=== PATIENT | female | born 1985 | race African-American/Black ===

== ENCOUNTER 2016-06-19 13:46 | Inpatient (IN) | payer MEDICAID, OTHER ==
[~2016-06-19 13:46] MED LIST: AMO500 PO; NIFE60TA60 PO
[2016-06-19] MEDS: LACTATED RINGER'S 1,000 ML IV SCH ×2 (15:20→23:30)
--- NOTE | 2016-06-19 16:35 | RADRPT ---
PROCEDURE: Limited obstetric ultrasound CLINICAL INDICATION: Pain TECHNIQUE: Multiple transverse and longitudinal grayscale images of the pelvis were obtained baltazar sabdominally and transvaginally.. COMPARISON: same day FINDINGS: The cervix is closed with a length of 3.3 cm. RPTAT: AA IMPRESSION: Cervix length measures 3.3 cm. .Tavon Mishra MD, MD Date Time Electronically viewed and signed by .Tavon Mishra MD, MD on 06/19/2016 16:35 .S/
--- NOTE | 2016-06-19 16:44 | RADRPT ---
AMENDMENT: 06/19/2016 6:19:36 PM Tavon Mishra M.D The EFW = 403 g, <3%, based on LMP age. PROCEDURE: US OB. CLINICAL INDICATION: pain TECHNIQUE: Multiple sonographic images of the pelvis and gravid uterus were obtained. The images were reviewed on a PACS workstation. COMPARISON: No prior studies are available for comparison. FINDINGS: The cervix is closed with a length of 3.3 cm. There is a single viable intrauterine gestation. Cardiac activity is present with 171 beats per min erin. There is a vertex presentation. The placenta is anterior. There is no evidence for an abruption or placenta previa. There is a normal amount of amniotic fluid with an ALPESH = 15.8 cm. Measurements were made in order to determine age. The results are as follows: BPD =5.3 cm HC =19.1 cm AC =16.3 cm FL =3.4 cm Estimated gestational age of approximately 21 weeks and 3 days based on ultrasound measurements. Clinical age: 26 weeks and 5 days. The estimated date of delivery is 10/27/16, based on ultrasound measurements. The EFW = 103 g, <3%, based on LMP age. RPTAT: AA IMPRESSION: Single viable intrauterine gestation of approximately 21 weeks and 3 days based on ultrasound measu rements. .Tavon Mishra MD, MD Date Time Electronically viewed and signed by .Tavon Mishra MD, MD on 06/19/2016 18:20 .S/
[2016-06-19 16:52] LABS: BASOPHIL # 0.1 10^3/ul (0.0-0.1); BASOPHILS % 0.6 % (0.0-2.0); EOSINOPHILS % 0.5 % (0.0-7.0); HEMOGLOBIN 13.2 g/dl (12.0-16.0); LYMPHOCYTES # 1.6 10^3/ul (0.8-2.9); LYMPHOCYTES % 17.2 % (15.0-51.0); MEAN CORPUSCULAR HEMOGLOBIN 30.2 pg (29.0-33.0); MEAN CORPUSCULAR HGB CONC 33.8 g/dl (32.0-37.0); MEAN CORPUSCULAR VOLUME 89.3 fl (82.0-101.0); MEAN PLATELET VOLUME 9.2 fl (7.4-10.4); MONOCYTE # 0.5 10^3/ul (0.3-0.9); MONOCYTES % 4.8 % (0.0-11.0); NEUTROPHIL # 7.2 10^3/ul (1.6-7.5); NEUTROPHILS % 76.9 % (39.0-77.0); PLATELET COUNT 250 10^3/UL (140-440); RED BLOOD COUNT 4.37 10^6/ul (4.20-5.40); RED CELL DISTRIBUTION WIDTH 13.4 % (11.5-14.5); UNCORRECTED WBC 9.4 10^3/ul (4.8-10.8); WHITE BLOOD COUNT 9.4 10^3/ul (4.8-10.8)
[2016-06-19 16:56] LABS: INR 1.02; PROTIME 13.4 Sec (12.2-14.2)
[2016-06-19 16:57] LABS: ALBUMIN 3.6 g/dl (3.3-4.9); PARTIAL THROMBOPLASTIN TIME 28.4 Sec (25.0-35.0)
[2016-06-19 16:58] LABS: POTASSIUM 4.1 mmol/L (3.5-5.1)
[2016-06-19 17:00] LABS: ALBUMIN/GLOBULIN RATIO 1.02; BILIRUBIN,INDIRECT 0.3 mg/dl (0-1.1); BILIRUBIN,TOTAL 0.3 mg/dl (0.2-1.3); CREATININE 0.57 mg/dl (0.44-1.00); TOTAL PROTEIN 7.1 g/dl (6.1-8.1)
[2016-06-19 17:01] LABS: CALCIUM 8.7 mg/dl (8.4-10.2); URIC ACID 3.4 mg/dl (3.1-7.9)
[2016-06-19 17:17] LABS: CONDITION 1
[2016-06-19 17:19] LABS: ADD UMIC YES; URINE BILIRUBIN (Dip) NEGATIVE (NEGATIVE); URINE BLOOD (Dip) 2+ (NEGATIVE); URINE COLOR LT. YELLOW (YELLOW); URINE GLUCOSE (Dip) NEGATIVE (NEGATIVE); URINE KETONES (Dip) NEGATIVE (NEGATIVE); URINE LEUKOCYTE ESTERASE (Dip) TRACE (NEGATIVE); URINE NITRITE (Dip) NEGATIVE (NEGATIVE); URINE TOTAL PROTEIN (Dip) NEGATIVE (NEGATIVE); URINE UROBILINOGEN (Dip) 0.2 E.U./dL (0.1-1.0)
[2016-06-19 17:39] LABS: BACTERIA,URINE MODERATE; MUCUS,URINE MODERATE; SQUAMOUS EPITHELIAL CELL,UR MANY
[2016-06-19 18:01] LABS: CANNABINOIDS Negative (NEGATIVE)
[2016-06-19 18:18] LABS: BARBITURATES Negative (NEGATIVE); BENZODIAZEPINES Negative (NEGATIVE); COCAINE Negative (NEGATIVE); OPIATES Negative (NEGATIVE)
--- NOTE | 2016-06-19 18:30 | QN ---
Documentation Comment 30 years old with IUP at 21 weeks and 3 days with no prental care presented to L&D due to lgith vaginal bleeding had this arternoon. Denies any LOF. Feels some cramps. Patient has no care. reports her LMP estimated to be in , stated that she had been seen once on 02/01/2016 at [facility] due to nausea and severe headache and was told that she is . Denies having any ultrasound or care so far. She was noted to have elevated blood pressure on arrival. Her BPP was 180/100- 190's/105. She denies any blurred vision or epigastric pain. She reports history of preclampsia in prior and IUGR . Patient refused antihypertensive medications. She denies any known history of HTN. Reports had some nausea and side effects with all antihypertensive medications in the prior and therefore refuse treatment of HTN even after prolonged counseling about the risks for stroke, cardiovascular disorder, renarl failure, maternal deathm seizure as well as risk for IUFD, severe IUGR and catastrophic maternal and consequences. after detailed and repeated counseling, patient still refusing treatment and verbalized understainding all above risks and stated because of risks associated with antihypertensive meds, refused meds. I discussed with her in detail at this point risks of antihypertensive meds are much less than the benefits, but still she refuses. Us after arrival ordered that showes GA at 21 weeks and 3 days. CL: 3.3 cm. No previa noted with no evidence of abruption. EFW < 3 % by GA by LMP EGA by the time that she was seen at ED at , would be arround 23 weeks and 6 days which could be arround the viability. SSE : performed . Cervix looks closed and long and no blood seen in the vault I explained to the patient due to non availability of early ultrasound and poor dating, her GA would be between 21-23 + weeks. increased risk for labor due to presence of vaginal bleeding and cramping can not be excluded. I discussed this case with Dr. Rene an who recommended to proceed with consultation with inspector and if inspector would not resuscitate the baby in case of PTD at this EFW, would not recommend tocolysis or steriod.. How ever, if inspector consider resuscitation in the case of PTD, would consider steriod and tocolysis. After discussion with the patient about recommendation of perinatologist, patient refused tocolysis. She stated that she would not either consider recieving steriods or any other intervention at this time, She agreed to only being monitored in the hospital and being seen tomorrow by perinatologist. She understands the risk for PTD, IUFD., still , seizure, matenal and with no intervention at this situation. Will be admitted to antepartum service for overnight observation Patient has been signed out to the upcoming laborist. KRISTOFER PEPPER MD Jun 19, 2016 18:29
--- NOTE | 2016-06-19 20:43 | TRIAGE ---
OB Triage Datetime Report Generated by CPN: 06/19/2016 20:42 Datetime: 06/19/2016 20:23 Monitor Mode: External US Datetime: 06/19/2016 20:09 Monitor Mode: External US Datetime: 06/19/2016 20:00 Labor Evaluation Frequency: 1 Monitor Mode: External Duration (sec)2399: 50 Quality: Mild Pattern: Normal: <= 5 Contractions in 10 Minutes Resting Tone [employer]: Relaxed Heart Rate FHR Baseline Rate: 145 Monitor Mode: External US Variability: Moderate 6-25 bpm Accelerations: 10X10 Decelerations: None Datetime: 06/19/2016 19:00 Stage of : OB Triage Maternal Assessment Level of Consciousness: Fully Conscious DTR's/Clonus: DTRs 1+ Headache: Denies Breath Sounds, Left: Clear and Equal Breath Sounds, Right: Clear and Equal Nausea/Vomiting: Denies RUQ Epigastric Pain: Denies Labor Evaluation Frequency: 1 Monitor Mode: External Duration (sec)2399: 40 Quality: Mild Pattern: Normal: <= 5 Contractions in 10 Minutes Resting Tone [employer]: Relaxed Heart Rate FHR Baseline Rate: 150 Monitor Mode: External US Variability: Moderate 6-25 bpm Accelerations: 10X10 Decelerations: None Category: Category I Pain Presence: None/Denies Pain Type: N/A Pain Goal: 0 Membrane Status: Intact Datetime: 06/19/2016 18:27 EGA: 26.5 Datetime: 06/19/2016 18:00 Stage of : OB Triage Maternal Assessment Level of Consciousness: Fully Conscious DTR's/Clonus: DTRs 1+ Headache: Denies Breath Sounds, Left: Clear and Equal Breath Sounds, Right: Clear and Equal Nausea/Vomiting: Denies RUQ Epigastric Pain: Denies Labor Evaluation Frequency: 1 Monitor Mode: External Duration (sec)2399: 40 Quality: Mild Pattern: Normal: <= 5 Contractions in 10 Minutes Resting Tone [employer]: Relaxed Heart Rate FHR Baseline Rate: 150 Monitor Mode: External US Variability: Moderate 6-25 bpm Accelerations: 10X10 Decelerations: None Category: Category I Pain Presence: None/Denies Pain Type: N/A Pain Goal: 0 Membrane Status: Intact Datetime: 06/19/2016 17:26 Stage of : OB Triage Datetime: 06/19/2016 17:09 Maternal Assessment Level of Consciousness: Fully Conscious DTR's/Clonus: DTRs 1+ Headache: Denies Blurred Vision: No Respiratory Effort: Unlabored Breath Sounds, Left: Clear and Equal Breath Sounds, Right: Clear and Equal Nausea/Vomiting: Denies RUQ Epigastric Pain: Denies Facial Edema: None Labor Evaluation Frequency: NONE Monitor Mode: External Resting Tone [employer]: Relaxed Heart Rate FHR Baseline Rate: 150 Monitor Mode: External US Variability: Moderate 6-25 bpm Accelerations: 10X10 Decelerations: None Category: Category I Pain Presence: None/Denies Pain Type: N/A Membrane Status: Intact Datetime: 06/19/2016 16:55 Vaginal Exam Dilatation (cms): 0.0 Effacement (%): 0 Station: -4 Exam By: DR PEPPER Vaginal Bleeding: Normal Show Cervix, Consistency: Firm Cervix, Position: Posterior Datetime: 06/19/2016 15:26 Maternal Assessment Level of Consciousness: Fully Conscious DTR's/Clonus: DTRs 1+ Headache: Denies Blurred Vision: No Nausea/Vomiting: Denies RUQ Epigastric Pain: Denies Facial Edema: None Labor Evaluation Frequency: X1 Monitor Mode: External Duration (sec)2399: 30 Quality: Mild Pattern: Normal: <= 5 Contractions in 10 Minutes Resting Tone [employer]: Relaxed Heart Rate FHR Baseline Rate: 150 Monitor Mode: External US Variability: Moderate 6-25 bpm Accelerations: 10X10 Decelerations: None Category: Category I Pain Assessment Pain Scale: 0 Pain Presence: None/Denies Pain Type: N/A Pain Goal: 3 Membrane Status: Intact Datetime: 06/19/2016 15:03 Stage of : OB Triage Maternal Assessment Level of Consciousness: Fully Conscious DTR's/Clonus: DTRs 1+ Headache: Denies Blurred Vision: No Respiratory Effort: Unlabored Breath Sounds, Left: Clear and Equal Breath Sounds, Right: Clear and Equal Nausea/Vomiting: Denies RUQ Epigastric Pain: Denies Facial Edema: None Labor Evaluation Frequency: NONW Pattern: Normal: <= 5 Contractions in 10 Minutes Resting Tone [employer]: Relaxed Heart Rate FHR Baseline Rate: 145 Monitor Mode: External US Variability: Moderate 6-25 bpm Accelerations: 10X10 Decelerations: None Category: Category I Pain Assessment Pain Scale: 0 Pain Presence: None/Denies Pain Type: N/A Pain Goal: 3 Membrane Status: Intact Datetime: 06/19/2016 14:33 Stage of : OB Triage Datetime: 06/19/2016 14:20 Maternal Assessment Level of Consciousness: Fully Conscious DTR's/Clonus: DTRs 1+ Headache: Denies Blurred Vision: No Nausea/Vomiting: Denies RUQ Epigastric Pain: Denies Facial Edema: None Labor Evaluation Frequency: NONE Monitor Mode: External Resting Tone [employer]: Relaxed Heart Rate FHR Baseline Rate: 150 Monitor Mode: External US Variability: Moderate 6-25 bpm Accelerations: 10X10 Decelerations: None Category: Category I Pain Presence: None/Denies Pain Type: N/A Pain Assessment Comments: PT STATES THAT SHE HAS HAD THIS HIGH BLOOD PRESSURE EPISODES USUSALLY AF TER HER LAST WORKING DAY 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 PT STATES THAT USUALLY SHE REST FOR 3 DAYS ANS A ROW AND THEN HER B/P GOES BACK TO NORMAL AND GOES BA CK TO NORMAL AGAIN. Membrane Status: Intact Datetime: 06/19/2016 13:45 Time of Arrival: 06/19/2016 13:45 Arrived By: Wheelchair Arrived From: Home Chief Complaint: PT CAME IN C/O VAGINAL SPOTTING AND PELVIC PAIN SINCE THIS AM. PT ALSO STATES CHRISTIANNE T SHE HAS BEEN DIAGNOSED WITH PRE-ECLAMSIA WITH PREVIOUS PREGNANCIES AND THIS ONE AND HAS REFUSED TR EATMENT UP TO DATE. PT DENIES HAVING A HEADACHE, VISION CHANGES, EPIGASTRIC PAIN, DTR'S ARE +1 , AN D DENIES GENERALIZED SWELLING. PT STATES HAVING MOVEMENT AND DENIES ANY CONTRACTION AT THIS TI ME Movement: Present Contractions: Denies/Absent Rupture of Membranes: Denies Vaginal Discharge: Denies Recent Sexual Intercouse: Denies Additional Patient Complaints: NONE Provider Notified: SHANTELLE Initial Plan: PIH PANEL, EFW, UA, ALPESH
--- NOTE | 2016-06-19 22:28 | HP ---
Date/Time of Note Date/Time of Note DATE: 06/19/16 TIME: 22:28 OB - History Hx of Present Free Text/Dictation 30 years old with IUP at 21 weeks and 3 days with no prental care presented to L&D due to light vaginal bleeding had this arternoon. Denies any LOF. Feels some cramps. Patient has no care. reports her LMP estimated to be in , stated that she had been seen once on 02/01/2016 at [facility] due to nausea and severe headache and was told that she is . Denies having any ultrasound or care so far. She was noted to have elevated blood pressure on arrival. Her BPP was 180/100- 190's/105. She denies any blurred vision or epigastric pain. She reports history of preclampsia in prior and IUGR . Patient refused antihypertensive medications. She denies any known history of HTN. Reports had some nausea and side effects with all antihypertensive medications in the prior and therefore refuse treatment of HTN even after prolonged counseling about the risks for stroke, cardiovascular disorder, renarl failure, maternal , seizure as well as risk for IUFD, severe IUGR and catastrophic maternal and consequences. after detailed and repeated counseling, patient still refusing treatment , even alternative antiHypertensives and verbalized understainding all above risks and stated because of risks associated with antihypertensive meds, refuses meds. I discussed with her in detail at this point risks of antihypertensive meds are much less than the benefits, but still she refuses. Us after arrival ordered that showes GA at 21 weeks and 3 days. CL: 3.3 cm. No previa noted with no evidence of abruption noted in ultrasound. EFW < 3 % by GA by LMP. I discussed with the patient due to discrepency of up to 2 weeks in second trimester in context of poor dating, and CHTN and likely growth restriction, baby EGA could be anywhere arround the viability. SSE : performed . Cervix looks closed and long and no blood seen in the vault Risk of labor due to cramping and vaginal bleeding vs abruption could not been eliminated. . I discussed this case with Dr. Rene NAAVS edge bonder who recommended to proceed with consultation with fermenting cellars receiver and if fermenting cellars receiver would not resuscitate the baby with less than 500 gram, in case of PTD would not recommend tocolysis or steriod.. How ever, if fermenting cellars receiver consider resuscitation in the case of PTD with current reported EFW, would consider steriod and tocolysis. After discussion with the patient about recommendation of perinatologist, patient refused tocolysis. She stated that she would not either consider recieving steriods or any other intervention at this time, She agreed to only being monitored in the hospital and being seen tomorrow by perinatologist. She understands the risk for PTD, IUFD., still , seizure, matenal and with no intervention at this situation. Will be admitted to antepartum service for overnight observation Patient has been signed out to the upcoming laborist. : 9 Para: 5 Care: None Ultrasounds: Other (see us report at this instituiton) Obstetrical Complications: Other (Poor dating, no care, history of preclampsia, severe elevated BP, consistent with likely CHTN) Past Family/Social History * Past Medical, Surgical, Family and Obstetric Histories reviewed from chart. OB Admission Exam Physical Exam HEENT: WNL Heart: Rhythm Normal Lungs: Clear Abdomen: WNL Extremities: Normal Cervical Dilatation: None Effacement: 0% Station: Other (in SSE: Cevix closed and long , no blood in the vault. exam done witj the same findings ) Membranes: Intact Heart Rate: 120's Intensity: Mild Last 72 hours Lab Results CBC & BMP 06/19/16 15:20 Liver Function Test 06/19/16 15:20 Alanine Aminotransferase (ALT/SGPT) 14 Albumin 3.6 Alkaline Phosphatase 82 Aspartate Amino Transf (AST/SGOT) 16 Direct Bilirubin 0.00 Total Protein 7.1 OB Assessment/Plan Reason for admission: vaginal bleeding Other Assessment: Poor dating IUP at 21-23+ weeks likely CHTN vs PIH PIH labs negative Blood pressure in severe range. Meet the criteria for intervention. Declined all antihypertensive meds after detailed and multiple prolonged counseling Vaginal bleeding, scant with cramps. at risk for abruption , can not r/o PTL Fetus could be arround the viablity since it could be well growth restricted. Declined all interventions including steriods and tocolysis and understands all the above risks Desires only been monitored in the hospital. Stated that is afraid of having miscarriage at home , since she knows that she has bleeding and might miscarried U tox negative Consider rn social work and psych consultation Lan and perinatologist consultation. obtain all records KRISTOFER PEPPER MD Jun 19, 2016 22:28
[2016-06-19] MEDS ORDERED: LACTATED RINGER'S 1,000 ML IV SCH (22:36)
[2016-06-19 23:54] LABS: BASOPHILS % 0.4 % (0.0-2.0); EOSINOPHILS % 0.5 % (0.0-7.0); HEMATOCRIT 36.4 % (37.0-47.0); HEMOGLOBIN 12.5 g/dl (12.0-16.0); LYMPHOCYTES # 2.1 10^3/ul (0.8-2.9); LYMPHOCYTES % 22.8 % (15.0-51.0); MEAN CORPUSCULAR HEMOGLOBIN 30.2 pg (29.0-33.0); MEAN CORPUSCULAR HGB CONC 34.4 g/dl (32.0-37.0); MEAN CORPUSCULAR VOLUME 87.8 fl (82.0-101.0); MONOCYTE # 0.5 10^3/ul (0.3-0.9); MONOCYTES % 5.8 % (0.0-11.0); NEUTROPHIL # 6.7 10^3/ul (1.6-7.5); NEUTROPHILS % 70.5 % (39.0-77.0); PLATELET COUNT 231 10^3/UL (140-440); RED BLOOD COUNT 4.15 10^6/ul (4.20-5.40); RED CELL DISTRIBUTION WIDTH 13.3 % (11.5-14.5); UNCORRECTED WBC 9.4 10^3/ul (4.8-10.8); WHITE BLOOD COUNT 9.4 10^3/ul (4.8-10.8)
[2016-06-20 00:02] LABS: CONDITION 1
[2016-06-20] MEDS: LACTATED RINGER'S 1,000 ML IV SCH ×3 (04:40→20:31)
[2016-06-20] MEDS ORDERED: LABETALOL 100 MG TAB PO SCH ×3 (12:00→21:00)
[2016-06-20] MEDS ORDERED: traMADol 50 MG TAB PO ONE (15:00)
--- NOTE | 2016-06-20 16:53 | CONS ---
DATE OF ADMISSION: 06/19/2016 DATE OF CONSULTATION: 06/20/2016 REQUESTING PHYSICIAN: Linda Cyr MD HISTORY OF PRESENT ILLNESS: I spoke with Ms. House in her room regarding the risks associated with delivery and hypertension. This mother is 30 years old 9, para 5, AB 3 pre senting to [facility] with vaginal spotting, labor and increased blood pre ssures. The mother has refused steroids and magnesium sulfate and is being started on labetalol aft er consult with Dr. Vergara. Mother has had no visits. Her gestational age by ultr asound is 21 and 3/7 weeks with estimated weight of 403 grams or by possible last menstrual pe riod of 26 and 5/7 weeks. Mother believes that it is probably the 21 week gestation. I discussed w ith the mother the risks associated with delivery including but not limited to the following : 1. At 21 and 3/7 weeks this infant is in a previable category and with the weight of only 403 grams and by NRP standards would not be a candidate for resuscitation because of extreme prematurity and extreme low weight. I discussed with her the possibility if the gestation could be prolonged at least another 2 to 3 weeks that there would be the possibility of resuscitation by both the weigh t and gestational age criteria. Also the use of steroids at that time would be helpful as well as t he correction of the hypertension to maintain adequate growth. Some of the risks Include the followin. Respiratory. This infant is at significant risk even at 24 weeks of gestation for respiratory d istress syndrome requiring significant mechanical ventilation, oxygen support and the risks of chron ic lung disease as well as apnea of prematurity. I discussed the use of ventilatory management as w ell as steroids assisting in stabilizing the lungs and the use of surfactant. I spoke about the risks of cardiac disease including patent ductus arteriosus, its treatment either medical or surgical, hypotension and the use of inotropic agents and steroids. I spoke about the risks of infection, especially if rupture of membranes occurs prior to the time of delivery and that at 24 weeks there is significant risk and the long-term decreasing with the advan cement in gestational age. I spoke about the risks of anemia, the use of transfusions, jaundice and the use of phototherapy. I spoke about the risks of intraventricular hemorrhage, as well as its grading system and the antici pated long-term neuro developmental issues associated with grade III and grade IV intraventricular h emorrhages. At 24 weeks gestation, the risk is probably 75 to 80% for grade III to IV intraventricu lar hemorrhage with long-term sequelae decreasing to probably between 25 and 30% by 28 weeks of gest ation. I spoke about the long-term morbidity of those infants that survive as well as survivability at 24 w eeks this is probably less than 30% survivability with most of these infants having significant long -term morbidities either neural developmental and/or respiratory, ophthalmologic etc. I spoke about the differences associated at 28 weeks and 32 weeks of gestation in all of these areas. The mother is still refusing steroids since she feels she is at 21 weeks of gestation, but will cons ider them when she reaches over 24 weeks of gestation as well as the use of tocolytics. She has bee n started on hypertensive medications. I discussed with her the need for good nutrition management of her including her hypertension. Thank you for this consult. If you have any further questions, please do not hesitate to contact me . Dictated By: CONCETTA MOTLEY/SKYLER Conf#: [id number] DID#: [id number]
[2016-06-20] MEDS ORDERED: HYDROCODONE/APAP (5/325) TAB PO ONE ×2 (17:00)
[2016-06-20] MEDS ORDERED: IBUPROFEN 600 MG TAB PO ONE (17:30)
[2016-06-20] MEDS ORDERED: METOCLOPRAMIDE 10 MG INJ IV ONE (19:30)
--- NOTE | 2016-06-20 20:57 | CONS ---
DATE OF ADMISSION: 06/19/2016 DATE OF CONSULTATION: 06/20/2016 INDICATION FOR CONSULTATION: High blood pressure. PRESENTING COMPLAINT: ____. HISTORY OF PRESENTING COMPLAINT: Ms. House is a 30-year-old female who is a 9 para 5, has h ad 2 spontaneous abortions who presented to our triage unit with concerns for vaginal fullness. The patient had no care, and, upon arrival, she was noted to have severely elevated blood pres sures in the 200s. The patient has been quite difficult to manage for the obstetric pain, because t he patient is adamantly refusing blood pressure medication, reporting that they make her sicker inst ead of better. So, my understanding, the patient refused delivery's recommendation for blood pressu re, but now medicine consult was obtained and eventually she was given 1 dose of labetalol ear ly 100 mg today. That improved her blood pressure to systolics of 140s; however, the patient report ed tension headaches or migraines associated with nausea, which she attributes to the blood pressure medicine, labetalol. We are being consulted to evaluate the patient for a possible cause of the el evated blood pressure that is not obvious. However, the patient reports to me that in her last preg marquez, she did have high blood pressure in . She was treated with intravenous magnesium, w hich she is absolutely refusing to take this time. She states that, after delivering the baby, she was treated with Procardia, which controlled her blood pressure quite well. She states she was even tually taken off of this as an outpatient by an outpatient rn documentation. She has not taken blood pr essure medicine since and she has not checked her blood pressure since. She denies any feeling of h eadache, dizziness prior to admission. She has the symptoms right now, but she attributes those to the blood pressure medicine she was given since being admitted. PAST MEDICAL HISTORY: Positive only for gestational hypertension as well as multiple pregnancies. PAST SURGICAL HISTORY: Positive for a salpingectomy for an ectopic . ALLERGIES: SHE REPORTS ALLERGY TO ASPIRIN WELL NOW LABETALOL. REVIEW OF SYSTEMS: A full 12-point review of systems, essentially pertinent findings are as noted i n HPI. SOCIAL HISTORY: She denies tobacco, alcohol, or illicit drug use. FAMILY HISTORY: She denies history of difficulty to control high blood pressure. PHYSICAL EXAMINATION: VITAL SIGNS: At this time, the vital signs are stable. As mentioned earlier, last blood pressure w as 144/75. GENERAL: She was alert and oriented, in no distress. HEENT: Head is normocephalic. Pupils were equal and reactive. Mucous membranes are moist. NECK: Supple. CHEST: Clear. CARDIOVASCULAR: S1 and S2 without added sounds or murmurs. ABDOMEN: Gravid, soft, nontender. She had normoactive bowel sounds. EXTREMITIES: There was no lower extremity edema. NEUROLOGIC: She had no focal deficits. SKIN: Devoid of rash or jaundice. LABORATORY VALUES: Her urinalysis was reviewed and was ____ for probable urinary tract infection. The rest of her labs were reviewed and unremarkable. ASSESSMENT: A 30-year-old female with chronic hypertension and gravid at 26 weeks and 5 days with e levated blood pressure for which we are consulted for blood pressure management, as well as to rule out secondary causes of hypertension. It is my opinion that this patient just has poorly controlled chronic hypertension due to that she has been noncompliant with therapy because says that medicatio ns might harm her. At this point, it seems that delivery has struck and agreement with her to start her on really low doses of labetalol and titrate up as tolerated. I agree with this plan, as the p atient is not willing to try any other regimen. I will therefore defer to maternal specialist to continue blood pressure control. Regarding ruling out secondary causes, I will order a renal ul trasound to rule out renal artery stenosis and I will order 2D echocardiogram to ensure that there h as been no fdc effect of her chronic hypertension on her cardiac musculature. Other than that, I do not think any further intervention is warranted. It is my opinion that the patient needs ornamental metal erector apprentice ej fdc management, but she has to be convinced to take this therapy. This, I will defer to th e labor for the health of herself and her baby. I have indicated this to her; however, I am not rebekah e how much she understands. Her urine is also mildly suggestive of a urinary tract infection, so I will be ordering a urine culture. I will follow up on this test tomorrow and other interventions wi ll depend on clinical findings. I thank you for this consult and I will follow the patient with you. Dictated By: TRACEY WINN MD, BA/SKYLER Conf#: [id number] DID#: [id number]
--- NOTE | 2016-06-21 00:32 | CONS ---
DATE OF ADMISSION: 06/19/2016 DATE OF CONSULTATION: HISTORY OF PRESENT ILLNESS: The patient is a 30-year-old, presented yesterday with complaint of vag inal bleeding. Upon admission, she was found to have very severe-range blood pressures as far as sy stolic blood pressures 190s to 200s and diastolic blood pressure up to 105, 110. The patient denies any headache, chest pain, nausea or vomiting. She experienced vaginal bleeding yesterday, and she complained of occasional cramping. Cervical length was measured, and it was 3.3 cm and cervix and a pparently closed. There is an evidence of abruption of about 1 x 4 cm based on the ultrasound done yesterday. Her history is significant for preeclampsia and placental abruption, patient at 37 weeks 2 years ago. She has so far declined any treatment for her blood pressure as she states that she h as no symptoms. Also, after I started speaking to her, it appears that patient has had bad reaction s to many blood pressure medications which she does not recall the names. She states that upon rece iving blood pressure medication with her last , she had numbness of one side of her extremi ties. She experienced swelling and numbness. Apparently after she delivered, she had a large hemorrhage but no DIC. Also she mentioned that magn esium sulfate caused her swelling. heart tones are reassuring for the gestational age. In terms of her gestational age, she has not had previous ultrasound for comparison, and also she has not had care as she states she has been feeling well and she does not feel that she needed to have care, especially with her experience that she had with the previous . 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 I explained to her that essentially what she experienced last time most likely was not secondary to the effect of blood pressure medications and it was effect of increased blood pressures on her nervo us system and her blood vessels and also that preeclampsia can cause swelling. In terms of the gestational age, as I mentioned above, she has not had any previous ultrasound. She is unsure of her last menstrual period. Ultrasound yesterday was done which showed the gestational age to be about 21 weeks and due date of 10/27. This morning, she had some pinkish discharge. It was no problem, but as I have been talking to her, she has experienced 1 cramping. PAST MEDICAL HISTORY: Hypertension. However, the patient has not had any care after delivery. She mentioned that after delivery last time, her blood pressures suddenly increased to about 200 mmHg s ystolic. She was given some blood pressure medication that finally she did well with. She was on b lood pressure medication for about 4 weeks, and after that, she mentioned her blood pressures decrea sed to about 140 to 80, and after that, she stopped the medication, and she has not been on any medi cation ever since. REVIEW OF SYSTEMS: Per above, otherwise negative. PHYSICAL EXAMINATION: VITAL SIGNS: Currently blood pressure is 163/106. Physical exam deferred. Ultrasound as above. heart tone as above. LABORATORY: Platelets, AST, ALT, creatinine are within normal limits. Protein in UA shows no evide nce of protein. [id number] urine has not been started for collection. IMPRESSION: Intrauterine with severe, currently chronic hypertension leading to some smal l placental abruption. The patient has had multiple problems with multiple blood pressure medicatio ns per her with the previous . However, it is difficult to associate whether the problems were the side effects for the medication or because of her preeclampsia. I explained in detail about the physiology as what is going on, and I asked her if she would allow _ ___ to start her on a very, very low dose of labetalol 100 mg twice a day and follow the patient. I explained to her that severe-range blood pressures could lead to full placental abruption, de mise and can lead to maternal , DIC, and it is very important for her blood pressures to be con trolled. I also explained to her that the goal for the blood pressure management at this point is to decrease the blood pressure to about 140s to 160s over 80s to 90s as lowering it further would actually harm to the fetus and the mother as she is not accustomed to normal blood pressures. Currently, I do recommend to continue with ANNETTA of 10/27 as there is no previous ultrasound for christo vogel, the patient is not sure of her last menstrual period, and she reports 2 last menstrual period s, and one of her last menstrual periods actually coordinates with the ANNETTA of 10/27 that was obtaine d from her ultrasound yesterday. RECOMMENDATIONS: Labetalol 100 mg twice a day should be started. Please monitor blood pressures closely, and we can always decrease the dose if needed and patient delgado s problems with that to a lower dose. However, again, it's a very, very low dose of blood pressure medication. The goal for the blood pressure on this patient is systolic 140s to 160s and diastolics 80s to 90s. Please collect 24-hour urine for protein and creatinine clearance. Currently pre-viable gestation, and as such, betamethasone is not indicated. Please note that the patient has reaction to Tylenol and it should be avoided, and also SHE IS ALLER GIC TO ASPIRIN. Please locate her records from 2 years ago at the time [facility] delivery and [facility] the name of the hypertension medication she received and she was happy with at the previous . If labetalol 100 mg twice a day, she reacts to that, despite severe decrease in the blood pressure, Internal Medicine should be consulted to evaluate the hypertension further, and this patient is 30-y ear-old, she does not have any family history suggestive of young hypertension, and other causes of hypertension should be considered, especially if she reacts badly to the very, very low dose of the labetalol. I talked to her about the necessity of the patient choosing an automatic stacker and having perinatology followup. I spoke to the patient in detail for about 40 minutes. I spoke to Dr. Cuellar, who is the laborist and will take care of the patient today, and I also spoke to the nurse in detail about what I discu ssed at this point. Dictated By: CHANELL SCHREIBER/SKYLER Conf#: [id number] DID#: [id number]
[2016-06-21] MEDS: LACTATED RINGER'S 1,000 ML IV SCH (04:10)
[2016-06-21] MEDS ORDERED: METOCLOPRAMIDE 10 MG INJ IV PRN ×2 (05:30)
[2016-06-21] MEDS ORDERED: ACETAMINOPHEN 500 MG TAB PO PRN (09:00)
--- NOTE | 2016-06-21 09:24 | PN ---
Date/Time of Note Date/Time of Note DATE: 06/21/16 TIME: 09:05 OB Subjective Subjective Subjective 06/21/2016 Hospital consult and discharge summary: This patient is a 30 yol SAB2 ectopic 1, who was admitted on 06-19 due to vaginal spotting and elevated BpP odf 180/100 and 176/109 She has a poor OB history: Here is partial observation by perinatologist Dr Amado: The patient is a 30-year-old, presented yesterday with complaint of vaginal bleeding. Upon admission, she was found to have very severe-range blood pressures as far as systolic blood pressures 190s to 200s and diastolic blood pressure up to 105, 110. The patient denies any headache, chest pain, nausea or vomiting. She experienced vaginal bleeding yesterday, and she complained of occasional cramping. Cervical length was measured, and it was 3.3 cm and cervix and apparently closed. There is an evidence of abruption of about 1 x 4 cm based on the ultrasound done yesterday. Her history is significant for preeclampsia and placental abruption, patient at 37 weeks 2 years ago. She has so far declined any treatment for her blood pressure as she states that she has no symptoms. Also, after I started speaking to her, it appears that patient has had bad reactions to many blood pressure medications which she does not recall the names. She states that upon receiving blood pressure medication with her last , she had numbness of one side of her extremities. She experienced swelling and numbness. Her lab works so far were WNL .She has several complains and wants to leave the hospital because Labetalol of 50 mg every 12 hours make her sick! She wants to go home and leave the hospital AMA. Her 24 hour urine collection is not completed yet. I discussed Current Medications Medications (Trade) Dose Ordered Sig/Rosanne Route PRN Reason Start Time Stop Time Status Last Admin Dose Admin Lactated Ringer's 1,000 ml @ 125 mls/hr Q8H IV 06/19/16 15:30 06/21/16 04:10 Lactated Ringer's (Lr) 1,000 ml @ 125 mls/hr Q8H IV 06/19/16 22:36 06/19/16 22:41 DC Labetalol HCl (Normodyne) 100 mg BID PO 06/20/16 12:00 06/20/16 18:13 DC 06/20/16 12:40 Tramadol HCl (Ultram) 50 mg ONCE ONCE PO 06/20/16 15:00 06/20/16 15:01 DC 06/20/16 15:36 Acetaminophen/ Hydrocodone Bitart (Vanderbilt (5/325)) 1 tab ONCE ONCE PO 06/20/16 17:00 06/20/16 18:24 DC 06/20/16 17:33 Acetaminophen/ Hydrocodone Bitart (Vanderbilt (5/325)) 1 tab ONCE ONCE PO 06/20/16 17:00 06/20/16 17:28 DC Ibuprofen (Motrin) 600 mg ONCE ONCE PO 06/20/16 17:30 06/20/16 17:31 DC 06/20/16 17:36 Labetalol HCl (Normodyne) 100 mg BID PO 06/20/16 21:00 06/20/16 21:00 DC Labetalol HCl (Normodyne) 50 mg BID PO 06/20/16 21:00 06/20/16 21:22 Metoclopramide HCl (Reglan) 5 mg ONCE ONCE IV 06/20/16 19:30 06/20/16 19:31 DC 06/20/16 20:29 Metoclopramide HCl (Reglan) 5 mg Q6H PRN IV NAUSEA 06/21/16 05:30 Metoclopramide HCl (Reglan) 10 mg Q6H PRN IV NAUSEA 06/21/16 05:30 06/21/16 05:29 Acetaminophen (Tylenol Tab) 1,000 mg Q6H PRN PO PAIN AND OR ELEVATED TEMP 06/21/16 09:00 06/21/16 08:48 her situation with regarding staying at least one more day. but she is already changing cloths to go home .Her lab works are not very abnormal. she promised to continue urine collection and bring back the container on time . BRITTANI HUBBARD MD Jun 21, 2016 09:19
--- NOTE | 2016-06-21 10:11 | RADRPT ---
Echocardiogram Report Patient Name: MARY HAMM Gender: Female Date: 1985 Study Date: 21-Jun-2016 Resource Conservation Specialist: Joanne Quinn [facility] Location: [id number] Ref. Physician: TRACEY WINN Quality: Good Procedures: Transthoracic echocardiogram with complete 2D, M-Mode, and doppler examination. Indications: Chronic Hypertension. 2D/M Mode Doppler Measurement Value Normal Ranges Measurement Value Normal Ranges LVIDd 2D 4.4 3.5 - 5.6 cm AV Peak Herminio 1.6 m/sec LVIDs 2D 2.4 2.1 - 4.1 cm AV Peak PG 10.0 mmHg FS 2D 44.0 % LVOT Peak Herminio 1.2 m/sec LVPWd 2D 1.1 0.6 - 1.1 cm LVOT Peak PG 5.0 mmHg IVSd 2D 1.1 0.6 - 1.1 cm MV E Peak Herminio 0.9 m/sec IVS/LVPW 2D 1.0 MV A Peak Herminio 0.7 m/sec AoR Diam 2D 2.5 2.0 - 3.7 cm MV E/A 1.4 LA/Ao 2D 1 0 - 1 MV Decel Time 190 msec EDV 2D 82.9 cm3 MV E/A 1.4 ESV 2D 14.5 cm3 TR Peak Herminio 2.3 m/sec LA Dimen 2D 3.2 2.3 - 4.0 cm TR Peak PG 20.0 mmHg RVSP 23.0 mmHg Findings Left Ventricle: Normal left ventricular systolic function. Normal left ventricular cavity size. Mild concentric left ventricular hypertrophy. Ejection fraction is visually estimated at 65 %. Tissue Doppler/Mitral Doppler indices are within normal limits. Right Ventricle: Normal right ventricular size. Normal right ventricular systolic function. Left Atrium: The left atrium is normal in size. Right Atrium: The right atrium is normal in size. Mitral Valve: Normal appearance and function of the mitral valve with trace physiologic regurgitation. Aortic Valve: Normal appearance of the aortic valve. No significant aortic stenosis or insufficiency. Tricuspid Valve: Normal appearance of the tricuspid valve. Estimated peak PA systolic pressure 23 mmHg. There is trace tricuspid regurgitation. Pericardium: Normal pericardium with no significant pericardial effusion. Aorta: Normal aortic root. IVC: Normal size and normal respiratory collapse consistent with normal right atrial pressure. Conclusions 1.Normal left ventricular systolic function. Normal left ventricular cavity size. Mild concentric left ventricular hypertrophy. Ejection fraction is visually estimated at 65 %. Tissue Doppler/Mitral Doppler indices are within normal limits. 2.Normal appearance and function of the mitral valve with trace physiologic regurgitation. 3.Normal appearance of the aortic valve. No significant aortic stenosis or insufficiency. 4.Normal appearance of the tricuspid valve. Estimated peak PA systolic pressure 23 mmHg. There is trace tricuspid regurgitation. Electronically Signed By: Jose Good 21-Jun-2016 10:10:11 0800 Patient Name: MARY HAMM Study Date: 21-Jun-[id number]
== END 2016-06-21 09:05 | disposition left against medical advice (07) | DRG 781 ==
LOC: OBT 13:46 → L-D 13:49 → OBT 18:55 → OBG 18:55
PROVIDERS: ADMIT Obstetrics & Gynecology Obstetrics; ATTEND Obstetrics & Gynecology Obstetrics
DX: O16.2 Unspecified maternal hypertension, second trimester (principal); Z3A.26 26 weeks gestation of pregnancy
CPT/HCPCS: 36415; 76775; 76815; 76817; 80053; 80307; 81001; 81003; 83036; 84439; 84443; 84560; 85025; 85610; 85730; 86592; 86703; 86762; 86900; 86901; 87340; 93306; 96360; 96361; G0463; J2765; J7120

== ENCOUNTER 2016-06-21 22:59 | Outpatient (CLI) | payer MEDICAID ==
--- NOTE | 2016-06-21 23:27 | TRIAGE ---
OB Triage Datetime Report Generated by CPN: 06/21/2016 23:26 Datetime: 06/21/2016 23:15 Time of Arrival: 06/21/2016 22:55 EGA: 27.0 Arrived By: Ambulatory Arrived From: Home Chief Complaint: to ER triage and states was inpt on 2NE but went home AMA in am because "I w as being overmedicated for my BP." States "I am only here to drop off the 24hr urine collection." Movement: Present Contractions: Denies/Absent Rupture of Membranes: Denies Vaginal Bleeding: None Vaginal Discharge: Denies Recent Sexual Intercouse: Denies Abdominal Trauma: Not Applicable Patient Complaints: None Time Provider Notified: 06/21/2016 23:10 Provider Notified: Dr Samaniego Datetime: 06/21/2016 08:56 Stage of : Antepartum Datetime: 06/21/2016 08:54 Stage of : Antepartum Datetime: 06/21/2016 08:30 Stage of : Antepartum Datetime: 06/21/2016 06:39 Stage of : Antepartum Datetime: 06/21/2016 06:28 Stage of : Antepartum Level of Consciousness: Fully Conscious Headache: Denies Frequency: NONE Monitor Mode: External Pattern: Normal: <= 5 Contractions in 10 Minutes Resting Tone [place]: Relaxed Pain Type: Dull Pain Location: Head Pain Goal: 3 Pain Relief Measures: Pain Medication Given; Comfort Measures Datetime: 06/21/2016 05:39 Stage of : Antepartum Level of Consciousness: Fully Conscious Headache: Denies Frequency: NONE Monitor Mode: External Pattern: Normal: <= 5 Contractions in 10 Minutes Resting Tone [place]: Relaxed Pain Type: Dull Pain Location: Head Pain Goal: 3 Pain Relief Measures: Pain Medication Given; Comfort Measures Datetime: 06/21/2016 04:39 Stage of : Antepartum Level of Consciousness: Fully Conscious Headache: Denies Nausea/Vomiting: Present (Annotations: Emesis of 50 ml, bile in color. Pt stated that she has sle pt all night with no issues until now. She was getting up to go to the restroom.) Temperature Route: Oral Frequency: NONE Monitor Mode: External Pattern: Normal: <= 5 Contractions in 10 Minutes Resting Tone [place]: Relaxed Pain Type: Dull Pain Location: Head Pain Goal: 3 Pain Relief Measures: Pain Medication Given; Comfort Measures Datetime: 06/21/2016 03:39 Stage of : Antepartum Level of Consciousness: Fully Conscious Headache: Denies Nausea/Vomiting: Denies Frequency: NONE Monitor Mode: External Pattern: Normal: <= 5 Contractions in 10 Minutes Resting Tone [place]: Relaxed Pain Type: Dull Pain Location: Head Pain Goal: 3 Pain Relief Measures: Pain Medication Given; Comfort Measures Datetime: 06/21/2016 02:39 Stage of : Antepartum Level of Consciousness: Fully Conscious Headache: Denies Nausea/Vomiting: Denies Frequency: NONE Monitor Mode: External Pattern: Normal: <= 5 Contractions in 10 Minutes Resting Tone [place]: Relaxed Pain Type: Dull Pain Location: Head Pain Goal: 3 Pain Relief Measures: Pain Medication Given; Comfort Measures Datetime: 06/21/2016 01:39 Stage of : Antepartum Level of Consciousness: Fully Conscious Headache: Denies Nausea/Vomiting: Denies Frequency: NONE Monitor Mode: External Pattern: Normal: <= 5 Contractions in 10 Minutes Resting Tone [place]: Relaxed Pain Type: Dull Pain Location: Head Pain Goal: 3 Pain Relief Measures: Pain Medication Given; Comfort Measures Datetime: 06/21/2016 00:39 Stage of : Antepartum Level of Consciousness: Fully Conscious Headache: Denies Nausea/Vomiting: Hx of Nausea/Vomiting Temperature Route: Oral Frequency: NONE Monitor Mode: External Pattern: Normal: <= 5 Contractions in 10 Minutes Resting Tone [place]: Relaxed Pain Presence: Constant Pain Type: Dull Pain Location: Head Pain Goal: 3 Pain Relief Measures: Pain Medication Given; Comfort Measures Pain Assessment Comments: Pt states she feels the Reglan helped the most of anything given since s he was admitted today. Datetime: 06/20/2016 23:39 Stage of : Antepartum Level of Consciousness: Fully Conscious DTR's/Clonus: DTRs 2+; No Clonus Headache: Denies Nausea/Vomiting: Hx of Nausea/Vomiting RUQ Epigastric Pain: Denies Frequency: NONE Monitor Mode: External Pattern: Normal: <= 5 Contractions in 10 Minutes Resting Tone [place]: Relaxed Pain Presence: Constant Pain Type: Dull Pain Location: Head Pain Goal: 3 Pain Relief Measures: Pain Medication Given; Comfort Measures Datetime: 06/20/2016 22:39 Stage of : Antepartum Level of Consciousness: Fully Conscious DTR's/Clonus: DTRs 2+; No Clonus Headache: Denies Nausea/Vomiting: Denies Nausea/Vomiting: Hx of Nausea/Vomiting RUQ Epigastric Pain: Denies Frequency: NONE Monitor Mode: External Pattern: Normal: <= 5 Contractions in 10 Minutes Resting Tone [place]: Relaxed Monitor Mode: External US Pain Presence: Constant Pain Type: Dull Pain Location: Head Pain Goal: 3 Pain Relief Measures: Pain Medication Given; Comfort Measures Datetime: 06/20/2016 21:39 Stage of : Antepartum Level of Consciousness: Fully Conscious DTR's/Clonus: DTRs 2+; No Clonus Headache: Denies Breath Sounds, Left: Clear and Equal Breath Sounds, Right: Clear and Equal Nausea/Vomiting: Denies RUQ Epigastric Pain: Denies Frequency: NONE Monitor Mode: External Pattern: Normal: <= 5 Contractions in 10 Minutes Resting Tone [place]: Relaxed Datetime: 06/20/2016 20:39 Stage of : Antepartum Level of Consciousness: Fully Conscious DTR's/Clonus: DTRs 2+; No Clonus Headache: Denies Breath Sounds, Left: Clear and Equal Breath Sounds, Right: Clear and Equal Nausea/Vomiting: Denies RUQ Epigastric Pain: Denies Frequency: NONE Monitor Mode: External Pattern: Normal: <= 5 Contractions in 10 Minutes Resting Tone [place]: Relaxed Pain Presence: Constant Pain Type: Dull Pain Location: Head Pain Goal: 3 Pain Relief Measures: Pain Medication Given; Comfort Measures Datetime: 06/20/2016 19:52 Stage of : Antepartum Assessment Type: Ongoing Assessment Level of Consciousness: Fully Conscious DTR's/Clonus: DTRs 2+; No Clonus Headache: Denies Blurred Vision: No Respiratory Effort: Unlabored; Regular Rhythm; Equal Expansion Breath Sounds, Left: Clear and Equal Breath Sounds, Right: Clear and Equal Nausea/Vomiting: Denies RUQ Epigastric Pain: Denies Lower Extremities Edema: None Degree: None Upper Extremities Edema: None Degree: None Facial Edema: None Temperature Route: Oral History of Falling: (0) No Secondary Diagnosis: (0) No Ambulatory Aid: (0) Bedrest/Nurse Assist IV Therapy: (0) No Gait: (0) Normal/Bedrest/Immobile Mental Status: (0) Oriented to Own Ability Fall Score: 0 Fall Risk Score Definition: No Risk: No action required Frequency: NONE Monitor Mode: External Pattern: Normal: <= 5 Contractions in 10 Minutes Resting Tone [place]: Relaxed Pain Presence: Constant Pain Type: Dull Pain Location: Head Pain Goal: 3 Pain Relief Measures: Pain Medication Given; Comfort Measures Datetime: 06/20/2016 19:00 Frequency: NONE Monitor Mode: External Pattern: Normal: <= 5 Contractions in 10 Minutes Resting Tone [place]: Relaxed FHR Baseline Rate: 130 Monitor Mode: External US FHR Baseline Changes: No Baseline Change Variability: Moderate 6-25 bpm Accelerations: 10X10 Decelerations: None Category: Category I Datetime: 06/20/2016 18:00 Frequency: NONE Monitor Mode: External Pattern: Normal: <= 5 Contractions in 10 Minutes Resting Tone [place]: Relaxed FHR Baseline Rate: 130 Monitor Mode: External US Variability: Moderate 6-25 bpm Accelerations: 10X10 Decelerations: None Category: Category I Datetime: 06/20/2016 17:00 Frequency: NONE Monitor Mode: External Pattern: Normal: <= 5 Contractions in 10 Minutes Resting Tone [place]: Relaxed FHR Baseline Rate: 130 Monitor Mode: External US FHR Baseline Changes: No Baseline Change Variability: Moderate 6-25 bpm Accelerations: 10X10 Decelerations: None Category: Category I Datetime: 06/20/2016 16:30 Pain Scale: 8 Pain Presence: Constant Pain Type: SEVERE HEAD PAIN Pain Goal: 0 Datetime: 06/20/2016 16:00 Temperature Route: Oral Frequency: NONE Monitor Mode: External Pattern: Normal: <= 5 Contractions in 10 Minutes Resting Tone [place]: Relaxed Datetime: 06/20/2016 15:00 Frequency: NONE Monitor Mode: External Duration (sec)2399: 0 Pattern: Normal: <= 5 Contractions in 10 Minutes Resting Tone [place]: Relaxed Datetime: 06/20/2016 14:00 Frequency: NONE Monitor Mode: External Pattern: Normal: <= 5 Contractions in 10 Minutes Resting Tone [place]: Relaxed Datetime: 06/20/2016 08:17 Assessment Type: Ongoing Assessment Level of Consciousness: Fully Conscious DTR's/Clonus: DTRs 2+; No Clonus Headache: Denies Blurred Vision: No Respiratory Effort: Unlabored; Regular Rhythm; Equal Expansion Breath Sounds, Left: Clear and Equal Breath Sounds, Right: Clear and Equal Nausea/Vomiting: Denies RUQ Epigastric Pain: Denies Lower Extremities Edema: None Degree: None Upper Extremities Edema: None Degree: None Facial Edema: None History of Falling: (0) No Secondary Diagnosis: (0) No Ambulatory Aid: (0) Bedrest/Nurse Assist IV Therapy: (0) No Gait: (0) Normal/Bedrest/Immobile Mental Status: (0) Oriented to Own Ability Fall Score: 0 Fall Risk Score Definition: No Risk: No action required Datetime: 06/20/2016 07:00 Frequency: 0 Monitor Mode: External Resting Tone [place]: Relaxed FHR Baseline Rate: 150 Monitor Mode: External US FHR Baseline Changes: No Baseline Change Variability: Moderate 6-25 bpm Accelerations: 15X15 Decelerations: None Category: Category I Pain Scale: 0 Pain Presence: None/Denies Pain Type: N/A Datetime: 06/20/2016 06:00 Frequency: 0 Monitor Mode: External Resting Tone [place]: Relaxed Monitor Mode: External US Comments: UNABLE TO MONITOR HEART TONES Pain Scale: 0 Pain Presence: None/Denies Pain Type: N/A Datetime: 06/20/2016 05:00 Frequency: 0 Monitor Mode: External Resting Tone [place]: Relaxed Monitor Mode: External US Comments: UNABLE TO ASSESS Pain Presence: None/Denies Pain Type: N/A Datetime: 06/20/2016 04:00 Frequency: NONE SEEN Monitor Mode: External Resting Tone [place]: Relaxed Monitor Mode: External US Comments: UNABLE TO ASSESS HEART TONES Pain Scale: 0 Pain Presence: None/Denies Pain Type: N/A Datetime: 06/20/2016 02:00 Frequency: 0 Monitor Mode: External FHR Baseline Rate: 150 Monitor Mode: External US FHR Baseline Changes: No Baseline Change Variability: Minimal - Undetectable to <=5 bpm Accelerations: 15X15 Decelerations: None Category: Category I Comments: AGA Datetime: 06/20/2016 01:00 Frequency: 0 Monitor Mode: External FHR Baseline Rate: 150 Monitor Mode: External US FHR Baseline Changes: No Baseline Change Variability: Minimal - Undetectable to <=5 bpm Accelerations: 15X15 Decelerations: None Category: Category I Comments: AGA Datetime: 06/20/2016 00:17 Temperature Route: Oral Pain Scale: 5 Pain Presence: Intermittent Pain Type: Cramping Pain Location: Abdomen Pain Goal: 0 Pain Relief Measures: Comfort Measures Datetime: 06/20/2016 00:00 Frequency: 0 FHR Baseline Rate: 150 Monitor Mode: External US FHR Baseline Changes: No Baseline Change Variability: Minimal - Undetectable to <=5 bpm Accelerations: 15X15 Decelerations: Variable Category: Category II Datetime: 06/19/2016 23:00 Frequency: 0 Monitor Mode: External FHR Baseline Rate: 150 Monitor Mode: External US FHR Baseline Changes: No Baseline Change Variability: Minimal - Undetectable to <=5 bpm Accelerations: 10X10 Decelerations: Variable Category: Category II Datetime: 06/19/2016 22:00 Frequency: 0 Monitor Mode: External Contraction Comments: NO CTXS REGISTERING BUT SHE STATES SHE STILL FEELS CRAMPING. DIFFICULT TO MO NITOR FETUS AND CONTRACTIONS D/T GESTATIONAL AGE AND SMALL UTERUS ( FUNDUS AT UMBILICUS ). FHR Baseline Rate: 150 Monitor Mode: External US FHR Baseline Changes: No Baseline Change Variability: Minimal - Undetectable to <=5 bpm Accelerations: 10X10 Decelerations: None Category: Category I Comments: AGA Datetime: 06/19/2016 21:00 Assessment Type: Admission Assessment Level of Consciousness: Fully Conscious DTR's/Clonus: DTRs 2+; No Clonus Headache: Denies Blurred Vision: No Respiratory Effort: Unlabored; Regular Rhythm; Equal Expansion Breath Sounds, Left: Clear and Equal Breath Sounds, Right: Clear and Equal Nausea/Vomiting: Denies RUQ Epigastric Pain: Denies Facial Edema: None History of Falling: (0) No Secondary Diagnosis: (0) No Ambulatory Aid: (0) Bedrest/Nurse Assist Gait: (0) Normal/Bedrest/Immobile Mental Status: (0) Oriented to Own Ability Datetime: 06/19/2016 20:51 Temperature Route: Oral Pain Scale: 5 Pain Goal: 3 Pain Relief Measures: Comfort Measures Pain Assessment Comments: DENIES NEED FOR MED Datetime: 06/19/2016 20:35 Stage of : Antepartum Datetime: 06/19/2016 18:27 EGA: 26.5
== END 2016-06-21 23:02 | disposition left against medical advice (07) ==
LOC: OBT 22:59 → L-D 23:00 → OBT 23:02
PROVIDERS: ATTEND Obstetrics & Gynecology
DX: O26.892 Other specified pregnancy related conditions, second trimester (principal); Z3A.27 27 weeks gestation of pregnancy

== ENCOUNTER 2016-07-19 13:12 | Outpatient (CLI) | payer MEDICAID ==
[~2016-07-19] VITALS: Ht 167.6 cm; Wt 76.8 kg
[2016-07-19 13:25] VITALS: BP 177/106; PULSE 85; RESP 18; Ht 167.6 cm; Wt 76.8 kg
--- NOTE | 2016-07-19 14:54 | RADRPT ---
PROCEDURE: OB ultrasound for biophysical profile CLINICAL INDICATION: Cramping. Biophysical profile. . TECHNIQUE: Multiple sonographic images of the pelvis were obtained. Transabdominal view of the gr avid uterus are available for review. The images were reviewed on a PACS workstation. COMPARISON: None FINDINGS: breathing movement = 2/2 tone = 2/2 motion = 2/2 ALPESH = 2/2 Single intrauterine gestation is identified in cephalic position. heart rate is 159 bpm. Plac enta is anterior without evidence for abruption or previa. ALPESH measures 14.6 cm, within normal limi ts. IMPRESSION: 1. Single live intrauterine gestation. 2. Biophysical profile = 8/8. 3. ALPESH = 14.6 cm. RPTAT: QQ .Jose R Jarvis MD, Date Time Electronically viewed and signed by .Jose R Jarvis MD, on 07/19/2016 14:53 .R/
== END 2016-07-19 15:37 | disposition left against medical advice (07) ==
LOC: OBT 13:12 → L-D 13:13 → OBT 15:37
DX: O26.892 Other specified pregnancy related conditions, second trimester (principal); R10.9 Unspecified abdominal pain; Z3A.00 Weeks of gestation of pregnancy not specified
CPT/HCPCS: 76818; Z7500; G0463

== ENCOUNTER 2016-07-19 15:52 | Emergency (ER) | payer MEDICAID ==
[~2016-07-19] VITALS: Ht 167.6 cm; Wt 76.8 kg
[2016-07-19 16:03] VITALS: Ht 167.6 cm; Wt 76.8 kg
--- NOTE | 2016-07-19 16:51 | RADRPT ---
PROCEDURE: CT head without Contrast CLINICAL INDICATION: Status post fall with vomiting. The patient is 7-month TECHNIQUE: Transaxial images were made through the head on a multi-slice scanner without intraveno us contrast. Coronal and sagittal images were subsequently reformatted. The patient was shielded du ring the procedure. One or more of the following dose reduction techniques were used: - Automated exposure control. - Adjustment of the mA and/or kV according to patient size. - Use of iterative reconstruction technique. Radiation dose: CTDIvol = 44.68 mGy; DLP = 630.20 mGy-cm. COMPARISON: None FINDINGS: The calvarium appears intact. The mastoid air cells and paranasal sinuses are well-aerated.. The ventricles are normal in size and there is no midline shift. No intracranial bleed, mass, or extra-axial fluid collection is identified. There is good gentile-white matter differentiation. IMPRESSION: Unremarkable noncontrast enhanced CT scan of the head. Physician Mahnaz Date Time Electronically viewed and signed by Physician Mahnaz on 07/19/2016 16:51 /
[2016-07-19 17:26] VITALS: BP 159/87; PULSE 81; RESP 19
--- NOTE | 2016-07-19 19:21 | ERA ---
ER Documentation Chief Complaint Date/Time DATE: 07/19/16 TIME: 19:05 Chief Complaint head pain/injury - hit her head in the shower - 7 months HPI 30-year-old woman requesting CT imaging of the brain after falling in the bathroom last night and striking the left temporal parietal scalp against the tub. She states after the incident she vomited about 5-10 minutes later. She states today she has been feeling generally weak, cloudy, and out of it. She is over 30 weeks and presented today for an obstetric ultrasound, which was performed by our obstetrics department, and a CT scan of the brain. Obstetrics department could not clear her for any acute obstetric issues as she was extremely hypertensive so she was released AGAINST MEDICAL ADVICE. She denies headache or blurry vision, no weakness in her arms or legs, no difficulty ambulating, no complaints of chest pain or shortness of breath. Patient is at least G6 and states with all her she has been extremely hypertensive and does not "believe" in medications, and states in fact she does not even have a regular warp worker or physician, and does not want one. Patient also denied any domestic violence issues and states she was not punched or kicked in the head. ROS All systems reviewed and are negative except as per history of present illness. Medications Home Meds Discontinued Reported Medications Amoxicillin* (Amoxicillin*) 500 Mg Cap, 500 MG PO Q8, CAP 02/27/14 Discontinued Scripts Nifedipine* (Procardia XL*) 60 Mg/Bottle Tab.osm.24, 60 MG PO DAILY for 60 Days , TAB.SA Prov:JUAN MAGAÑA MD 02/02/14 Allergies Allergies: Coded Allergies: aspirin (Verified Allergy, Intermediate, UPSET STOMACH, 07/19/16) Uncoded Allergies: LABETOLOL (Adverse Reaction, Intermediate, RINGING IN EARS, CRAMPING, HEADACHE., 01/28/14) PMhx/Soc Hypertension, eclampsia, preeclampsia History of Surgery: No Anesthesia Reaction: No Hx Neurological Disorder: No Hx Respiratory Disorders: No Hx Cardiac Disorders: No (HTN) Hx Psychiatric Problems: No Hx Miscellaneous Medical Probl: Yes (dx: 37 wks IUP PIH) Hx Alcohol Use: Yes (socially before ) Hx Substance Use: No Hx Tobacco Use: No Smoking Status: Never smoker FmHx Family History: No diabetes Physical Exam Vitals Vital Signs Date Time Temp Pulse Resp B/P Pulse Ox O2 Delivery O2 Flow Rate FiO2 07/19/16 17:26 81 19 159/87 100 Room Air 07/19/16 16:03 98.8 87 19 184/116 100 Physical Exam GENERAL: Well-developed, well-nourished, well-hydrated, in no apparent distress , extremely hypertensive HEENT: Moist mucous membranes, pink conjunctiva, no cervical spine tenderness or step-off deformities, no goiter, no jaundice or icterus, extraocular movements intact without pain. No submandibular induration, and no pharyngeal erythema NEURO: Alert and oriented 3, cranial nerves II through XII intact bilaterally, pupils equal round reactive to light, no focal deficits or facial asymmetry, sensation intact distally Strength 5/5 in upper and lower extremities bilaterally CARDIAC: Regular rate and rhythm, no murmurs rubs or gallops LUNGS: Clear bilaterally no wheezing crackles or stridor ABDOMEN: Soft nontender, no guarding, no rigidity, no rebound, no psoas sign no obturator sign. Normoactive bowel sounds SKIN: Warm and dry to touch, no abrasions, contusions, or hematomas, no lacerations, no ecchymosis, no target lesions, and without ulcers EXTREMITIES: No clubbing cyanosis or edema, calves are bilaterally symmetrical, no Homans sign, no popliteal cord sign. Distal pulses equal and bilateral PSYCH: Normal affect without agitation or irritability Procedures/MDM CT scan of the brain was performed that was negative for acute bleed mass or shift. I kindly tried to explain in simple terms the scientific process and evidence- based medical decision making in regards to her condition and need for treatment. I was unable to steer her away from belief based thought process. I also explained to her thoroughly that I suspect her symptoms including the cloudiness, generalized weakness and dizziness, episodic tinnitus are most likely related to severe hypertension and preeclampsia, which is really at this point moving toward eclampsia. I explained to her complications of preeclampsia and eclampsia include but are not limited to aspiration pneumonia, cerebral hemorrhage, kidney failure, seizures, cardiac arrest, and even . I told her it would be in her best interest to stay for further emergency department evaluation, management, treatment, although patient remained firm in her beliefs and refused any further care. Differential diagnoses considered, included but not limited to acute coronary syndrome, pulmonary embolism, aortic dissection, abdominal aortic aneurysm, sepsis, stroke, meningitis, encephalitis, pneumonia, appendicitis, cholecystitis , bowel obstruction, pyelonephritis, nephrolithiasis, cystitis, as well as metabolic, hematologic, and electrolyte abnormalities. As well as abscess, cellulitis, fractures, and dislocations. Patient left AGAINST MEDICAL ADVICE. Departure Diagnosis: Primary Impression: Hypertension Qualified Code: I10 - Essential hypertension Additional Impressions: Concussion Qualified Code: S06.0X0A - Concussion, without loss of consciousness, initial encounter Eclampsia Condition: Fair Patient Instructions: Concussion, High Blood Pressure (Hypertension), Ovid Form - 1 Referrals: family physician EFREN SOUTH MD Jul 19, 2016 19:15
== END 2016-07-19 17:29 | disposition left against medical advice (07) ==
LOC: E/R 15:52
DX: O9A.213 Injury, poisoning and certain other consequences of external causes complicating pregnancy, third trimester (principal); S06.0X0A Concussion without loss of consciousness, initial encounter; O15.03 Eclampsia complicating pregnancy, third trimester; O10.013 Pre-existing essential hypertension complicating pregnancy, third trimester; R40.2142 Coma scale, eyes open, spontaneous, at arrival to emergency department; R40.2252 Coma scale, best verbal response, oriented, at arrival to emergency department; R40.2362 Coma scale, best motor response, obeys commands, at arrival to emergency department; W01.198A Fall on same level from slipping, tripping and stumbling with subsequent striking against other object, initial encounter; Y92.192 Bathroom in other specified residential institution as the place of occurrence of the external cause; Z3A.30 30 weeks gestation of pregnancy
CPT/HCPCS: 70450; Z7502

== ENCOUNTER 2016-09-01 15:13 | Outpatient (CLI) | payer MEDICAID ==
[~2016-09-01] VITALS: Ht 167.6 cm; Wt 77.1 kg
[2016-09-01 15:35] VITALS: BMI 27.4
[2016-09-01 15:36] VITALS: BP 165/98; PULSE 83; RESP 18; Ht 167.6 cm; Wt 77.1 kg
[2016-09-01 15:37] VITALS: BP 165/98; PULSE 83; RESP 18
--- NOTE | 2016-09-01 15:59 | RADRPT ---
PROCEDURE: US OB. CLINICAL INDICATION: Size and dates TECHNIQUE: Multiple sonographic images of the pelvis and gravid uterus were obtained. The images were reviewed on a PACS workstation. COMPARISON: 07/19/16 FINDINGS: There is a single viable intrauterine gestation. Cardiac activity is present with 141 beats per min erin. There is a vertex presentation. The placenta is anterior right. There is no evidence for an abruption or placenta previa. There is a normal amount of amniotic fluid with an ALPESH = 10.9 cm. Measurements were made in order to determine age. The results are as follows: BPD =7.7 cm HC =28 cm AC =28.5 cm FL =5.9 cm Estimated gestational age of approximately 31 weeks and 1 day based on ultrasound measurements. Clinical age: 32 weeks and 0 days. The estimated date of delivery is 11/02/16, based on ultrasound measurements. The EFW = 1808 g, 27.9%, based on LMP age. RPTAT: AA IMPRESSION: Single viable intrauterine gestation of approximately 31 weeks and 1 day based on ultrasound measur ements. .Tavon Mishra MD, Date Time Electronically viewed and signed by .Tavon Mishra MD, on 09/01/2016 15:58 .S/
--- NOTE | 2016-09-01 16:00 | RADRPT ---
PROCEDURE: US OB biophysical profile. Ultrasound cervix CLINICAL INDICATION: decreased movements, no PNR TECHNIQUE: Multiple sonographic images of the pelvis were obtained. The images were reviewed on a PACS workstation. In addition transvaginal images of the cervix were obtained. COMPARISON: 07/19/2016 FINDINGS: The cervix measures 4.5 cm in length. The cervix is heterogeneous with possible cystic changes. There is a single viable intrauterine gestation. Cardiac activity is present with 136 beats per min erin. There is a vertex presentation. The placenta is anterior right. There is no evidence for an abruption or placenta previa. There is a normal amount of amniotic fluid with an ALPESH = 10.9 cm. Biophysical profile: movement 2/2 tone 2/2. breathing 2/2 ALPESH 2/2 Total 01/17 RPTAT: AA . IMPRESSION: Normal biophysical profile. Heterogeneous cervix with possible cystic changes. . .Tavon Mishra MD, MD Date Time Electronically viewed and signed by .Tavon Mishra MD, on 09/01/2016 16:00 .S/
[2016-09-01 16:13] LABS: ADD SCAN DIFF NO
[2016-09-01 16:16] LABS: BASOPHILS % 0.4 % (0.0-2.0); EOSINOPHILS % 0.4 % (0.0-7.0); HEMATOCRIT 31.7 % (37.0-47.0); HEMOGLOBIN 10.8 g/dl (12.0-16.0); LYMPHOCYTES # 1.7 10^3/ul (0.8-2.9); LYMPHOCYTES % 21.5 % (15.0-51.0); MEAN CORPUSCULAR HEMOGLOBIN 28.7 pg (29.0-33.0); MEAN CORPUSCULAR HGB CONC 34.1 g/dl (32.0-37.0); MEAN CORPUSCULAR VOLUME 84.3 fl (82.0-101.0); MEAN PLATELET VOLUME 10.5 fl (7.4-10.4); MONOCYTE # 0.6 10^3/ul (0.3-0.9); MONOCYTES % 6.9 % (0.0-11.0); NEUTROPHIL # 5.7 10^3/ul (1.6-7.5); NEUTROPHILS % 70.7 % (39.0-77.0); PLATELET COUNT 222 10^3/UL (140-415); RED BLOOD COUNT 3.76 10^6/ul (4.20-5.40); RED CELL DISTRIBUTION WIDTH 12.3 % (11.5-14.5); WHITE BLOOD COUNT 8.1 10^3/ul (4.8-10.8)
[2016-09-01 16:23] LABS: ADD UMIC YES; URINE BILIRUBIN (Dip) NEGATIVE (NEGATIVE); URINE BLOOD (Dip) NEGATIVE (NEGATIVE); URINE COLOR LT. YELLOW (YELLOW); URINE GLUCOSE (Dip) NEGATIVE (NEGATIVE); URINE KETONES (Dip) TRACE (NEGATIVE); URINE LEUKOCYTE ESTERASE (Dip) 1+ (NEGATIVE); URINE NITRITE (Dip) NEGATIVE (NEGATIVE); URINE TOTAL PROTEIN (Dip) NEGATIVE (NEGATIVE); URINE UROBILINOGEN (Dip) 0.2 E.U./dL (0.1-1.0)
[2016-09-01 16:26] LABS: INR 1.03; PARTIAL THROMBOPLASTIN TIME 28.8 Sec (25.0-35.0); PROTIME 13.5 Sec (12.2-14.2); PT RATIO 1.1
[2016-09-01 16:31] LABS: BACTERIA,URINE MANY; SQUAMOUS EPITHELIAL CELL,UR MANY; URINE RBCS NONE SEEN /HPF (0)
[2016-09-01 16:35] LABS: ALBUMIN 3.1 g/dl (3.3-4.9)
[2016-09-01 16:36] LABS: POTASSIUM 3.6 mmol/L (3.5-5.1)
[2016-09-01 16:38] LABS: ALBUMIN/GLOBULIN RATIO 0.96; BILIRUBIN,INDIRECT 0.2 mg/dl (0-1.1); BILIRUBIN,TOTAL 0.2 mg/dl (0.2-1.3); CREATININE 0.59 mg/dl (0.44-1.00); TOTAL PROTEIN 6.3 g/dl (6.1-8.1)
[2016-09-01 16:39] LABS: CALCIUM 8.2 mg/dl (8.4-10.2); URIC ACID 4.5 mg/dl (3.1-7.9)
--- NOTE | 2016-09-01 17:01 | CONS ---
Date/Time of Note Date/Time of Note DATE: 09/01/16 TIME: 16:52 Consultation Date/Type/Reason Admit Date/Time September 01, 2069 OB triage consult Reason for Consultation This patient is a 31 years old 9 para 5 3 1 living following normal spontaneous vaginal delivery 5 her due date is 518 which makes her 32 weeks She came to triage complaining of vaginal bleeding and pressure She says she had intercourse last night On her history indicated that she had high blood pressure throughout her last but never took any hyper-antihypertension medication old baby survived for this reason she does not want to take any medication for her elevated blood pressure Her vital signs are normal except for elevated blood pressure her BP is 165/90 157/90-160 2/95 3 definitely pulse rate 83 respiration 18 temperature 98.2 On exam she is a young lady near term. Her ENT neck appears to be no chest is clear heart normal sinus rhythm abdomen is soft heart tone is normal around 135 bpm she has very rare heart rate tracing has fairly good variability and accelerations no decelerations. The lab study that we have done her CBC is normal except for some degree of anemia with hemoglobin of 10.8 hematocrit of 31.7 platelet 232,000 no protein in urine her NST is reactive on ultrasound biophysical profile was reported 01/17 with ALPESH of 10.9 cm estimated weight 1808 g cervical length was reported 4.5 cm Laboratory Tests Test 09/01/16 16:00 09/01/16 16:07 Urine Color LT. YELLOW Urine Clarity CLOUDY Urine pH 6.5 Urine Specific [place] 1.020 Urine Ketones TRACE Urine Nitrite NEGATIVE Urine Bilirubin NEGATIVE Urine Urobilinogen 0.2 E.U./dL Urine Leukocyte Esterase 1+ Urine Microscopic RBC NONE SEEN/HPF Urine Microscopic WBC >50/HPF Urine Squamous Epithelial Cells MANY Urine Bacteria MANY Urine Hemoglobin NEGATIVE Urine Glucose NEGATIVE% Urine Total Protein NEGATIVE White Blood Count 8.110^3/ul Red Blood Count 3.7610^6/ul Hemoglobin 10.8g/dl Hematocrit 31.7% Mean Corpuscular Volume 84.3fl Mean Corpuscular Hemoglobin 28.7pg Mean Corpuscular Hemoglobin Concent 34.1g/dl Red Cell Distribution Width 12.3% Platelet Count 77310^3/UL Mean Platelet Volume 10.5fl Neutrophils % 70.7% Lymphocytes % 21.5% Monocytes % 6.9% Eosinophils % 0.4% Basophils % 0.4% Nucleated Red Blood Cells % 0.0/100WBC Neutrophils # 5.710^3/ul Lymphocytes # 1.710^3/ul Monocytes # 0.610^3/ul Eosinophils # 0.010^3/ul Basophils # 0.010^3/ul Nucleated Red Blood Cells # 0.010^3/ul Prothrombin Time 13.5Sec Prothrombin Time Ratio 1.1 INR International Normalized Ratio 1.03 Activated Partial Thromboplast Time 28.8Sec Fibrinogen 446.0mg/dl Sodium Level 137mmol/L Potassium Level 3.6mmol/L Chloride Level 105mmol/L Carbon Dioxide Level 22mmol/L Anion Gap 14 Blood Urea Nitrogen 7mg/dl Creatinine 0.59mg/dl Glucose Level 95mg/dl Uric Acid 4.5mg/dl Calcium Level 8.2mg/dl Total Bilirubin 0.2mg/dl Direct Bilirubin 0.00mg/dl Indirect Bilirubin 0.2mg/dl Aspartate Amino Transf (AST/SGOT) 15IU/L Alanine Aminotransferase (ALT/SGPT) 17IU/L Alkaline Phosphatase 211IU/L Total Protein 6.3g/dl Albumin 3.1g/dl Globulin 3.20g/dl Albumin/Globulin Ratio 0.96 Constitutional: improved, no complaints, No chills, No diaphoresis, No disoriented, No febrile, No other, No poor po, No requiring IVF, No requiring O2 Eyes: No discharge, No no complaints, No other, No pain, No redness, No visual change ENT: No bleeding, No congestion, No discharge, No dysphagia, No no complaints, No other, No pain, No sore throat Respiratory: other (Elevated blood pressure with average of 160/90), No cough, No no complaints, No pain, No pleuritic pain, No shortness of breath, No sputum, No wheezing Cardiovascular: No chest pain, No edema, No lightheadedness, No no complaints, No orthopenea, No other, No palpitations, No paroxysmal nocturnal dyspnea Gastrointestinal: No blood, No constipation, No decreased appetite, No diarrhea , No flatus, No nausea, No no complaints, No other, No pain, No passing stool, No vomiting Genitourinary: other (On pelvic exam her cervix is closed and long with intact membrane apparently), No bleeding, No discharge, No dysuria, No flank pain, No hematuria, No no complaints Musculoskeletal: No back pain, No bone/joint pain, No neck pain, No no complaints, No other, No restricted range of motion, No swelling Skin: No bruising, No erythema, No laceration, No no complaints, No other, No pruritis, No rash, No skin lesions Neurologic: other (Knee-jerk reflexes 1+), No confusion, No dizziness, No focal-weakness, No headache, No no complaints , No seizure, No syncope Endocrine: No dry skin, No no complaints, No other, No polydypsia, No polyuria , No temp intolerance Psychological: No anxiety, No confusion, No depression, No nl mood/affect, No no complaints, No other, No suicidal Immunologic: No immunodeficiency, No no complaints, No other, No pruritis, No rhinitis, No urticaria Social History Smoking Status: Never smoker Exam/Review of Systems Vital Signs Vitals Vital Signs Date Time Temp Pulse Resp B/P Pulse Ox O2 Delivery O2 Flow Rate FiO2 09/01/16 15:37 98.2 83 18 165/98 Room Air Results Result Diagram: 09/01/16 1607 09/01/16 1607 Results 24 hrs Laboratory Tests Test 09/01/16 16:00 09/01/16 16:07 Urine Color LT. YELLOW Urine Clarity CLOUDY Urine pH 6.5 Urine Specific [place] 1.020 Urine Ketones TRACE H Urine Nitrite NEGATIVE Urine Bilirubin NEGATIVE Urine Urobilinogen 0.2 E.U./dL Urine Leukocyte Esterase 1+ H Urine Microscopic RBC NONE SEEN Urine Microscopic WBC >50 Urine Squamous Epithelial Cells MANY Urine Bacteria MANY Urine Hemoglobin NEGATIVE Urine Glucose NEGATIVE Urine Total Protein NEGATIVE White Blood Count 8.1 Red Blood Count 3.76 L Hemoglobin 10.8 L Hematocrit 31.7 L Mean Corpuscular Volume 84.3 Mean Corpuscular Hemoglobin 28.7 L Mean Corpuscular Hemoglobin Concent 34.1 Red Cell Distribution Width 12.3 Platelet Count 222 Mean Platelet Volume 10.5 H Neutrophils % 70.7 Lymphocytes % 21.5 Monocytes % 6.9 Eosinophils % 0.4 Basophils % 0.4 Nucleated Red Blood Cells % 0.0 Neutrophils # 5.7 Lymphocytes # 1.7 Monocytes # 0.6 Eosinophils # 0.0 Basophils # 0.0 Nucleated Red Blood Cells # 0.0 Prothrombin Time 13.5 Prothrombin Time Ratio 1.1 INR International Normalized Ratio 1.03 Activated Partial Thromboplast Time 28.8 Fibrinogen 446.0 Sodium Level 137 Potassium Level 3.6 Chloride Level 105 Carbon Dioxide Level 22 Anion Gap 14 Blood Urea Nitrogen 7 Creatinine 0.59 Glucose Level 95 Uric Acid 4.5 Calcium Level 8.2 L Total Bilirubin 0.2 Direct Bilirubin 0.00 Indirect Bilirubin 0.2 Aspartate Amino Transf (AST/SGOT) 15 Alanine Aminotransferase (ALT/SGPT) 17 Alkaline Phosphatase 211 H Total Protein 6.3 Albumin 3.1 L Globulin 3.20 Albumin/Globulin Ratio 0.96 BRITTANI HUBBARD MD Sep 01, 2016 17:01
--- NOTE | 2016-09-01 17:21 | QN ---
Documentation Comment September 01, 2016 This is an addendum to the triage consult already dictated half an hour ago This patient and 31 with very high blood pressure 160/100 advised to start taking antihypertensive medication and to see perinatologist but she adamantly refused to take our advice. She said she do not want take any medication I do not want to do anything special , no visit no medication for high blood pressure. For this reason we requested to sign an AMA form indicating that she would be responsible for any consequences of not following to standard medical care. I spent at least another 20 minutes to explain to her that elevated blood pressure during can harm the baby to placenta future of the baby and you do not necessarily have any symptoms to start taking medication but she totally refused end of dictation thank you BRITTANI HUBBARD MD Sep 01, 2016 17:21
== END 2016-09-01 17:35 | disposition home or self-care (01) ==
LOC: OBT 15:13 → L-D 15:13 → OBT 17:35
DX: O16.3 Unspecified maternal hypertension, third trimester (principal); Z3A.32 32 weeks gestation of pregnancy
CPT/HCPCS: 76815; 76817; 76818; 80053; 81001; 84560; 85025; 85384; 85610; 85730; Z7500; 81003; G0463

== ENCOUNTER 2016-09-28 08:56 | Inpatient (IN) | payer MEDICAID, OTHER ==
[~2016-09-28] VITALS: Ht 167.6 cm; Wt 77.8 kg
[2016-09-28 09:18] VITALS: BP 203/127; PULSE 65; RESP 18; BMI 27.5
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
[2016-09-28 10:41] LABS: ADD SCAN DIFF NO
[2016-09-28 10:49] LABS: BASOPHILS % 0.5 % (0.0-2.0); EOSINOPHILS % 0.5 % (0.0-7.0); HEMATOCRIT 33.8 % (37.0-47.0); HEMOGLOBIN 11.6 g/dl (12.0-16.0); LYMPHOCYTES % 25.6 % (15.0-51.0); MEAN CORPUSCULAR HEMOGLOBIN 29.1 pg (29.0-33.0); MEAN CORPUSCULAR HGB CONC 34.3 g/dl (32.0-37.0); MEAN CORPUSCULAR VOLUME 84.9 fl (82.0-101.0); MEAN PLATELET VOLUME 11.2 fl (7.4-10.4); MONOCYTE # 0.6 10^3/ul (0.3-0.9); MONOCYTES % 7.6 % (0.0-11.0); NEUTROPHIL # 5.1 10^3/ul (1.6-7.5); NEUTROPHILS % 65.5 % (39.0-77.0); PLATELET COUNT 207 10^3/UL (140-415); RED BLOOD COUNT 3.98 10^6/ul (4.20-5.40); RED CELL DISTRIBUTION WIDTH 12.7 % (11.5-14.5); WHITE BLOOD COUNT 7.7 10^3/ul (4.8-10.8)
[2016-09-28 11:02] LABS: ALBUMIN 3.1 g/dl (3.3-4.9)
[2016-09-28 11:05] LABS: ALBUMIN/GLOBULIN RATIO 0.91; BILIRUBIN,INDIRECT 0.3 mg/dl (0-1.1); BILIRUBIN,TOTAL 0.3 mg/dl (0.2-1.3); CREATININE 0.67 mg/dl (0.44-1.00); TOTAL PROTEIN 6.5 g/dl (6.1-8.1)
[2016-09-28 11:06] LABS: CALCIUM 8.6 mg/dl (8.4-10.2); URIC ACID 5.1 mg/dl (3.1-7.9)
[2016-09-28 11:08] LABS: INR 1.06; PARTIAL THROMBOPLASTIN TIME 26.9 Sec (25.0-35.0); PROTIME 13.8 Sec (12.2-14.2); PT RATIO 1.1
[2016-09-28] MEDS ORDERED: LACTATED RINGER'S 1,000 ML IV SCH (11:54)
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
[2016-09-28 12:50] LABS: ADD UMIC YES; URINE BILIRUBIN (Dip) NEGATIVE (NEGATIVE); URINE BLOOD (Dip) 3+ (NEGATIVE); URINE COLOR LT. YELLOW (YELLOW); URINE GLUCOSE (Dip) NEGATIVE (NEGATIVE); URINE KETONES (Dip) NEGATIVE (NEGATIVE); URINE LEUKOCYTE ESTERASE (Dip) 1+ (NEGATIVE); URINE NITRITE (Dip) NEGATIVE (NEGATIVE); URINE TOTAL PROTEIN (Dip) NEGATIVE (NEGATIVE); URINE UROBILINOGEN (Dip) 0.2 E.U./dL (0.1-1.0)
[2016-09-28 12:58] LABS: BACTERIA,URINE FEW
--- NOTE | 2016-09-28 13:04 | RADRPT ---
PROCEDURE: US OB limited. CLINICAL INDICATION: Intrauterine growth restriction. TECHNIQUE: Multiple transabdominal sonographic images of the pelvis were obtained. Doppler interrog ation of the umbilical artery was performed. COMPARISON: Biophysical profile and OB ultrasound 09/28/2016. FINDINGS: There is a single live intrauterine in cephalic presentation with heart motion of 16 5 beats per minute. The placenta is anteriorly located and without evidence of previa or abruption. Doppler evaluation of the umbilical artery demonstrates a normal wave form. S/D ratio is 2.5, whic h is within the range of normal. IMPRESSION: Normal umbilical arterial Doppler. RPTAT: [facility] .Sonal Cope MD, MD Date Time Electronically viewed and signed by .Sonal Cope MD, MD on 09/28/2016 13:04 .T/
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
[2016-09-29] MEDS ORDERED: LACTATED RINGER'S 1,000 ML IV SCH (10:43)
[2016-09-29] MEDS ORDERED: OXYTOCIN 30 UNITS/LR 500 ML IV SCH (11:00)
[2016-09-29] MEDS ORDERED: OXYTOCIN 30 UNITS/LR 500 ML IV PRN ×2 (11:00→19:00)
[2016-09-29] MEDS ORDERED: METHYLERGONOVINE 0.2 MG INJ IM PRN ×2 (11:00→19:00)
[2016-09-29] MEDS ORDERED: CEFAZOLIN 2 GM/50 ML (PMX) 50 ML IV SCH (11:00)
[2016-09-29] MEDS ORDERED: CARBOPROST 250 MCG INJ IM PRN ×2 (11:00→19:00)
[2016-09-29] MEDS ORDERED: MISOPROSTOL 200 MCG TAB PR PRN ×2 (11:00→19:00)
--- NOTE | 2016-09-29 11:40 | CONS ---
Date/Time of Note Date/Time of Note DATE: 09/29/16 TIME: 11:29 Consultation Date/Type/Reason Admit Date/Time September 29, 2016 Hospital consult and preoperative history and physical Reason for Consultation This patient is a 31 years old 6 para 2 who is about 35 weeks and 6 days she came to triage area a week ago with blood pressure 223/122 She was worked up for severe preeclampsia and possible chronic hypertension with superimposed -induced hypertension the ultrasound showed IUGR she was having dark color vaginal discharge and occasional bleeding She was advised regarding the termination of the either by section for possible vaginal delivery however she refused all and refused to have any medication for her hyper hypertension She was admitted again today with a little dark vaginal bleeding and again with blood pressure 203/127 Dr Vergara our perinatologist had a long discussion with her regarding the risk of this for the fetus and possible impending placenta separation and the need for termination of this again she refused. Finally by contacting her sister she agreed to have her section to be performed today . The risk associated with the section including infection, excessive blood loss and need for transfusion as well as unpredictable condition condition of the new born was discussed with her again We called senior oracle dba also to attend the Laboratory Tests Test 09/28/16 11:55 Urine Color LT. YELLOW Urine Clarity CLEAR Urine pH 6.5 Urine Specific [place] 1.015 Urine Ketones NEGATIVE Urine Nitrite NEGATIVE Urine Bilirubin NEGATIVE Urine Urobilinogen 0.2 E.U./dL Urine Leukocyte Esterase 1+ Urine Microscopic RBC 5-10/HPF Urine Microscopic WBC 2-5/HPF Urine Epithelial Cells OCCASIONAL Urine Bacteria FEW Urine Hemoglobin 3+ Urine Glucose NEGATIVE% Urine Total Protein NEGATIVE Current Medications Medications (Trade) Dose Ordered Sig/Rosanne Route PRN Reason Start Time Stop Time Status Last Admin Dose Admin Lactated Ringer's 1,000 ml @ 125 mls/hr Q8H IV 09/28/16 11:54 09/29/16 11:13 DC Lactated Ringer's 1,000 ml @ 125 mls/hr Q8H IV 09/29/16 10:43 Cefazolin Sodium/ Dextrose 50 ml @ 100 mls/hr ONCE IV 09/29/16 11:00 Oxytocin/Lactated Ringer's 500 ml @ 125 mls/hr ONCE IV 09/29/16 11:00 Oxytocin/Lactated Ringer's 500 ml @ 0 mls/hr ONCE PRN IV For Hemorrhage Management 09/29/16 11:00 Methylergonovine Maleate (Methergine) 0.2 mg ONCE PRN IM VAGINAL BLEEDING 09/29/16 11:00 Carboprost Tromethamine (Hemabate) 250 mcg ONCE PRN IM VAGINAL BLEEDING 09/29/16 11:00 Misoprostol (Cytotec) 1,000 mcg ONCE PRN SD VAGINAL BLEEDING 09/29/16 11:00 Constitutional: improved, no complaints, No chills, No diaphoresis, No disoriented, No febrile, No other, No poor po, No requiring IVF, No requiring O2 Eyes: No discharge, No no complaints, No other, No pain, No redness, No visual change ENT: No bleeding, No congestion, No discharge, No dysphagia, No no complaints, No other, No pain, No sore throat Respiratory: No cough, No no complaints, No other, No pain, No pleuritic pain, No shortness of breath, No sputum, No wheezing Cardiovascular: other (Extremely elevated blood pressure in the range of 200/ 100 30s), No chest pain, No edema, No lightheadedness, No no complaints, No orthopenea , No palpitations, No paroxysmal nocturnal dyspnea Gastrointestinal: No blood, No constipation, No decreased appetite, No diarrhea , No flatus, No nausea, No no complaints, No other, No pain, No passing stool, No vomiting Genitourinary: other (Pelvic exam earlier showed a dark vaginal discharge cervix was less than 1 finger), No bleeding, No discharge, No dysuria, No flank pain, No hematuria, No no complaints Musculoskeletal: No back pain, No bone/joint pain, No neck pain, No no complaints, No other, No restricted range of motion, No swelling Skin: No bruising, No erythema, No laceration, No no complaints, No other, No pruritis, No rash, No skin lesions Neurologic: other (Sharp knee-jerk reflex), No confusion, No dizziness, No focal-weakness, No headache, No no complaints , No seizure, No syncope Endocrine: No dry skin, No no complaints, No other, No polydypsia, No polyuria , No temp intolerance Lymphatic: No adenopathy, No lymphadema, No no complaints, No other, No tender nodes Social History Smoking Status: Never smoker Exam/Review of Systems Vital Signs Vitals Vital Signs Date Time Temp Pulse Resp B/P Pulse Ox O2 Delivery O2 Flow Rate FiO2 09/28/16 09:18 98.0 65 18 203/127 99 Room Air Intake and Output 09/28/16 09/28/16 09/29/16 15:00 23:00 07:00 Output Total 1200 ml Balance -1200 ml Results Result Diagram: 09/28/16 1010 09/28/16 1010 Results 24 hrs Laboratory Tests Test 09/28/16 11:55 Urine Color LT. YELLOW Urine Clarity CLEAR Urine pH 6.5 Urine Specific [place] 1.015 Urine Ketones NEGATIVE Urine Nitrite NEGATIVE Urine Bilirubin NEGATIVE Urine Urobilinogen 0.2 E.U./dL Urine Leukocyte Esterase 1+ H Urine Microscopic RBC 5-10 Urine Microscopic WBC 2-5 Urine Epithelial Cells OCCASIONAL Urine Bacteria FEW Urine Hemoglobin 3+ H Urine Glucose NEGATIVE Urine Total Protein NEGATIVE Medications Medications Current Medications Lactated Ringer's 1,000 ml @ 125 mls/hr Q8H IV ; Start 09/29/16 at 10:43 Cefazolin Sodium/ Dextrose 50 ml @ 100 mls/hr ONCE IV ; Start 09/29/16 at 11:00 Oxytocin/Lactated Ringer's 500 ml @ 125 mls/hr ONCE IV ; Start 09/29/16 at 11: 00 Oxytocin/Lactated Ringer's 500 ml @ 0 mls/hr ONCE PRN IV For Hemorrhage Management; Start 09/29/16 at 11:00 Methylergonovine Maleate (Methergine) 0.2 mg ONCE PRN IM VAGINAL BLEEDING; Start 09/29/16 at 11:00 Carboprost Tromethamine (Hemabate) 250 mcg ONCE PRN IM VAGINAL BLEEDING; Start 09/29/16 at 11:00 Misoprostol (Cytotec) 1,000 mcg ONCE PRN SD VAGINAL BLEEDING; Start 09/29/16 at 11:00 BRITTANI HUBBARD MD Sep 29, 2016 11:40
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
[2016-09-29 12:22] LABS: ADD SCAN DIFF NO
[2016-09-29] MEDS ORDERED: CITRIC ACID/NA CITRATE 30 ML CUP PO ONE (12:30)
[2016-09-29] MEDS ORDERED: KETOROLAC 30 MG INJ IV PRN (12:30)
[2016-09-29] MEDS ORDERED: ZOLPIDEM 5 MG TAB PO PRN (12:30)
[2016-09-29] MEDS ORDERED: ONDANSETRON 4 MG INJ IV PRN (12:30)
[2016-09-29] MEDS ORDERED: HYDROmorphONE 1 MG/ML SYG IV PRN ×2 (12:30)
[2016-09-29] MEDS ORDERED: DIPHENHYDRAMINE 50 MG INJ IV PRN (12:30)
[2016-09-29] MEDS ORDERED: NALOXONE (0.4 MG/ML) INJ IV PRN (12:30)
[2016-09-29 12:41] LABS: INR 1.03; PROTIME 13.5 Sec (12.2-14.2); PT RATIO 1.1
[2016-09-29 12:42] LABS: PARTIAL THROMBOPLASTIN TIME 26.3 Sec (25.0-35.0)
[2016-09-29] MEDS ORDERED: FENTAnyl 50 MCG/ML VIAL ONE (12:47)
[2016-09-29] MEDS ORDERED: morphine SULFATE/PF (10 MG/10 ML) INJ ONE (12:47)
[2016-09-29] MEDS ORDERED: DEXAMETHASONE 4 MG/ML 1 ML INJ ONE (13:59)
[2016-09-29] MEDS ORDERED: ONDANSETRON 4 MG INJ ONE (13:59)
--- NOTE | 2016-09-29 14:44 | OPR ---
Operative Report Planned Procedure Procedure date Sep 29, 2016 Procedure(s) Procedure: primary After spinal anesthesia had been dosed and tested, the patient was placed supine on the Operating Room table and prepped and draped in the usual sterile fashion for a section. A Pfannenstiel incision was made through the abdomen and carried down to the level of the fascia. The fascia was incised transversely and then the rectus muscle was dissected off the fascia and split bluntly in the midline. The peritoneum was then entered bluntly. The bladder flap was created and then a low segment transverse incision was made with a knife on the uterus until the amniotic fluid was encountered. The incision was widened with bandage scissors. A hand was inserted elevating the head and then the body was delivered using the usual maneuvers . The nares and oropharynx were bulb suctioned, and the remainder of the infant was delivered out of the maternal abdomen. The cord was doubly clamped and cut, and the infant handed off to the awaiting trim sawyer and resuscitation team . The placenta was then manually extracted and the interior uterus was cleaned with a dry lap sponge. The uterus was exteriorized, and the incision of the uterus closed with a running interlocking stitch of chromic suture in two layers. The uterus was replaced in the maternal abdomen. The abdomen was cleared of clots. The peritoneum closed with 2 o chromic catgut.The fascia was closed with a running suture of #1 Vicryl suture meeting in the midline. The subcutaneous tissue was made hemostatic with Bovie cautery, and the skin approximated using sophia. The patient tolerated the procedure well. All sponge and instrument counts were correct. She was taken to the recovery room in stable condition. The estimated blood loss was 500 CC. The new born was male with score of 9 in 1 minute and 9 in 5 minutes. The weight of the new born was 2155 gram.. At the end of procedure the patient was transferred to the recovery room in an stable condition. We will watch her there if the blood pressure is high we might transfer her to telemetry Anesthesia Type: spinal Physician Certification I, the undersigned physician, hereby certify that I have discussed the procedure described in this consent form with this patient (or the patient's legal wireless sales representative), including: * The risk and benefits of the procedure; * Any adverse reactions that may reasonably be expected to occur; * Any alternative efficacious methods of treatment which may be medically viable ; * The potential problems that may occur during recuperation; * Potential for blood transfusion and associated risks/benefits; and * Any research or economic interest I may have regarding this treatment. I further certify that the patient/legally responsible person was encouraged to ask question and that all questions were answered. BRITTANI HUBBARD MD Sep 29, 2016 14:44 BRITTANI HUBBARD MD Sep 29, 2016 14:44 Physician Certification I, the undersigned physician, hereby certify that I have discussed the procedure described in this consent form with this patient (or the patient's legal wireless sales representative), including: * The risk and benefits of the procedure; * Any adverse reactions that may reasonably be expected to occur; * Any alternative efficacious methods of treatment which may be medically viable ; * The potential problems that may occur during recuperation; * Potential for blood transfusion and associated risks/benefits; and * Any research or economic interest I may have regarding this treatment. I further certify that the patient/legally responsible person was encouraged to ask question and that all questions were answered. BRITTANI HUBBARD MD Sep 29, 2016 14:44
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
[2016-09-29 17:04] LABS: BASOPHILS % 0.4 % (0.0-2.0); EOSINOPHILS % 0.4 % (0.0-7.0); HEMATOCRIT 36.7 % (37.0-47.0); HEMOGLOBIN 12.1 g/dl (12.0-16.0); LYMPHOCYTES % 23.9 % (15.0-51.0); MEAN PLATELET VOLUME 11.8 fl (7.4-10.4); MONOCYTE # 0.4 10^3/ul (0.3-0.9); MONOCYTES % 4.9 % (0.0-11.0); NEUTROPHIL # 5.7 10^3/ul (1.6-7.5); NEUTROPHILS % 70.2 % (39.0-77.0); PLATELET COUNT 204 10^3/UL (140-415); RED BLOOD COUNT 4.32 10^6/ul (4.20-5.40); WHITE BLOOD COUNT 8.2 10^3/ul (4.8-10.8)
[2016-09-29] MEDS ORDERED: ACETAMINOPHEN 500 MG TAB PO PRN (19:00)
[2016-09-29] MEDS ORDERED: NA PHOSPHATE/BIPHOS 133 ML ENEMA PR PRN (19:00)
[2016-09-29] MEDS ORDERED: LANOLIN 7 GM TUBE TOP PRN (19:00)
[2016-09-29] MEDS ORDERED: METHYLERGONOVINE 0.2 MG TAB PO PRN (19:00)
[2016-09-29] MEDS: OXYTOCIN 30 UNITS/LR 500 ML IV SCH ×2 (21:15→22:52)
[2016-09-30] VITALS (9 sets, daily range): BP systolic 136–171; BP diastolic 83–103; PULSE 65–82; RESP 17–18
[2016-09-30] MEDS: LACTATED RINGER'S 1,000 ML IV SCH ×3 (01:09→08:59)
[2016-09-30] MEDS ORDERED: NIFEdipine 10 MG CAP PO ONE (05:30)
[2016-09-30 06:48] LABS: ADD SCAN DIFF NO
[2016-09-30 07:00] LABS: BASOPHILS % 0.1 % (0.0-2.0); HEMATOCRIT 24.6 % (37.0-47.0); HEMOGLOBIN 8.2 g/dl (12.0-16.0); LYMPHOCYTES # 1.8 10^3/ul (0.8-2.9); LYMPHOCYTES % 13.1 % (15.0-51.0); MEAN CORPUSCULAR HEMOGLOBIN 28.8 pg (29.0-33.0); MEAN CORPUSCULAR HGB CONC 33.3 g/dl (32.0-37.0); MEAN CORPUSCULAR VOLUME 86.3 fl (82.0-101.0); MEAN PLATELET VOLUME 11.6 fl (7.4-10.4); MONOCYTE # 0.9 10^3/ul (0.3-0.9); MONOCYTES % 6.7 % (0.0-11.0); NEUTROPHIL # 10.9 10^3/ul (1.6-7.5); NEUTROPHILS % 79.7 % (39.0-77.0); PLATELET COUNT 175 10^3/UL (140-415); RED BLOOD COUNT 2.85 10^6/ul (4.20-5.40); RED CELL DISTRIBUTION WIDTH 12.9 % (11.5-14.5); WHITE BLOOD COUNT 13.6 10^3/ul (4.8-10.8)
[2016-09-30 08:37] LABS: IRON 68 ug/dl (35-150)
[2016-09-30 08:46] LABS: TOTAL IRON BINDING CAPACITY 384 ug/dl (241-421)
[2016-09-30] MEDS ORDERED: KETOROLAC 30 MG INJ IV PRN (09:15)
--- NOTE | 2016-09-30 09:50 | DELSUM ---
Delivery Summary A-C Datetime Report Generated by CPN: 09/30/2016 09:49 DELIVERY PERSONNEL Switch Technician: Brook Duran MATERNAL INFORMATION Delivery Anesthesia: Spinal Medications in Delivery: SEE ANESTHESIA RECORD Estimated Blood Loss (ml): 600 Placenta Cultured: No Maternal Complications: Other Other Maternal Complications: HYPERTENSION, POSSIBLE IUGR, NO CARE; VAGINAL BLEEDING OF UN KNOWN ORIGIN. RN Comments: PATIENT'S LIBRARIAN: DR. VILLAGOMEZ LABOR SUMMARY EDC: 10/27/2016 00:00 No. Babies in Womb: 1 Attempted: No Labor Anesthesia: None LABOR INFORMATION Reason for Induction: Not Applicable Oxytocin: N/A Group B Beta Strep: Not Done Antibiotics # of Doses: ANCEF, 2GM, IVPB x1 DOSE Antibiotics Time of Last Dose: 09/29/2016 13:30 Steroids Given: None Reason Steroids Not Administered: Not Applicable MEMBRANES Membranes Rupture Method: Artificial Rupture of Membranes: 09/29/2016 13:45 Length of Rupture (hr): 0.02 Amniotic Fluid Color: Clear Amniotic Fluid Amount: Moderate STAGES OF LABOR Stage 3 hr: 0 Stage 3 min: 1 CSECTION DELIVERY Primary Indication: Other Other Primary Indication: HYPERTENSION CSection Urgency: Non Elective CSection Incidence: Primary Labor: No Labor Elective: Nonelective CSection Incision: Lower Uterine Transverse BABY A INFORMATION Infant Delivery Date/Time: 09/29/2016 13:46 Method of Delivery: Born in Route : No : N/A Forceps: N/A Vacuum Extraction: N/A Shoulder Dystocia : N/A SHOULDER DYSTOCIA BABY A Delivery Date/Time: 09/29/2016 13:46 PRESENTATION/POSITION BABY A Presentation: Cephalic Cephalic Presentation: Vertex Breech Presentation: N/A PLACENTA INFORMATION BABY A Placenta Delivery Time : 09/29/2016 13:47 Placenta Method of Delivery: Manual Removal Placenta Status: Delivered SCORES BABY A Heart Rate 1 min: >100 bpm Resp Effort 1 min: Good Cry Reflex Irritability 1 min: Cough/Sneeze/Pulls Away Muscle Tone 1 min: Active Motion Color 1 min: Body [place], Extremit Blue Resuscitation Effort 1 min: Tactile Stimulation SCORE 1 MIN: 9 Heart Rate 5 min: >100 bpm Resp Effort 5 min: Good Cry Reflex Irritability 5 min: Cough/Sneeze/Pulls Away Muscle Tone 5 min: Active Motion Color 5 min: Body [place], Extremit Blue Resuscitation Effort 5 min: Tactile Stimulation SCORE 5 MIN: 9 INFANT INFORMATION BABY A Gestational Age at Delivery: 36.0 Gestational Status: Late - 34- 36.6 Weeks Infant Outcome : Liveborn Condition : Stable Sex: Male IDENTIFICATION/MEDS BABY A ID Band Number: [id number] ID Band Location: Right Leg; Left Arm Sensor Applied: No Vitamin K Given : Not Given Erythromycin Given: Not Given WEIGHT/LENGTH BABY A Birthweight (gm): 2155 Weight (lb): 4 Infant Weight (oz): 12 Infant Length (in): 18.00 Infant Length (cm): 45.72 CORD INFORMATION BABY A No. Cord Vessels: 3 Nuchal Cord : Around Neck x2, Loose Cord Blood Taken: Yes Suction: Mouth; Nose ASSESSMENT BABY A Infant Complications: None Physical Findings at Delivery: Within Normal Limits Infant Respirations: Appears Normal Collections Agent/ALS Called : Yes Infant Care By: FINAL OPERATIONS TECHNICIAN, NICU LICENSED CUSTOMS BROKER, PATIENT'S LIBRARIAN Transferred To: NICU
--- NOTE | 2016-09-30 10:02 | PN ---
Date/Time of Note Date/Time of Note DATE: 09/30/16 TIME: 09:49 OB Subjective Subjective Subjective Patient without complaints. . Would like to monitor BPs after pain meds given to determine if she needs BP medication. OB Objective Objective Objective Gen: NAD Abd: I-C/D/I OB Assessment/Plan Other Assessment: POD 1 s/p for severe preeclampsia Other plan: Continue routine postop care. Administer pain meds. Monitor BPs to determine if patient needs antihypertensive meds. GEORGE LIMA Sep 30, 2016 10:02
--- NOTE | 2016-09-30 16:42 | PN ---
DATE: 09/30/2016 TIME: 1545 SUBJECTIVE DATA: The patient's blood pressure has been trending down without any antihypertensives. The patient is status post section. Complains of insomnia. Denies any chest pain or palpitations. OBJECTIVE DATA: VITAL SIGNS: Pulse rate 74, respiratory rate 18, latest blood pressure not recorded in electronic medical records. GENERAL: This is a 31-year-old -[place]aj[place] female lying in bed in no apparent distress. HEENT: Head normocephalic and atraumatic. Eyes: Anicteric sclerae. Conjunctivae clear. ENT: Nasal septum is midline. Oral mucosa is moist. NECK: Supple. JVD noticed. RESPIRATORY: Bilaterally clear to auscultation. No adventitious breath sounds heard. No use of accessory muscles of respiration. CARDIAC: Regular rate and rhythm. No murmurs heard. ABDOMEN: Lower abdominal surgical dressing. GENITOURINARY: Deferred. EXTREMITIES: No cyanosis, no clubbing. Bilateral trace pretibial edema. Peripheral pulses palpable. NEUROLOGIC: The patient is awake, alert and oriented. Cranial nerves are grossly intact. LABORATORY AND DIAGNOSTIC DATA: WBC 13.6, hemoglobin 8.2, hematocrit 24.6, platelet count 175. Sodium 135, potassium 4.0, chloride 103, carbon dioxide 20 , anion gap 11, BUN 11, creatinine 0.67, glucose 76, uric acid 5.1, calcium 8.6. ASSESSMENT AND PLAN: 1. -induced hypertension status post delivery of the baby by C- section. The patient's blood pressure is improving without any antihypertensives. If the patient's blood pressure is trending down, and if the systolic blood pressure reading stays less than 160 mmHg, the patient may be monitored without any antihypertensives. I am hesitant to add any routine antihypertensives since the patient is . Nevertheless, the patient 's blood pressure is normalizing. 2. Intrauterine . Status post . Management as per OB. 3. Normocytic anemia. No evidence of any iron deficiency other than low iron saturation. Continue to monitor H and H closely. Transfusion will be deferred to MATERIAL REQUIREMENTS WORKER. 4. Fluid, electrolytes, and nutrition. Diet as per ACCESS REP. 5. Deep venous thrombosis prophylaxis. Ambulation and bilateral sequential compression devices. RECOMMENDATIONS: Continue to monitor the patient off antihypertensives. Thank you for the consult. Case discussed with Dr. Winn. RICHARD WINN MD, AM/SKYLER Conf#: [id number] DID#: [id number] MTDJenifer
--- NOTE | 2016-09-30 16:48 | DELSUM ---
Delivery Summary A-C Datetime Report Generated by CPN: 09/30/2016 16:48 DELIVERY PERSONNEL Embedded Software Development Engineer: Brook Duran MATERNAL INFORMATION Delivery Anesthesia: Spinal Medications in Delivery: SEE ANESTHESIA RECORD Estimated Blood Loss (ml): 600 Placenta Cultured: No Maternal Complications: Other Other Maternal Complications: HYPERTENSION, POSSIBLE IUGR, NO CARE; VAGINAL BLEEDING OF UN KNOWN ORIGIN. RN Comments: DIRECTOR INBOUND SALES: DR. VILLAGOMEZ LABOR SUMMARY EDC: 10/27/2016 00:00 No. Babies in Womb: 1 Attempted: No Labor Anesthesia: None LABOR INFORMATION Reason for Induction: Not Applicable Oxytocin: N/A Group B Beta Strep: Not Done Antibiotics # of Doses: ANCEF, 2GM, IVPB x1 DOSE Antibiotics Time of Last Dose: 09/29/2016 13:30 Steroids Given: None Reason Steroids Not Administered: Not Applicable MEMBRANES Membranes Rupture Method: Artificial Rupture of Membranes: 09/29/2016 13:45 Length of Rupture (hr): 0.02 Amniotic Fluid Color: Clear Amniotic Fluid Amount: Moderate STAGES OF LABOR Stage 3 hr: 0 Stage 3 min: 1 CSECTION DELIVERY Primary Indication: Other Other Primary Indication: HYPERTENSION CSection Urgency: Non Elective CSection Incidence: Primary Labor: No Labor Elective: Nonelective CSection Incision: Lower Uterine Transverse BABY A INFORMATION Infant Delivery Date/Time: 09/29/2016 13:46 Method of Delivery: Born in Route : No : N/A Forceps: N/A Vacuum Extraction: N/A Shoulder Dystocia : N/A SHOULDER DYSTOCIA BABY A Delivery Date/Time: 09/29/2016 13:46 PRESENTATION/POSITION BABY A Presentation: Cephalic Cephalic Presentation: Vertex Breech Presentation: N/A PLACENTA INFORMATION BABY A Placenta Delivery Time : 09/29/2016 13:47 Placenta Method of Delivery: Manual Removal Placenta Status: Delivered SCORES BABY A Heart Rate 1 min: >100 bpm Resp Effort 1 min: Good Cry Reflex Irritability 1 min: Cough/Sneeze/Pulls Away Muscle Tone 1 min: Active Motion Color 1 min: Body [place], Extremit Blue Resuscitation Effort 1 min: Tactile Stimulation SCORE 1 MIN: 9 Heart Rate 5 min: >100 bpm Resp Effort 5 min: Good Cry Reflex Irritability 5 min: Cough/Sneeze/Pulls Away Muscle Tone 5 min: Active Motion Color 5 min: Body [place], Extremit Blue Resuscitation Effort 5 min: Tactile Stimulation SCORE 5 MIN: 9 INFANT INFORMATION BABY A Gestational Age at Delivery: 36.0 Gestational Status: Late - 34- 36.6 Weeks Infant Outcome : Liveborn Condition : Stable Sex: Male IDENTIFICATION/MEDS BABY A ID Band Number: [id number] ID Band Location: Right Leg; Left Arm Sensor Applied: No Vitamin K Given : Not Given Erythromycin Given: Not Given WEIGHT/LENGTH BABY A Birthweight (gm): 2155 Weight (lb): 4 Infant Weight (oz): 12 Infant Length (in): 18.00 Infant Length (cm): 45.72 CORD INFORMATION BABY A No. Cord Vessels: 3 Nuchal Cord : Around Neck x2, Loose Cord Blood Taken: Yes Suction: Mouth; Nose ASSESSMENT BABY A Infant Complications: None Physical Findings at Delivery: Within Normal Limits Infant Respirations: Appears Normal Architect/ALS Called : Yes Infant Care By: SOFTWARE ARCHITECT, NICU SECURITY INSTALLER, DIRECTOR INBOUND SALES Transferred To: NICU
[2016-09-30] MEDS: IBUPROFEN 600 MG TAB PO PRN (17:43)
[2016-10-01] VITALS (7 sets, daily range): BP systolic 160–187; BP diastolic 89–104; PULSE 73–89; RESP 17–19
[2016-10-01] MEDS: OXYCODONE/ACETAMINOPHEN (5/325) TAB PO PRN ×5 (00:19→20:19)
[2016-10-01] MEDS: IBUPROFEN 600 MG TAB PO PRN ×2 (06:45→14:33)
--- NOTE | 2016-10-01 08:42 | PN ---
Date/Time of Note Date/Time of Note DATE: 10/01/16 TIME: 08:41 OB Subjective Subjective Subjective Patient is postop day 2 status post with elevated blood pressures She is complaining of incisional pain, she has no complaints of blurry vision or headache She reports no chest pain Patient states that she is allergic to all blood pressure medications and she refuses to take any blood pressure medication Patient is also refusing to take magnesium sulfate OB Objective HEENT: WNL Heart: Rhythm Normal Lungs: Clear Abdomen: WNL (Incision clean dry and intact) Extremities: Normal OB Assessment/Plan Other Assessment: Status post primary for preeclampsia Other plan: CBC and CMP today Consultation requested to be done by the hospitalist for evaluation and management of hypertension We will continue with pain meds Patient encouraged to ambulate SAFIA DUGAN MD Oct 01, 2016 08:42
--- NOTE | 2016-10-01 08:49 | CONS ---
Date/Time of Note Date/Time of Note DATE: 10/01/16 TIME: 08:44 Assessment/Plan Assessment/Plan Problems: (1) Hypertension Status: Acute Comment: This young lady may have a secondary cause of her hypertension however at this time she is declining intervention or evaluation. She is breast -feeding the and as such this would minimally limit are available options for her. If she changes her mind and will allow this then my initial recommendation will be to use low-dose atenolol 25 mg a day in combination with low-dose hydrochlorothiazide at 12.5 mg a day. If further therapeutics are needed after that then I would use doxazosin starting 1 mg nightly and going to 2 mg nightly than 4 mg nightly titrated as needed. Please not have had an extensive discussion with the patient and she is mentally competent and very clearly understands the risks that she is taking and she still declines therapeutics. I have discussed this with the nursing staff as well. Qualifiers: Hypertension type: essential hypertension Qualified Code: I10 - Essential hypertension Consultation Date/Type/Reason Admit Date/Time Sep 28, 2016 at 11:16 Initial Consult Date 09/29/2016 Type of Consultation: Internal medicine Reason for Consultation Post elevation of blood pressure. Referring Provider: KRISTOFER PEPPER MD 24 HR Interval Summary Free Text/Dictation This young lady reports that she is quite familiar with the blood pressure medications and declines to take them. She informs that she has had reactions to multiple other blood pressure medications including but not limited to labetalol nifedipine hydralazine and clonidine. She reports that she has elevation of blood pressure today because she just had a argument with her ex- prior to having her blood pressure taken and is having pain and is tired. She flatly refuses any type of intervention. She is aware of all possible complications related to elevated blood pressure. Constitutional: no complaints (Denies fevers chills or sweats) Detailed Summary Respiratory: no complaints (Denies shortness of breath) Cardiovascular: no complaints (Denies chest pain or palpitation) Neurologic: no complaints Endocrine: no complaints (Please note her symptomatology is not consistent with pheochromocytoma) Exam/Review of Systems Vital Signs Vitals Vital Signs Date Time Temp Pulse Resp B/P Pulse Ox O2 Delivery O2 Flow Rate FiO2 10/01/16 07:15 74 18 173/104 10/01/16 04:48 98.1 Room Air 09/28/16 09:18 99 Intake and Output 09/30/16 09/30/16 10/01/16 15:00 23:00 07:00 Intake Total 935 ml Output Total 1100 ml 900 ml Balance -165 ml -900 ml Exam Constitutional: alert, oriented Respiratory: clear to auscultation, normal air movement Cardiovascular: nl pulses, regular rate and rhythm Neurological: BOARDING HOUSE COOK II-XII intact, nl mental status, nl speech, nl strength Results Result Diagram: 09/30/16 0542 09/28/16 1010 Medications Medications Current Medications Methylergonovine Maleate (Methergine) 0.2 mg Q6H PRN PO VAGINAL BLEEDING; Start 09/29/16 at 19:00 Oxycodone/ Acetaminophen (Percocet (5/ 325)) 1 tab Q4H PRN PO PAIN LEVEL 4-6 Last administered on 10/01/16t 07:07; Admin Dose 1 TAB; Start 09/29/16 at 19:00 Oxycodone/ Acetaminophen (Percocet (5/ 325)) 2 tab Q4H PRN PO PAIN LEVEL 7-10; Start 09/29/16 at 19:00 Simethicone (Mylicon) 160 mg Q8H PRN PO DISTENSION/GAS/BLOATING; Start at 19:00 Sodium Biphosphate/ Sodium Phosphate (Fleet Enema) 133 ml DAILY PRN [place] CONSTIPATION; Start 09/29/16 at 19:00 Diphtheria/ Tetanus/Acell Pertussis 0.5 ml 0.5 ml ONCE ONCE IM* ; Start at 09:00; Stop 10/02/16 at 09:01 Oxytocin/Lactated Ringer's 500 ml @ 0 mls/hr ONCE PRN IV For Hemorrhage Management; Start 09/29/16 at 19:00 Methylergonovine Maleate (Methergine) 0.2 mg ONCE PRN IM VAGINAL BLEEDING; Start 09/29/16 at 19:00 Carboprost Tromethamine (Hemabate) 250 mcg ONCE PRN IM VAGINAL BLEEDING; Start 09/29/16 at 19:00 Misoprostol (Cytotec) 1,000 mcg ONCE PRN [place] VAGINAL BLEEDING; Start 09/29/16 at 19:00 Ibuprofen (Motrin) 600 mg Q6H PRN PO PAIN Last administered on 10/01/16 06:45 ; Admin Dose 600 MG; Start 09/29/16 at 19:00 Acetaminophen (Tylenol Tab) 500 mg Q6H PRN PO PAIN AND OR ELEVATED TEMP; Start 09/29/16 at 19:00 Ketorolac Tromethamine (Toradol) 30 mg Q6H PRN IV PAIN Last administered on 09:29; Admin Dose 30 MG; Start 09/30/16 at 09:15; Stop 10/03/16 at 09:14 EMILE WEST MD Oct 01, 2016 08:49
[2016-10-01] MEDS: ATENOLOL 25 MG TAB PO SCH (09:00)
[2016-10-01 10:25] LABS: ADD SCAN DIFF NO
[2016-10-01 10:35] LABS: BASOPHILS % 0.3 % (0.0-2.0); EOSINOPHILS # 0.1 10^3/ul (0.0-0.5); EOSINOPHILS % 0.5 % (0.0-7.0); HEMATOCRIT 22.8 % (37.0-47.0); HEMOGLOBIN 7.5 g/dl (12.0-16.0); LYMPHOCYTES # 2.7 10^3/ul (0.8-2.9); LYMPHOCYTES % 24.1 % (15.0-51.0); MEAN CORPUSCULAR HEMOGLOBIN 28.8 pg (29.0-33.0); MEAN CORPUSCULAR HGB CONC 32.9 g/dl (32.0-37.0); MEAN CORPUSCULAR VOLUME 87.7 fl (82.0-101.0); MEAN PLATELET VOLUME 11.3 fl (7.4-10.4); MONOCYTE # 0.8 10^3/ul (0.3-0.9); MONOCYTES % 6.9 % (0.0-11.0); NEUTROPHIL # 7.5 10^3/ul (1.6-7.5); NEUTROPHILS % 67.8 % (39.0-77.0); PLATELET COUNT 179 10^3/UL (140-415); RED CELL DISTRIBUTION WIDTH 13.3 % (11.5-14.5); WHITE BLOOD COUNT 11.1 10^3/ul (4.8-10.8)
[2016-10-01 10:37] LABS: ALBUMIN 2.4 g/dl (3.3-4.9)
[2016-10-01 10:38] LABS: POTASSIUM 3.9 mmol/L (3.5-5.1)
[2016-10-01 10:40] LABS: ALBUMIN/GLOBULIN RATIO 0.82; BILIRUBIN,INDIRECT 0.2 mg/dl (0-1.1); BILIRUBIN,TOTAL 0.2 mg/dl (0.2-1.3); CREATININE 0.7 mg/dl (0.44-1.00); TOTAL PROTEIN 5.3 g/dl (6.1-8.1)
[2016-10-01 10:41] LABS: CALCIUM 8.1 mg/dl (8.4-10.2)
[2016-10-01 13:09] LABS: RUBELLA ANTIBODY - IGG 1.56 index
[2016-10-01] MEDS: FERROUS SULFATE (EC) 325 MG TAB PO SCH (21:00)
[2016-10-02] VITALS (14 sets, daily range): BP systolic 130–230; BP diastolic 91–114; PULSE 64–119; RESP 16–20
[2016-10-02] MEDS: IBUPROFEN 600 MG TAB PO PRN ×2 (00:52→05:55)
[2016-10-02] MEDS: OXYCODONE/ACETAMINOPHEN (5/325) TAB PO PRN ×3 (05:17→15:51)
[2016-10-02] MEDS ORDERED: ATENOLOL 25 MG TAB PO SCH ×4 (05:30→10:30)
[2016-10-02] MEDS ORDERED: ATENOLOL 25 MG TAB PO ONE (09:00)
[2016-10-02] MEDS ORDERED: DIPHTH/TET/ACEL PERTUSS (ADULT) 0.5 ML VIAL IM* ONE (09:00)
[2016-10-02] MEDS: ATENOLOL 25 MG TAB PO SCH (09:00)
[2016-10-02] MEDS: FERROUS SULFATE (EC) 325 MG TAB PO SCH ×2 (09:00→22:55)
--- NOTE | 2016-10-02 11:23 | PN ---
Date/Time of Note Date/Time of Note DATE: 10/02/16 TIME: 11:21 Assessment/Plan VTE Prophylaxis VTE Prophylaxis Intervention: other Lines/Catheters IV Catheter Type (from Nrsg): Saline Lock Assessment/Plan Problems: (1) Hypertension Status: Acute Comment: This patient undoubtedly has essential hypertension. She has moved slightly in her position to allow low-dose atenolol at half of what I had ordered. Should frankly do best if we gave her the low-dose atenolol with low- dose hydralazine I would bring her pressure down to the point where I believe my colleagues would be comfortable discharging her. She presently refuses hydralazine and is only willing to go with what we have already started. I suspect by tomorrow she will amend her position slightly. The meantime she is having no endorgan effects or toxicities to the blood pressure or the blood pressure medications Qualifiers: Hypertension type: essential hypertension Qualified Code: I10 - Essential hypertension Subjective 24 Hr Interval Summary Free Text/Dictation Patient reports she is willing to take the blood pressure medicine as she was told they would not discharge her unless her blood pressure came down. She declines to consider any alteration when she is already agreed to Constitutional: no complaints Eyes: no complaints ENT: no complaints Respiratory: no complaints Cardiovascular: no complaints Neurologic: no complaints Exam/Review of Systems Vital Signs Vitals Vital Signs Date Time Temp Pulse Resp B/P Pulse Ox O2 Delivery O2 Flow Rate FiO2 10/02/16 08:35 98.0 64 17 193/104 Room Air 09/28/16 09:18 99 Exam Constitutional: alert, oriented Respiratory: clear to auscultation, normal air movement Cardiovascular: nl pulses, regular rate and rhythm Neurological: AUDIT ASSOCIATE II-XII intact, nl mental status, nl speech, nl strength Results Result Diagram: 10/01/1645 10/01/1645 Medications Medications Current Medications Methylergonovine Maleate (Methergine) 0.2 mg Q6H PRN PO VAGINAL BLEEDING; Start 09/29/16 at 19:00 Oxycodone/ Acetaminophen (Percocet (5/ 325)) 1 tab Q4H PRN PO PAIN LEVEL 4-6 Last administered on 10/01/16t 07:07; Admin Dose 1 TAB; Start 09/29/16 at 19:00 Oxycodone/ Acetaminophen (Percocet (5/ 325)) 2 tab Q4H PRN PO PAIN LEVEL 7-10 Last administered on 10/02/16 10:45; Admin Dose 2 TAB; Start 09/29/16 at 19:00 Simethicone (Mylicon) 160 mg Q8H PRN PO DISTENSION/GAS/BLOATING; Start at 19:00 Sodium Biphosphate/ Sodium Phosphate 133 ml 133 ml DAILY PRN [place] CONSTIPATION; Start 09/29/16 at 19:00 Oxytocin/Lactated Ringer's 500 ml @ 0 mls/hr ONCE PRN IV For Hemorrhage Management; Start 09/29/16 at 19:00 Methylergonovine Maleate (Methergine) 0.2 mg ONCE PRN IM VAGINAL BLEEDING; Start 09/29/16 at 19:00 Carboprost Tromethamine (Hemabate) 250 mcg ONCE PRN IM VAGINAL BLEEDING; Start 09/29/16 at 19:00 Misoprostol (Cytotec) 1,000 mcg ONCE PRN [place] VAGINAL BLEEDING; Start 09/29/16 at 19:00 Ibuprofen (Motrin) 600 mg Q6H PRN PO PAIN Last administered on 10/02/16 05:55 ; Admin Dose 600 MG; Start 09/29/16 at 19:00 Acetaminophen (Tylenol Tab) 500 mg Q6H PRN PO PAIN AND OR ELEVATED TEMP; Start 09/29/16 at 19:00 Ketorolac Tromethamine (Toradol) 30 mg Q6H PRN IV PAIN Last administered on 09:29; Admin Dose 30 MG; Start 09/30/16 at 09:15; Stop 10/03/16 at 09:14 Ferrous Sulfate (Ferrous Sulfate (Ec)) 325 mg BID PO ; Start 10/01/16 at 21:00 Atenolol (Tenormin) 25 mg DAILY PO ; Start 10/03/16 at 09:00 EMILE WEST MD Oct 02, 2016 11:23
--- NOTE | 2016-10-02 17:33 | QN ---
Documentation Comment POD#3 is stable afebrile tolerates diet No VB +BM +voids BP 190-1200/90-110 No Headache feels dizzy Recommed: Mg 2gr/hr Hydralazine PIH panel Transfer to telemetry ,was called and he gave the orders to Nurses HORACIO CROW M.D. Oct 02, 2016 17:33
[2016-10-02] MEDS: MAGNESIUM SULFATE 20 GM/500 ML 500 ML IV SCH (17:43)
[2016-10-02 18:10] LABS: ADD SCAN DIFF NO
[2016-10-02 18:12] LABS: BASOPHILS % 0.3 % (0.0-2.0); EOSINOPHILS # 0.1 10^3/ul (0.0-0.5); EOSINOPHILS % 0.7 % (0.0-7.0); HEMATOCRIT 24.6 % (37.0-47.0); HEMOGLOBIN 8.1 g/dl (12.0-16.0); LYMPHOCYTES # 2.5 10^3/ul (0.8-2.9); LYMPHOCYTES % 25.3 % (15.0-51.0); MEAN CORPUSCULAR HEMOGLOBIN 28.8 pg (29.0-33.0); MEAN CORPUSCULAR HGB CONC 32.9 g/dl (32.0-37.0); MEAN CORPUSCULAR VOLUME 87.5 fl (82.0-101.0); MEAN PLATELET VOLUME 10.4 fl (7.4-10.4); MONOCYTE # 0.5 10^3/ul (0.3-0.9); MONOCYTES % 5.1 % (0.0-11.0); NEUTROPHIL # 6.8 10^3/ul (1.6-7.5); NUCLEATED RED BLOOD CELLS% 0.2 /100WBC (0.0-0.0); PLATELET COUNT 230 10^3/UL (140-415); RED BLOOD COUNT 2.81 10^6/ul (4.20-5.40); RED CELL DISTRIBUTION WIDTH 13.2 % (11.5-14.5)
[2016-10-02 18:24] LABS: INR 0.99; PROTIME 13.1 Sec (12.2-14.2)
[2016-10-02 18:25] LABS: ALBUMIN 2.9 g/dl (3.3-4.9); PARTIAL THROMBOPLASTIN TIME 31.2 Sec (25.0-35.0)
[2016-10-02 18:26] LABS: POTASSIUM 3.3 mmol/L (3.5-5.1)
[2016-10-02 18:28] LABS: ALBUMIN/GLOBULIN RATIO 0.85; BILIRUBIN,INDIRECT 0.2 mg/dl (0-1.1); BILIRUBIN,TOTAL 0.2 mg/dl (0.2-1.3); CREATININE 0.69 mg/dl (0.44-1.00); TOTAL PROTEIN 6.3 g/dl (6.1-8.1); URIC ACID 5.1 mg/dl (3.1-7.9)
[2016-10-02 18:29] LABS: CALCIUM 8.5 mg/dl (8.4-10.2)
[2016-10-02 18:50] LABS: FIBRIN SPLIT PRODUCT <10 ug/ml (<10)
[2016-10-02] MEDS: LACTATED RINGER'S 1,000 ML IV SCH (19:31)
[2016-10-02 20:07] LABS: ADD UMIC NO; URINE BILIRUBIN (Dip) NEGATIVE (NEGATIVE); URINE BLOOD (Dip) NEGATIVE (NEGATIVE); URINE COLOR LT. YELLOW (YELLOW); URINE GLUCOSE (Dip) NEGATIVE (NEGATIVE); URINE KETONES (Dip) NEGATIVE (NEGATIVE); URINE LEUKOCYTE ESTERASE (Dip) NEGATIVE (NEGATIVE); URINE NITRITE (Dip) NEGATIVE (NEGATIVE); URINE TOTAL PROTEIN (Dip) NEGATIVE (NEGATIVE); URINE UROBILINOGEN (Dip) 0.2 E.U./dL (0.1-1.0)
[2016-10-03] VITALS (14 sets, daily range): BP systolic 140–174; BP diastolic 65–118; PULSE 71–90; RESP 16–20
[2016-10-03] MEDS: MAGNESIUM SULFATE 20 GM/500 ML 500 ML IV SCH ×3 (03:30→21:19)
[2016-10-03] MEDS: LACTATED RINGER'S 1,000 ML IV SCH (08:06)
[2016-10-03] MEDS: FERROUS SULFATE (EC) 325 MG TAB PO SCH ×2 (08:57→20:33)
[2016-10-03] MEDS: IBUPROFEN 600 MG TAB PO PRN (08:58)
[2016-10-03] MEDS ORDERED: ATENOLOL 25 MG TAB PO SCH (09:00)
--- NOTE | 2016-10-03 09:30 | PN ---
Date/Time of Note Date/Time of Note DATE: 10/03/16 TIME: 09:27 OB Subjective Subjective Subjective POD #4 s/p primary c/section Patient still with elevated blood pressures on telemetry floor She is currently on magnesium sulfate and blood pressure meds Patient is complaining of migraine headache and some shortness of breath and chest pain OB Objective Objective Objective Patient tolerating regular diet Barrera is in place for strict I's and O's while on magnesium sulfate Adequately voiding urine Positive flatus, positive BM Last magnesium level 3.9 HEENT: WNL Heart: Rhythm Normal Abdomen: WNL (Incision clean dry and intact) Extremities: Normal Reflexes: Normal OB Assessment/Plan Other Assessment: Postop day #4 status post primary Patient currently with elevated blood pressures Other plan: On magnesium sulfate and blood pressure meds Magnesium sulfate is to be discontinued at 6 PM tonight We will DC Barrera at that time Encouraged to ambulate Continue with pain meds Patient is currently under the care of hospitalist and space control agent for the management of hypertension and shortness of breath and chest pain Possible transfer back to floor once cleared by hospitalist and space control agent SAFIA DUGAN MD Oct 03, 2016 09:30
--- NOTE | 2016-10-03 10:14 | PN ---
Date/Time of Note Date/Time of Note DATE: 10/03/16 TIME: 10:10 Assessment/Plan VTE Prophylaxis VTE Prophylaxis Intervention: SCD's Lines/Catheters IV C[facility]ter Type (from [facility] Peripheral IV Urinary Cath still in place: No Assessment/Plan Chief Complaint/Hosp Course Assessment and plan 1. Essential hypertension Possibly -induced hypertension, with noncompliant with medical management Patient has been refusing medications such as atenolol and other blood pressure medication and stating when her blood pressure is elevated she feels better. She has been refusing some of the blood pressure medications due to the above although she is requesting that her blood pressure to be controlled before discharge. I had a long conversation with the patient regarding the importance of compliance with medication. At this time I will start the patient on hydralazine 25 mg p.o. [address] also [address] the patient in clonidine as needed 2. 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 Disposition: Continue to monitor blood pressure Discharge as per TUMBLER OPERATOR team when systolic blood pressure is less than 135 Problems: Subjective 24 Hr Interval Summary Free Text/Dictation Patient complains of having minor headache She denies of any nausea, vomiting or diarrhea She is able to tolerate her oral intake without any difficulty Denies of any palpitation although does complain having generalized body ache Exam/Review of Systems Vital Signs Vitals Vital Signs Date Time Temp Pulse Resp B/P Pulse Ox O2 Delivery O2 Flow Rate FiO2 10/03/16 08:00 81 10/03/16 07:44 98.0 20 158/91 95 10/03/16 02:24 Room Air Exam General: The patient is well-developed, Not in acute distress. HEENT: Atraumatic, normocephalic. The pupils are equal and round . Neck: Supple with full range of motion. Chest: Normal expansion of the thorax during inspiration Lungs: Clear to auscultation bilaterally Heart: Normal S1-S2, Regular rhythm and rate. Abdomen: Soft , nontender, nondistended , bowel sounds are present. Extremities: Normal to inspection, no edema no cyanosis Neurologic: Normal mental status,The patient is awake, alert and oriented . Results Result Diagram: 10/02/16 1759 10/02/16 1759 Results 24 hrs Laboratory Tests Test 10/02/16 12:55 10/02/16 17:59 10/02/16 19:10 10/03/16 02:25 Hepatitis C Antibody NEGATIVE White Blood Count 10.0 Red Blood Count 2.81 L Hemoglobin 8.1 L Hematocrit 24.6 L Mean Corpuscular Volume 87.5 Mean Corpuscular Hemoglobin 28.8 L Mean Corpuscular Hemoglobin Concent 32.9 Red Cell Distribution Width 13.2 Platelet Count 230 # Mean Platelet Volume 10.4 Neutrophils % 68.0 Lymphocytes % 25.3 Monocytes % 5.1 Eosinophils % 0.7 Basophils % 0.3 Nucleated Red Blood Cells % 0.2 H Neutrophils # 6.8 Lymphocytes # 2.5 Monocytes # 0.5 Eosinophils # 0.1 Basophils # 0.0 Nucleated Red Blood Cells # 0.0 Prothrombin Time 13.1 Prothrombin Time Ratio 1.0 INR International Normalized Ratio 0.99 Activated Partial Thromboplast Time 31.2 Fibrinogen 594.0 #H Plasma Fibrin Degradation Products <10 Sodium Level 137 Potassium Level 3.3 L Chloride Level 100 Carbon Dioxide Level 28 Anion Gap 12 Blood Urea Nitrogen 8 Creatinine 0.69 Glucose Level 112 Uric Acid 5.1 Calcium Level 8.5 Total Bilirubin 0.2 Direct Bilirubin 0.00 Indirect Bilirubin 0.2 Aspartate Amino Transf (AST/SGOT) 28 Alanine Aminotransferase (ALT/SGPT) 23 Alkaline Phosphatase 174 H Total Protein 6.3 # Albumin 2.9 L Globulin 3.40 H Albumin/Globulin Ratio 0.85 Urine Color LT. YELLOW Urine Clarity CLEAR Urine pH 7.0 Urine Specific [place] <=1.005 L Urine Ketones NEGATIVE Urine Nitrite NEGATIVE Urine Bilirubin NEGATIVE Urine Urobilinogen 0.2 E.U./dL Urine Leukocyte Esterase NEGATIVE Urine Hemoglobin NEGATIVE Urine Glucose NEGATIVE Urine Total Protein NEGATIVE Magnesium Level 5.0 H Test 10/03/16 05:57 Magnesium Level 3.9 H Medications Medications Current Medications Methylergonovine Maleate (Methergine) 0.2 mg Q6H PRN PO VAGINAL BLEEDING; Start 09/29/16 at 19:00 Oxycodone/ Acetaminophen (Percocet (5/ 325)) 1 tab Q4H PRN PO PAIN LEVEL 4-6 Last administered on 10/01/16 07:07; Admin Dose 1 TAB; Start 09/29/16 at 19:00 Oxycodone/ Acetaminophen (Percocet (5/ 325)) 2 tab Q4H PRN PO PAIN LEVEL 7-10 Last administered on 10/02/16 15:51; Admin Dose 2 TAB; Start 09/29/16 at 19:00 Simethicone (Mylicon) 160 mg Q8H PRN PO DISTENSION/GAS/BLOATING; Start at 19:00 Sodium Biphosphate/ Sodium Phosphate 133 ml 133 ml DAILY PRN [place] CONSTIPATION; Start 09/29/16 at 19:00 Oxytocin/Lactated Ringer's 500 ml @ 0 mls/hr ONCE PRN IV For Hemorrhage Management; Start 09/29/16 at 19:00 Methylergonovine Maleate (Methergine) 0.2 mg ONCE PRN IM VAGINAL BLEEDING; Start 09/29/16 at 19:00 Carboprost Tromethamine (Hemabate) 250 mcg ONCE PRN IM VAGINAL BLEEDING; Start 09/29/16 at 19:00 Misoprostol (Cytotec) 1,000 mcg ONCE PRN [place] VAGINAL BLEEDING; Start 09/29/16 at 19:00 Ibuprofen (Motrin) 600 mg Q6H PRN PO PAIN Last administered on 10/03/16 08:58 ; Admin Dose 600 MG; Start 09/29/16 at 19:00 Acetaminophen (Tylenol Tab) 500 mg Q6H PRN PO PAIN AND OR ELEVATED TEMP; Start 09/29/16 at 19:00 Ferrous Sulfate 325 mg 325 mg BID PO Last administered on 10/03/16 08:57; Admin Dose 325 MG; Start 10/01/16 at 21:00 Magnesium Sulfate 500 ml @ 50 mls/hr Q10H IV Last administered on 10/03/16 08 :54; Admin Dose 50 MLS/HR; Start 10/02/16 at 17:30 Lactated Ringer's (Lr) 1,000 ml @ 75 mls/hr [id number] IV Last administered on 08:06; Admin Dose 75 MLS/HR; Start 10/02/16 at 17:30 Clonidine (Catapres) 0.1 mg TID PO Last administered on 10/03/16 08:58; Admin Dose 0.1 MG; Start 10/02/16 at 21:00 JOHNATHON REY MD Oct 03, 2016 10:14
--- NOTE | 2016-10-03 13:46 | CONS ---
DATE OF ADMISSION: 09/28/2016 DATE OF CONSULTATION: 10/03/2016 TYPE OF CONSULTATION: Cardiology. REASON FOR CONSULTATION: Hypertension, uncontrolled. REQUESTING PHYSICIAN: Dr. Rey from the hospitalist service. HISTORY OF PRESENT ILLNESS: Ms. Ontiveros is a 32-year-old female with a history of -induc ed hypertension, who is status post delivery of her 6th child after 8 pregnancies, 1 ectop ic and 1 spontaneous , who has been admitted to the telemetry floor with uncontrol led systolic blood pressures and had difficulty taking medications. Stating that she does not tolera te many medications, causing her to have headaches, funny feelings in her heart and nausea and vomit ing. Most recently the patient has been placed on hydralazine which she states is giving her a head ache and p.r.n. clonidine and continues to have uncontrolled blood pressures in the 150s and the 140 s. The patient at this time denies chest pain, shortness of breath. Does have headache. PAST MEDICAL HISTORY: As above in HPI. MEDICATIONS CURRENTLY IN HOSPITAL: 1. Hydralazine 25 mg p.o. t.i.d. 2. Clonidine 0.1 q.6h. 3. Magnesium sulfate. 4. Ferrous sulfate 25 mg b.i.d. 5. Methergine. 6. Percocet p.r.n. 7. Mylicon 8. Oxytocin. 9. Motrin p.r.n. 10. Tylenol p.r.n. ALLERGIES: 1. TYLENOL. 2. ASPIRIN. 3. LABETALOL. SOCIAL HISTORY: No current tobacco, ETOH or illicit drug use. FAMILY HISTORY: No history of sudden cardiac or early CAD. REVIEW OF SYSTEMS: As above in HPI. CONSTITUTIONAL: No fevers, chills. PULMONARY: No current shortness of breath. CARDIOVASCULAR: No current chest pain. GASTROINTESTINAL: Positive for vomiting. GENITOURINARY: No hematuria. MUSCULOSKELETAL: Degenerative joint disease. PSYCHIATRIC: The patient denies depression. NEUROLOGIC: No documented history of CVA. PHYSICAL EXAMINATION VITAL SIGNS: Temperature 97.7, blood pressure most recently 140/94, pulse 77, respiratory rate 20, saturating 98%. GENERAL: The patient is alert, awake, complaining of headache. NECK: JVP approximately 8 to 9 cm water. CHEST: Fair air movement throughout. HEART: Regular rate and rhythm. S1, S2, I/ systolic murmur, nondisplaced PMI. ABDOMEN: Positive bowel sounds, soft. EXTREMITIES: No edema, 1+ pulses bilaterally, posterior tibial. LABORATORY DATA: As above in HPI. Most recently from today, white count of 10.0, hemoglobin 8.1, p latelet count 230. Sodium 137, potassium 3.3, creatinine 0.6, BUN 8, AST 20, ALT 23, INR of 0.99, U A negative. IMAGING STUDIES: No further imaging studies for my review at this time. ELECTROCARDIOGRAM: Dated October 02 reveals normal sinus rhythm, rate of 82, normal axis, normal in tervals, with isolated Q in lead III. IMPRESSION: 1. Hypertension, likely -induced. 2. Abnormal electrocardiogram with inferior T-wave flattening to biphasic T-wave abnormalities. 3. Status post delivery. 4. Systolic murmur. RECOMMENDATIONS: 1. At this time, would maintain the patient on telemetry monitoring to follow rhythm and rate contr ol closely as patient states with these medications she feels funny feelings in her heart, so we bryan l assess for any possible cardiac arrhythmias that are being induced. 2. At this time, patient is stating that she is having side effect, hydralazine causes headache and thus will start the patient on low dose Procardia and follow her blood pressure and symptoms closel y. 3. Continue all other supportive medical care at this time. 4. Would check a troponin x1 ____ abnormalities chronic in nature and will check a 2-D echo to asse ss the patient's ejection fraction, wall motion ____ any end organ damage ____ longstanding hyperte nsion, not just -induced. Thank you for allowing me to take part in the care of this patient. I will continue following very closely with you with further recommendations to be made as the patient progresses through her [facility] clinical course. Dictated By: PRANAY BARTHOLOMEW/SKYLER Conf#: [id number] DID#: [id number] CC: JOHNATHON REY MD;*EndCC*
[2016-10-03] MEDS: OXYCODONE/ACETAMINOPHEN (5/325) TAB PO PRN ×2 (14:11→20:33)
[2016-10-03] MEDS: NIFEdipine (XL) 30 MG TAB PO SCH (14:12)
--- NOTE | 2016-10-03 19:04 | RADRPT ---
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 Physician: PRANAY MCKEON Quality: Good Procedures: Transthoracic echocardiogram with complete 2D, M-Mode, and doppler examination. Indications: Hypertension. 2D/M Mode Doppler Measurement Value Normal Ranges Measurement Value Normal Ranges LVIDd 2D 4.6 3.5 - 5.6 cm AV Peak Herminio 1.4 m/sec LVIDs 2D 2.6 2.1 - 4.1 cm AV Peak PG 8.2 mmHg LVPWd 2D 1.3 0.6 - 1.1 cm LVOT Peak Herminio 1.1 m/sec IVSd 2D 1.3 0.6 - 1.1 cm LVOT Peak PG 4.5 mmHg AoR Diam 2D 2.2 2.0 - 3.7 cm MV E Peak Herminio 0.9 m/sec EDV 2D 95.3 cm3 MV A Peak Herminio 0.7 m/sec ESV 2D 16.7 cm3 MV E/A 1.2 LA Dimen 2D 3.1 2.3 - 4.0 cm MV Decel Time 145 msec MV Decel [place] 6 MV E/A 1.2 Findings Left Ventricle: Normal left ventricular systolic function. Normal left ventricular cavity size. Moderate concentric left ventricular hypertrophy. Ejection fraction is visually estimated at 60 %. Tissue Doppler/Mitral Doppler indices are within normal limits. Right Ventricle: Normal right ventricular size. Normal right ventricular systolic function. Left Atrium: The left atrium is normal in size. Right Atrium: The right atrium is normal in size. Mitral Valve: Normal appearance and function of the mitral valve with trace physiologic regurgitation. Aortic Valve: Normal appearance of the aortic valve. No significant aortic stenosis or insufficiency. Tricuspid Valve: Normal appearance and function of the tricuspid valve with trace physiologic regurgitation. Normal right ventricular systolic pressure. Pulmonic Valve: Normal pulmonic valve appearance. There is trace pulmonic regurgitation. Pericardium: Normal pericardium with no significant pericardial effusion. Aorta: Normal aortic root. IVC: Normal size and normal respiratory collapse consistent with normal right atrial pressure. Conclusions 1.Normal left ventricular systolic function. Normal left ventricular cavity size. Moderate concentric left ventricular hypertrophy. Ejection fraction is visually estimated at 60 %. Tissue Doppler/Mitral Doppler indices are within normal limits. 2.Normal appearance and function of the mitral valve with trace physiologic regurgitation. 3.Normal appearance and function of the tricuspid valve with trace physiologic regurgitation. Normal right ventricular systolic pressure. 4.Normal pulmonic valve appearance. There is trace pulmonic regurgitation. Electronically Signed By: Pranay Mckeon 03-Oct-2016 19:04:09 -0700 Patient Name: MARY DELGADO Study Date: 03-Oct-2016 [id number]
[2016-10-04] VITALS (18 sets, daily range): BP systolic 125–194; BP diastolic 80–115; PULSE 63–147; RESP 18–20; Ht 167.6 cm; Wt 77.8 kg
[2016-10-04] MEDS: OXYCODONE/ACETAMINOPHEN (5/325) TAB PO PRN ×5 (06:11→22:22)
[2016-10-04] MEDS: FERROUS SULFATE (EC) 325 MG TAB PO SCH ×2 (08:03→20:28)
[2016-10-04] MEDS: NIFEdipine (XL) 30 MG TAB PO SCH (08:03)
[2016-10-04] MEDS: MAGNESIUM SULFATE 20 GM/500 ML 500 ML IV SCH ×2 (09:30→19:30)
[2016-10-04 09:31] LABS: CHOL/HDL RATIO 3.3 RATIO
--- NOTE | 2016-10-04 12:24 | PN ---
Date/Time of Note Date/Time of Note DATE: 10/04/16 TIME: 12:21 Assessment/Plan VTE Prophylaxis VTE Prophylaxis Intervention: SCD's Lines/Catheters IV [facility]ter [facility] (from [facility] Saline Lock Urinary Cath still in place: No Assessment/Plan Chief Complaint/Hosp Course Assessment and plan 1. Essential hypertension Possibly -induced hypertension, with noncompliant with medical management Patient has been refusing medications such as atenolol and other blood pressure medication and stating when her blood pressure is elevated she feels better. She has been refusing some of the blood pressure medications due to the above although she is requesting that her blood pressure to be controlled before discharge. I had a long conversation with the patient regarding the importance of compliance with medication. hydralazine has been discontinued by cardiology and patient has been placed on Procardia XL, continue clonidine as needed 2. 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 Disposition: Continue to monitor blood pressure Discharge as per M[employer]'S AND BOYS' CLOTHING SALESPERSON team when systolic blood pressure is less than 135 Problems: Subjective 24 Hr Interval Summary Free Text/Dictation Patient denies of any chest pain or shortness of breathPatient denies of having any CP or SOB No N/V/D Tolerating PO intake Upon evaluation of her blood pressure was noted that patient squeezes her arm and flexes her arm Exam/Review of Systems Vital Signs Vitals Vital Signs Date Time Temp Pulse Resp B/P Pulse Ox O2 Delivery O2 Flow Rate FiO2 10/04/16 11:58 98.1 71 18 172/97 94 10/04/16 08:03 Room Air Intake and Output 10/03/16 10/03/16 10/04/16 15:00 23:00 07:00 Intake Total 650 ml 250 ml Output Total 1730 ml 450 ml Balance -1080 ml -200 ml Exam General: The patient is well-developed, Not in acute distress. HEENT: Atraumatic, normocephalic. The pupils are equal and round . Neck: Supple with full range of motion. Chest: Normal expansion of the thorax during inspiration Lungs: Clear to auscultation bilaterally Heart: Normal S1-S2, Regular rhythm and rate. Abdomen: Soft , nontender, nondistended , bowel sounds are present. Extremities: Normal to inspection, no edema no cyanosis Neurologic: Normal mental status,The patient is awake, alert and oriented . Results Result Diagram: 10/02/16 1759 10/02/16 1759 Results 24 hrs Laboratory Tests Test 10/03/16 14:00 10/03/16 17:55 10/04/16 07:05 Troponin I < 0.012 Magnesium Level 4.0 H Triglycerides Level 150 H Cholesterol Level 237 H LDL Cholesterol, Calculated 136 HDL Cholesterol 71 Cholesterol/HDL Ratio 3.3 Medications Medications Current Medications Methylergonovine Maleate (Methergine) 0.2 mg Q6H PRN PO VAGINAL BLEEDING; Start 09/29/16 at 19:00 Oxycodone/ Acetaminophen (Percocet (5/ 325)) 1 tab Q4H PRN PO PAIN LEVEL 4-6 Last administered on 10/01/16 07:07; Admin Dose 1 TAB; Start 09/29/16 at 19:00 Oxycodone/ Acetaminophen (Percocet (5/ 325)) 2 tab Q4H PRN PO PAIN LEVEL 7-10 Last administered on 10/04/16 10:51; Admin Dose 2 TAB; Start 09/29/16 at 19:00 Simethicone (Mylicon) 160 mg Q8H PRN PO DISTENSION/GAS/BLOATING; Start at 19:00 Sodium Biphosphate/ Sodium Phosphate 133 ml 133 ml DAILY PRN [place] CONSTIPATION; Start 09/29/16 at 19:00 Oxytocin/Lactated Ringer's 500 ml @ 0 mls/hr ONCE PRN IV For Hemorrhage Management; Start 09/29/16 at 19:00 Methylergonovine Maleate (Methergine) 0.2 mg ONCE PRN IM VAGINAL BLEEDING; Start 09/29/16 at 19:00 Carboprost Tromethamine (Hemabate) 250 mcg ONCE PRN IM VAGINAL BLEEDING; Start 09/29/16 at 19:00 Misoprostol (Cytotec) 1,000 mcg ONCE PRN [place] VAGINAL BLEEDING; Start 09/29/16 at 19:00 Ibuprofen (Motrin) 600 mg Q6H PRN PO PAIN Last administered on 10/03/16 08:58 ; Admin Dose 600 MG; Start 09/29/16 at 19:00 Acetaminophen (Tylenol Tab) 500 mg Q6H PRN PO PAIN AND OR ELEVATED TEMP; Start 09/29/16 at 19:00 Ferrous Sulfate 325 mg 325 mg BID PO Last administered on 10/04/16 08:03; Admin Dose 325 MG; Start 10/01/16 at 21:00 Magnesium Sulfate (Magnesium Sulfate 20 Gm/500 ml) 500 ml @ 50 mls/hr Q10H IV Last administered on 10/03/16 08:54; Admin Dose 50 MLS/HR; Start 10/02/16 at 17 :30 Hydralazine HCl (Apresoline) 25 mg TID PO ; Start 10/03/16 at 13:00; Status Future Hold Clonidine (Catapres) 0.1 mg Q6H PRN PO ELEVATED BLOOD PRESSURE; Start 10/03/16 at 10:30 Nifedipine (Procardia Xl) 60 mg BID PO ; Start 10/04/16 at 21:00 JOHNATHON REY MD Oct 04, 2016 12:24
--- NOTE | 2016-10-04 12:43 | PN ---
Date/Time of Note Date/Time of Note DATE: 10/04/16 TIME: 12:37 OB Subjective Subjective Subjective October 04, 2069 OB progress note This patient is a 31 years old 6 para 3 who came to the clinic when she was about 35 weeks and 6 days due to very high blood pressure she underwent went a section 5 days ago today which is the first day of her surgery she is afebrile Abdomen is soft Breasts are soft Nipples are intact her blood pressure is running around 160/95 Extremities are not edematous Her incision is clean Plato were removed Steri-Strips were placed Patient will be followed by internal medicine regarding her blood pressure Felch apparently is doing well Laboratory Tests Test 10/03/16 14:00 10/03/16 17:55 10/04/16 07:05 Troponin I < 0.012ng/ml Magnesium Level 4.0mg/dl Triglycerides Level 150mg/dl Cholesterol Level 237mg/dl LDL Cholesterol, Calculated 136mg/dl HDL Cholesterol 71mg/dl Cholesterol/HDL Ratio 3.3RATIO Current Medications Medications (Trade) Dose Ordered Sig/Rosanne Route PRN Reason Start Time Stop Time Status Last Admin Dose Admin Lactated Ringer's 1,000 ml @ 125 mls/hr Q8H IV 09/28/16 11:54 09/29/16 11:13 DC Lactated Ringer's 1,000 ml @ 125 mls/hr Q8H IV 09/29/16 10:43 09/29/16 18:55 DC Cefazolin Sodium/ Dextrose 50 ml @ 100 mls/hr ONCE IV 09/29/16 11:00 09/29/16 18:55 DC Oxytocin/Lactated Ringer's 500 ml @ 125 mls/hr ONCE IV 09/29/16 11:00 09/29/16 18:55 DC 09/29/16 16:57 Oxytocin/Lactated Ringer's 500 ml @ 0 mls/hr ONCE PRN IV For Hemorrhage Management 09/29/16 11:00 09/29/16 18:55 DC Methylergonovine Maleate (Methergine) 0.2 mg ONCE PRN IM VAGINAL BLEEDING 09/29/16 11:00 09/29/16 18:55 DC Carboprost Tromethamine (Hemabate) 250 mcg ONCE PRN IM VAGINAL BLEEDING 09/29/16 11:00 09/29/16 18:55 DC Misoprostol (Cytotec) 1,000 mcg ONCE PRN [place] VAGINAL BLEEDING 09/29/16 11:00 09/29/16 18:55 DC Citric Acid/ Sodium Citrate (Bicitra) 30 ml pre-procedure ONCE PO 09/29/16 12:30 09/29/16 12:31 DC 09/29/16 13:10 Morphine Sulfate (Duramorph) 10 mg STK-MED ONCE .ROUTE 09/29/16 12:47 09/29/16 12:48 DC Fentanyl (Sublimaze) 100 mcg STK-MED ONCE .ROUTE 09/29/16 12:47 09/29/16 12:48 DC Naloxone HCl (Narcan) 0.1 mg Q2M PRN IV FOR RESP RATE 8 OR LESS 09/29/16 12:30 09/29/16 18:55 DC Ketorolac Tromethamine (Toradol) 30 mg Q6H PRN IV PAIN 09/29/16 12:30 09/29/16 18:55 DC 09/29/16 16:52 Hydromorphone HCl (Dilaudid) 0.2 mg Q3H PRN IV PAIN LEVEL 1-5 09/29/16 12:30 09/29/16 18:55 DC Hydromorphone HCl (Dilaudid) 0.4 mg Q3H PRN IV PAIN LEVEL 6-10 09/29/16 12:30 09/29/16 18:55 DC 09/29/16 18:06 Diphenhydramine HCl (Benadryl) 25 mg Q6H PRN IV ITCHING 09/29/16 12:30 09/29/16 18:55 DC Ondansetron HCl (Zofran Inj) 4 mg Q6H PRN IV NAUSEA AND/OR VOMITING 09/29/16 12:30 09/29/16 18:55 DC Zolpidem Tartrate (Ambien) 5 mg HS MAY REPEAT X 1 PRN PO INSOMNIA 09/29/16 12:30 09/29/16 18:55 DC Miscellaneous Information (* Miscellaneous Pharmacy Order) Duramorph: .2 mg Spi... GIVEN XX 09/29/16 12:30 09/29/16 18:55 DC Dexamethasone (Decadron) 4 mg STK-MED ONCE .ROUTE 09/29/16 13:59 4/20/17 14:00 DC Ondansetron HCl 4 mg 4 mg STK-MED ONCE .ROUTE 09/29/16 13:59 09/29/16 14:00 DC Lactated Ringer's 1,000 ml @ 125 mls/hr Q8H IV 09/29/16 18:52 09/30/16 17:35 DC 09/30/16 08:59 Oxytocin/Lactated Ringer's 500 ml @ 125 mls/hr Q4H IV 09/29/16 18:52 09/30/16 02:51 DC 09/29/16 21:15 Methylergonovine Maleate (Methergine) 0.2 mg Q6H PRN PO VAGINAL BLEEDING 09/29/16 19:00 Oxycodone/ Acetaminophen (Percocet (5/ 325)) 1 tab Q4H PRN PO PAIN LEVEL 4-6 09/29/16 19:00 10/01/16 07:07 Oxycodone/ Acetaminophen (Percocet (5/ 325)) 2 tab Q4H PRN PO PAIN LEVEL 7-10 09/29/16 19:00 10/04/16 10:51 Simethicone (Mylicon) 160 mg Q8H PRN PO DISTENSION/GAS/BLOATING 09/29/16 19:00 Sodium Biphosphate/ Sodium Phosphate (Fleet Enema) 133 ml DAILY PRN [place] CONSTIPATION 09/29/16 19:00 Lanolin ([id number]) 1 applic BEDSIDE MEDICATION PRN TOP BEDSIDE FOR AMALIA TO NIPPLES 09/29/16 19:00 Diphtheria/ Tetanus/Acell Pertussis 0.5 ml 0.5 ml ONCE ONCE IM* 10/02/16 09:00 10/02/16 09:01 DC Oxytocin/Lactated Ringer's 500 ml @ 0 mls/hr ONCE PRN IV For Hemorrhage Management 09/29/16 19:00 Methylergonovine Maleate (Methergine) 0.2 mg ONCE PRN IM VAGINAL BLEEDING 09/29/16 19:00 Carboprost Tromethamine (Hemabate) 250 mcg ONCE PRN IM VAGINAL BLEEDING 09/29/16 19:00 Misoprostol (Cytotec) 1,000 mcg ONCE PRN [place] VAGINAL BLEEDING 09/29/16 19:00 Ibuprofen (Motrin) 600 mg Q6H PRN PO PAIN 09/29/16 19:00 10/03/16 08:58 Acetaminophen (Tylenol Tab) 500 mg Q6H PRN PO PAIN AND OR ELEVATED TEMP 09/29/16 19:00 Nifedipine (Procardia) 30 mg ONCE ONCE PO 09/30/16 05:30 09/30/16 06:26 DC Ketorolac Tromethamine (Toradol) 30 mg Q6H PRN IV PAIN 09/30/16 09:15 10/03/16 09:14 DC 09/30/16 09:29 Atenolol (Tenormin) 25 mg DAILY PO 10/01/16 09:00 10/02/16 09:08 DC Ferrous Sulfate (Ferrous Sulfate (Ec)) 325 mg BID PO 10/01/16 21:00 10/04/16 08:03 Atenolol (Tenormin) 12.5 mg DAILY PO 10/02/16 05:30 UNV Atenolol (Tenormin) 12.5 mg DAILY PO 10/02/16 09:00 10/02/16 09:17 DC 10/02/16 05:45 Atenolol (Tenormin) 12.5 mg ONCE ONCE PO 10/02/16 09:00 10/02/16 09:01 UNV Atenolol (Tenormin) 25 mg DAILY PO 10/02/16 09:17 10/02/16 09:20 DC Atenolol (Tenormin) 12.5 mg ONCE PO 10/02/16 10:30 10/02/16 10:31 DC 10/02/16 09:51 Atenolol 25 mg 25 mg DAILY PO 10/03/16 09:00 10/03/16 09:00 DC Magnesium Sulfate (Magnesium Sulfate 20 Gm/500 ml) 500 ml @ 50 mls/hr Q10H IV 10/02/16 17:30 10/03/16 08:54 Clonidine (Catapres) 0.1 mg ONCE ONCE PO 10/02/16 17:40 10/02/16 19:40 DC 10/02/16 17:58 Hydralazine HCl 25 mg 25 mg Q8 PO 10/02/16 18:00 10/02/16 19:42 DC 10/02/16 17:58 Lactated Ringer's (Lr) 1,000 ml @ 75 mls/hr [id number] IV 10/02/16 17:30 10/03/16 10:10 DC 10/03/16 08:06 Clonidine (Catapres) 0.1 mg TID PO 10/02/16 21:00 10/03/16 10:10 DC 10/03/16 08:58 Hydralazine HCl (Apresoline) 25 mg TID PO 10/03/16 13:00 Future Hold Clonidine (Catapres) 0.1 mg Q6H PRN PO ELEVATED BLOOD PRESSURE 10/03/16 10:30 Nifedipine (Procardia Xl) 30 mg DAILY PO 10/03/16 13:00 10/04/16 11:21 DC 10/04/16 08:03 Nifedipine (Procardia Xl) 60 mg BID PO 10/04/16 21:00 UNV Nifedipine (Procardia Xl) 60 mg BID PO 10/04/16 21:00 Disposition: We will follow her along with internal medicine. The decision regarding her discharge will be made by our internal medicine colic due to need for longer periods of time blood pressure medication and care BRITTANI HUBBARD MD Oct 04, 2016 12:43
--- NOTE | 2016-10-04 13:22 | QN ---
Documentation Comment Mom still hospitalized for BP treatment. I spoke to her regarding her declination of Screening. She bases this on magan and personal beliefs. . She also did not have her previous child vaccinated, and does not intend to have this present child vaccinated. She stated she researched the ingredients herself including calling CDC and did not like the ingredients. I addressed the seriousness of the kind of diseases and metabolic errors that are screened. including conditionssuch as hypothyroidism and PKU where early detection clinically is virtually impossible but is vital for mcfp development and outcome when comparing early and late treatment. I also discussed the seriousness of disease prevented by vaccinations avoiding disability and . Mother continues in her opinions and declined. and thereupon I ended the conversation and wished her and her baby well. Tonya Bobby MD [employer] TONYA RENTERIA Oct 04, 2016 13:22
--- NOTE | 2016-10-04 13:29 | CONS ---
Date/Time of Note Date/Time of Note DATE: 10/04/16 TIME: 13:27 Assessment/Plan Assessment/Plan Additional Assessment/Plan 1. Hypertension, likely -induced- con't to increase BP meds as tolerated. 2. Abnormal electrocardiogram with inferior T-wave flattening to biphasic T- wave abnormalities. 3. Status post delivery - baby doing well, d/c with sister today 4. Systolic murmur - ECHO to follow EF 55%, MR/TR mild Consultation Date/Type/Reason Admit Date/Time Sep 28, 2016 at 11:16 Initial Consult Date Type of Consultation: Internal medicine Referring Provider: KRISTOFER PEPPER MD 24 HR Interval Summary Free Text/Dictation No acute events - con't MED Rx ROS: No fever, no chills, no nausea, no vomiting, no diarrhea/constipation No recent weight changes No chest pain, no PND, no orthopnea No dizziness, blurred vision No thirst, no heat or cold intolerance Exam/Review of Systems Vital Signs Vitals Vital Signs Date Time Temp Pulse Resp B/P Pulse Ox O2 Delivery O2 Flow Rate FiO2 10/04/16 12:34 64 10/04/16 11:58 98.1 18 172/97 94 10/04/16 08:03 Room Air Intake and Output 10/03/16 10/03/16 10/04/16 15:00 23:00 07:00 Intake Total 650 ml 250 ml Output Total 1730 ml 450 ml Balance -1080 ml -200 ml Exam General: WN/WD/NAD, AOx 3 HEENT: Unicetric/atraumatic/EOMI (follow commands) NECK: JVD elevated, no thyromegaly Lymph: no lymphadenopathy HEART: regular with no S3, II/ systolic murmur at apex LUNGS: Coarse sounds ABD: soft, NT, ND, +BS, post : Intact Neuro: non focal SKIN: chronic changes EXT: trace edema Results Result Diagram: 10/02/16175810/02/161758 Results 24 hrs Laboratory Tests Test 10/03/16 14:00 10/03/16 17:55 10/04/16 07:05 Troponin I < 0.012 Magnesium Level 4.0 H Triglycerides Level 150 H Cholesterol Level 237 H LDL Cholesterol, Calculated 136 HDL Cholesterol 71 Cholesterol/HDL Ratio 3.3 Medications Medications Current Medications Methylergonovine Maleate (Methergine) 0.2 mg Q6H PRN PO VAGINAL BLEEDING; Start 09/29/16 at 19:00 Oxycodone/ Acetaminophen (Percocet (5/ 325)) 1 tab Q4H PRN PO PAIN LEVEL 4-6 Last administered on 10/01/16 07:07; Admin Dose 1 TAB; Start 09/29/16 at 19:00 Oxycodone/ Acetaminophen (Percocet (5/ 325)) 2 tab Q4H PRN PO PAIN LEVEL 7-10 Last administered on 10/04/16 10:51; Admin Dose 2 TAB; Start 09/29/16 at 19:00 Simethicone (Mylicon) 160 mg Q8H PRN PO DISTENSION/GAS/BLOATING; Start at 19:00 Sodium Biphosphate/ Sodium Phosphate 133 ml 133 ml DAILY PRN [place] CONSTIPATION; Start 09/29/16 at 19:00 Oxytocin/Lactated Ringer's 500 ml @ 0 mls/hr ONCE PRN IV For Hemorrhage Management; Start 09/29/16 at 19:00 Methylergonovine Maleate (Methergine) 0.2 mg ONCE PRN [place] VAGINAL BLEEDING; Start 09/29/16 at 19:00 Carboprost Tromethamine (Hemabate) 250 mcg ONCE PRN IM VAGINAL BLEEDING; Start 09/29/16 at 19:00 Misoprostol (Cytotec) 1,000 mcg ONCE PRN [place] VAGINAL BLEEDING; Start 09/29/16 at 19:00 Ibuprofen (Motrin) 600 mg Q6H PRN PO PAIN Last administered on 10/03/16 08:58 ; Admin Dose 600 MG; Start 09/29/16 at 19:00 Acetaminophen (Tylenol Tab) 500 mg Q6H PRN PO PAIN AND OR ELEVATED TEMP; Start 09/29/16 at 19:00 Ferrous Sulfate 325 mg 325 mg BID PO Last administered on 10/04/16 08:03; Admin Dose 325 MG; Start 10/01/16 at 21:00 Magnesium Sulfate (Magnesium Sulfate 20 Gm/500 ml) 500 ml @ 50 mls/hr Q10H IV Last administered on 10/03/16 08:54; Admin Dose 50 MLS/HR; Start 10/02/16 at 17 :30 Hydralazine HCl (Apresoline) 25 mg TID PO ; Start 10/03/16 at 13:00; Status Future Hold Clonidine (Catapres) 0.1 mg Q6H PRN PO ELEVATED BLOOD PRESSURE; Start 10/03/16 at 10:30 Nifedipine (Procardia Xl) 60 mg BID PO ; Start 10/04/16 at 21:00 LUTHER NICHOLSON MD Oct 04, 2016 13:29
[2016-10-04] MEDS ORDERED: NIFEdipine (XL) 60 MG TAB PO SCH (21:00)
[2016-10-04] MEDS ORDERED: NIFEdipine (XL) 30 MG TAB PO SCH (21:00)
[2016-10-04] MEDS ORDERED: NIFEdipine (XL) 90 MG TAB PO SCH (21:00)
--- NOTE | 2016-10-04 21:59 | RADRPT ---
Vent Rate: 82 bpm RR Interval: 0 msec ND Interval: 166 msec QRS Duration: 96 msec QT Interval: 342 msec QTC Interval: 399 msec P-R-T [place]: 45 - 55 - 22 degrees Normal sinus rhythm Normal ECG Electronically Signed By: Rishabh Linares [id number]
--- NOTE | 2016-10-04 22:10 | RADRPT ---
Vent Rate: 72 bpm RR Interval: [address] Interval: 162 msec QRS Duration: 96 msec QT Interval: 366 msec QTC Interval: 400 msec P-R-T [place]: 62 - 73 - 52 degrees Normal sinus rhythm Normal ECG Electronically Signed By: Rishabh Linares [id number]
[2016-10-05] VITALS (11 sets, daily range): BP systolic 105–152; BP diastolic 56–91; PULSE 75–145; RESP 16–18
[2016-10-05] MEDS: MAGNESIUM SULFATE 20 GM/500 ML 500 ML IV SCH (02:44)
[2016-10-05] MEDS: OXYCODONE/ACETAMINOPHEN (5/325) TAB PO PRN (06:00)
[2016-10-05] MEDS: FERROUS SULFATE (EC) 325 MG TAB PO SCH ×2 (09:27→22:45)
--- NOTE | 2016-10-05 12:09 | PN ---
Date/Time of Note Date/Time of Note DATE: 10/05/16 TIME: 12:07 Assessment/Plan VTE Prophylaxis VTE Prophylaxis Intervention: SCD's Lines/Catheters IV Catheter Type (from [facility]): Peripheral IV Urinary Cath still in place: No Assessment/Plan Chief Complaint/Hosp Course Assessment and plan 1. Essential hypertension Possibly -induced hypertension, with noncompliant with medical management Patient has been refusing medications such as atenolol and other blood pressure medication and stating when her blood pressure is elevated she feels better. She has been refusing some of the blood pressure medications due to the above although she is requesting that her blood pressure to be controlled before discharge. I had a long conversation with the patient regarding the importance of compliance with medication. Well-controlled on Procardia XL, 2. Status post , LIFE ASSURANCE REPRESENTATIVE team is following Disposition: At this time patient blood pressure is well controlled and medicine team will sign off Discharge as per LIFE ASSURANCE REPRESENTATIVE team on Procardia Follow up with [facility] TRANSFER OPERATOR and primary care physician as outpatient Medicine team will sign off and will follow up as needed Problems: Subjective 24 Hr Interval Summary Free Text/Dictation Patient denies of any chest pain or shortness of breath She is stating that her blood pressure which has improved she is feeling mildly weak and complains of having headache No nausea vomiting diarrhea Tolerating oral intake Exam/Review of Systems Vital Signs Vitals Vital Signs Date Time Temp Pulse Resp B/P Pulse Ox O2 Delivery O2 Flow Rate FiO2 10/05/16 08:17 145 10/05/16 07:55 98.5 18 105/56 95 10/04/16 15:24 Room Air Intake and Output 10/04/16 10/04/16 10/05/16 15:00 23:00 07:00 Intake Total 400 ml 250 ml Output Total 4 ml 500 ml Balance 396 ml -250 ml Exam General: The patient is well-developed, Not in acute distress. HEENT: Atraumatic, normocephalic. The pupils are equal and round . Neck: Supple with full range of motion. Chest: Normal expansion of the thorax during inspiration Lungs: Clear to auscultation bilaterally Heart: Normal S1-S2, Regular rhythm and rate. Abdomen: Soft , nontender, nondistended , bowel sounds are present. Extremities: Normal to inspection, no edema no cyanosis Neurologic: Normal mental status,The patient is awake, alert and oriented . Results Result Diagram: 10/02/16 1759 10/02/16 175 Medications Medications Current Medications Methylergonovine Maleate (Methergine) 0.2 mg Q6H PRN PO VAGINAL BLEEDING; Start 09/29/16 at 19:00 Oxycodone/ Acetaminophen (Percocet (5/ 325)) 1 tab Q4H PRN PO PAIN LEVEL 4-6 Last administered on 10/04/16 20:28; Admin Dose 1 TAB; Start 09/29/16 at 19:00 Oxycodone/ Acetaminophen (Percocet (5/ 325)) 2 tab Q4H PRN PO PAIN LEVEL 7-10 Last administered on 10/05/16 06:00; Admin Dose 2 TAB; Start 09/29/16 at 19:00 Simethicone (Mylicon) 160 mg Q8H PRN PO DISTENSION/GAS/BLOATING; Start at 19:00 Sodium Biphosphate/ Sodium Phosphate 133 ml 133 ml DAILY PRN [place] CONSTIPATION; Start 09/29/16 at 19:00 Oxytocin/Lactated Ringer's 500 ml @ 0 mls/hr ONCE PRN IV For Hemorrhage Management; Start 09/29/16 at 19:00 Methylergonovine Maleate (Methergine) 0.2 mg ONCE PRN IM VAGINAL BLEEDING; Start 09/29/16 at 19:00 Carboprost Tromethamine (Hemabate) 250 mcg ONCE PRN IM VAGINAL BLEEDING; Start 09/29/16 at 19:00 Misoprostol (Cytotec) 1,000 mcg ONCE PRN [place] VAGINAL BLEEDING; Start 09/29/16 at 19:00 Ibuprofen (Motrin) 600 mg Q6H PRN PO PAIN Last administered on 10/03/16 08:58 ; Admin Dose 600 MG; Start 09/29/16 at 19:00 Acetaminophen (Tylenol Tab) 500 mg Q6H PRN PO PAIN AND OR ELEVATED TEMP; Start 09/29/16 at 19:00 Ferrous Sulfate 325 mg 325 mg BID PO Last administered on 10/05/16 09:27; Admin Dose 325 MG; Start 10/01/16 at 21:00 Magnesium Sulfate (Magnesium Sulfate 20 Gm/500 ml) 500 ml @ 50 mls/hr Q10H IV Last administered on 4/24/17at 08:54; Admin Dose 50 MLS/HR; Start 10/02/16 at 17 :30 Hydralazine HCl (Apresoline) 25 mg TID PO ; Start 10/03/16 at 13:00; Status Future Hold Clonidine (Catapres) 0.1 mg Q6H PRN PO ELEVATED BLOOD PRESSURE Last administered on 10/04/16 22:23; Admin Dose 0.1 MG; Start 10/03/16 at 10:30 Nifedipine (Procardia Xl) 90 mg BID PO Last administered on 10/04/16 20:28; Admin Dose 90 MG; Start 10/04/16 at 21:00 JOHNATHON REY MD Oct 05, 2016 12:09
--- NOTE | 2016-10-05 12:58 | CONS ---
Date/Time of Note Date/Time of Note DATE: 10/05/16 TIME: 12:53 Assessment/Plan Assessment/Plan Chief Complaint/Hosp Course IMPRESSION: 1. Hypertension, likely -induced.-improving on oral CCB 2. Abnormal electrocardiogram with inferior T-wave flattening to biphasic T- wave abnormalities.-negative troponin x 2 3. Status post delivery. 4. Systolic murmur.-NL ERF by echo with trace to mild MR/TR Recc: -Tele -serial ecg's -Continue procardia XL and Follow BP closely -agree with mag repletion as necessary Problems: Consultation Date/Type/Reason Admit Date/Time Sep 28, 2016 at 11:16 Initial Consult Date 10/05/2016 Type of Consultation: Cardiology Reason for Consultation HTN Referring Provider: KRISTOFER PEPPER MD Exam/Review of Systems Vital Signs Vitals Vital Signs Date Time Temp Pulse Resp B/P Pulse Ox O2 Delivery O2 Flow Rate FiO2 10/05/16 12:16 98.5 82 18 141/90 100 10/04/16 15:24 Room Air Intake and Output 10/04/16 10/04/16 10/05/16 15:00 23:00 07:00 Intake Total 400 ml 250 ml Output Total 4 ml 500 ml Balance 396 ml -250 ml Exam Review of Systems: CONSTITUTIONAL: No fevers, chills. PULMONARY: No sob CARDIOVASCULAR: No chest pain/palpitations GASTROINTESTINAL: No nausea/vomiting. GENITOURINARY: No hematuria/dysuria. MUSCULOSKELETAL: No myagias/arthalgias. PSYCHIATRIC: The patient denies depression. NEUROLOGIC: No weakness Constitutional: alert, oriented Psych: no complaints Head: normocephalic ENMT: mucosa pink and moist Neck: jvd (9 cm water), supple Respiratory: clear to auscultation Cardiovascular: regular rate and rhythm Gastrointestinal: non-tender, soft Musculoskeletal: muscle tone (normal) Extremities: edema (none) Neurological: other (No focal deficits) Results Result Diagram: 10/02/16175810/02/161758 Medications Medications Current Medications Methylergonovine Maleate (Methergine) 0.2 mg Q6H PRN PO VAGINAL BLEEDING; Start 09/29/16 at 19:00 Oxycodone/ Acetaminophen (Percocet (5/ 325)) 1 tab Q4H PRN PO PAIN LEVEL 4-6 Last administered on 10/04/16 20:28; Admin Dose 1 TAB; Start 09/29/16 at 19:00 Oxycodone/ Acetaminophen (Percocet (5/ 325)) 2 tab Q4H PRN PO PAIN LEVEL 7-10 Last administered on 10/05/16 06:00; Admin Dose 2 TAB; Start 09/29/16 at 19:00 Simethicone (Mylicon) 160 mg Q8H PRN PO DISTENSION/GAS/BLOATING; Start at 19:00 Sodium Biphosphate/ Sodium Phosphate 133 ml 133 ml DAILY PRN [place] CONSTIPATION; Start 09/29/16 at 19:00 Oxytocin/Lactated Ringer's 500 ml @ 0 mls/hr ONCE PRN IV For Hemorrhage Management; Start 09/29/16 at 19:00 Methylergonovine Maleate (Methergine) 0.2 mg ONCE PRN IM VAGINAL BLEEDING; Start 09/29/16 at 19:00 Carboprost Tromethamine (Hemabate) 250 mcg ONCE PRN IM VAGINAL BLEEDING; Start 09/29/16 at 19:00 Misoprostol (Cytotec) 1,000 mcg ONCE PRN [place] VAGINAL BLEEDING; Start 09/29/16 at 19:00 Ibuprofen (Motrin) 600 mg Q6H PRN PO PAIN Last administered on 10/03/16 08:58 ; Admin Dose 600 MG; Start 09/29/16 at 19:00 Acetaminophen (Tylenol Tab) 500 mg Q6H PRN PO PAIN AND OR ELEVATED TEMP; Start 09/29/16 at 19:00 Ferrous Sulfate 325 mg 325 mg BID PO Last administered on 10/05/16 09:27; Admin Dose 325 MG; Start 10/01/16 at 21:00 Magnesium Sulfate (Magnesium Sulfate 20 Gm/500 ml) 500 ml @ 50 mls/hr Q10H IV Last administered on 10/03/16 08:54; Admin Dose 50 MLS/HR; Start 10/02/16 at 17 :30 Hydralazine HCl (Apresoline) 25 mg TID PO ; Start 10/03/16 at 13:00; Status Future Hold Clonidine (Catapres) 0.1 mg Q6H PRN PO ELEVATED BLOOD PRESSURE Last administered on 10/04/16 22:23; Admin Dose 0.1 MG; Start 10/03/16 at 10:30 Nifedipine (Procardia Xl) 60 mg BID PO ; Start 10/05/16 at 21:00 PRANAY ZAVALA Oct 05, 2016 12:58
[2016-10-05 14:00] LABS: ADD SCAN DIFF NO
[2016-10-05 14:03] LABS: BASOPHILS % 0.4 % (0.0-2.0); EOSINOPHILS # 0.1 10^3/ul (0.0-0.5); EOSINOPHILS % 0.9 % (0.0-7.0); HEMATOCRIT 28.5 % (37.0-47.0); HEMOGLOBIN 9.5 g/dl (12.0-16.0); LYMPHOCYTES # 2.6 10^3/ul (0.8-2.9); LYMPHOCYTES % 26.2 % (15.0-51.0); MEAN CORPUSCULAR HGB CONC 33.3 g/dl (32.0-37.0); MEAN CORPUSCULAR VOLUME 86.9 fl (82.0-101.0); MEAN PLATELET VOLUME 9.8 fl (7.4-10.4); MONOCYTE # 0.6 10^3/ul (0.3-0.9); NEUTROPHIL # 6.4 10^3/ul (1.6-7.5); PLATELET COUNT 445 10^3/UL (140-415); RED BLOOD COUNT 3.28 10^6/ul (4.20-5.40); RED CELL DISTRIBUTION WIDTH 13.3 % (11.5-14.5); WHITE BLOOD COUNT 9.8 10^3/ul (4.8-10.8)
[2016-10-05 14:14] LABS: ALBUMIN 3.4 g/dl (3.3-4.9)
[2016-10-05 14:15] LABS: POTASSIUM 3.7 mmol/L (3.5-5.1)
[2016-10-05 14:17] LABS: BILIRUBIN,INDIRECT 0.2 mg/dl (0-1.1); BILIRUBIN,TOTAL 0.2 mg/dl (0.2-1.3); CREATININE 0.62 mg/dl (0.44-1.00)
[2016-10-05 14:18] LABS: CALCIUM 8.6 mg/dl (8.4-10.2); TOTAL PROTEIN 7.2 g/dl (6.1-8.1)
--- NOTE | 2016-10-05 14:29 | QN ---
Documentation Comment Patient reports feeling pale and dizzy. reports when she gets up she feels racing her heart and sweating. Patient also complaint of headache and seeing flashing light with these symptoms. Denies any epigastric pain or RUQ pain. tolerated regular diet. Passed faltus. Vaginal bleeding minimal. Pumping he breasts. GA: A&O, does not appear to be in any acute distress Lungs; CTA bilaterally CV: Tachycardia noted with murmur abdomen: Soft, appropriate tenderness in the section incision noted. no abnormal discharge from the wound or erythema Normal bowel sounds Extremity: no calf tenderness, no click, no edema Orthostatics: Blood pressure in standin/101 [place]: 149 and ittin/105 and WV: 118 and lying down: 177/98 and WV: 92 Hematology - 72 Hrs Test 10/02/16 17:59 10/05/16 13:23 White Blood Count 10.010^3/ul (4.8-10.8) 9.810^3/ul (4.8-10.8) Red Blood Count 2.8110^6/ul (4.20-5.40) L 3.2810^6/ul (4.20-5.40) L Hemoglobin 8.1g/dl (12.0-16.0) L 9.5g/dl (12.0-16.0) L Hematocrit 24.6% (37.0-47.0) L 28.5% (37.0-47.0) L Mean Corpuscular Volume 87.5fl (82.0-101.0) 86.9fl (82.0-101.0) Mean Corpuscular Hemoglobin 28.8pg (29.0-33.0) L 29.0pg (29.0-33.0) Mean Corpuscular Hemoglobin Concent 32.9g/dl (32.0-37.0) 33.3g/dl (32.0-37.0) Red Cell Distribution Width 13.2% (11.5-14.5) 13.3% (11.5-14.5) Platelet Count 86288^3/UL (140-415) # 99693^3/UL (140-415) #H Mean Platelet Volume 10.4fl (7.4-10.4) 9.8fl (7.4-10.4) Neutrophils % 68.0% (39.0-77.0) 66.0% (39.0-77.0) Lymphocytes % 25.3% (15.0-51.0) 26.2% (15.0-51.0) Monocytes % 5.1% (0.0-11.0) 6.0% (0.0-11.0) Eosinophils % 0.7% (0.0-7.0) 0.9% (0.0-7.0) Basophils % 0.3% (0.0-2.0) 0.4% (0.0-2.0) Nucleated Red Blood Cells % 0.2/100WBC (0.0-0.0) H 0.0/100WBC (0.0-0.0) Neutrophils # 6.810^3/ul (1.6-7.5) 6.410^3/ul (1.6-7.5) Lymphocytes # 2.510^3/ul (0.8-2.9) 2.610^3/ul (0.8-2.9) Monocytes # 0.510^3/ul (0.3-0.9) 0.610^3/ul (0.3-0.9) Eosinophils # 0.110^3/ul (0.0-0.5) 0.110^3/ul (0.0-0.5) Basophils # 0.010^3/ul (0.0-0.1) 0.010^3/ul (0.0-0.1) Nucleated Red Blood Cells # 0.010^3/ul (0.0-0.0) 0.010^3/ul (0.0-0.0) Chemistry Test 10/02/16 17:59 10/03/16 02:25 10/03/16 05:57 10/03/16 12:14 Sodium Level 137mmol/L (135-144) Potassium Level 3.3mmol/L (3.5-5.1) L Chloride Level 100mmol/L (97-110) Carbon Dioxide Level 28mmol/L (21-31) Anion Gap 12 (8-16) Blood Urea Nitrogen 8mg/dl (7-20) Creatinine 0.69mg/dl (0.44-1.00) Glucose Level 112mg/dl (70-220) Uric Acid 5.1mg/dl (3.1-7.9) Calcium Level 8.5mg/dl (8.4-10.2) Total Bilirubin 0.2mg/dl (0.2-1.3) Direct Bilirubin 0.00mg/dl (0.00-0.20) Indirect Bilirubin 0.2mg/dl (0-1.1) Aspartate Amino Transf (AST/SGOT) 28IU/L (15-46) Alanine Aminotransferase (ALT/SGPT) 23IU/L (13-69) Alkaline Phosphatase 174IU/L (42-121) H Total Protein 6.3g/dl (6.1-8.1) # Albumin 2.9g/dl (3.3-4.9) L Globulin 3.40g/dl (1.3-3.2) H Albumin/Globulin Ratio 0.85 Magnesium Level 5.0mg/dl (1.7-2.5) H 3.9mg/dl (1.7-2.5) H 5.0mg/dl (1.7-2.5) H Test 10/03/16 14:00 10/03/16 17:55 10/04/16 07:05 10/05/16 13:23 Troponin I < 0.012ng/ml (0.00-0.12) Magnesium Level 4.0mg/dl (1.7-2.5) H Triglycerides Level 150mg/dl (0-149) H Cholesterol Level 237mg/dl (100-200) H LDL Cholesterol, Calculated 136mg/dl HDL Cholesterol 71mg/dl (34-82) Cholesterol/HDL Ratio 3.3RATIO Sodium Level 136mmol/L (135-144) Potassium Level 3.7mmol/L (3.5-5.1) Chloride Level 101mmol/L (97-110) Carbon Dioxide Level 27mmol/L (21-31) Anion Gap 12 (8-16) Blood Urea Nitrogen 10mg/dl (7-20) Creatinine 0.62mg/dl (0.44-1.00) Glucose Level 89mg/dl (70-220) Calcium Level 8.6mg/dl (8.4-10.2) Total Bilirubin 0.2mg/dl (0.2-1.3) Direct Bilirubin 0.00mg/dl (0.00-0.20) Indirect Bilirubin 0.2mg/dl (0-1.1) Aspartate Amino Transf (AST/SGOT) 18IU/L (15-46) Alanine Aminotransferase (ALT/SGPT) 18IU/L (13-69) Alkaline Phosphatase 171IU/L (42-121) H Total Protein 7.2g/dl (6.1-8.1) Albumin 3.4g/dl (3.3-4.9) Assessment: S/p section due to severe preclampsia POD #5 currently being followed by Hospitalist for management of HTN. currently has evidence of tachycardia with change position( orthostatics). No evidence of bleeding internally. Hb stable I talked to Hospitalist Dr. Andrews. Per his opinion orthostatics are related to drop initially significantly her BP with a high dose of Nidedipine 90 mg . now decreased the dose Currently PIH labs are normal. I advised the patient about magnesium if the symptoms persists. she refused at this time. Elevated BP today due to non complaint patient to take her meds this morning. Symptoms are related to orthostatics. Hospitalist is aware and will follow up Will follow up Possible anticipate DC home tomorrow I requested psych consult due to not being complaint. Patient refused. will continue to watch closely. KRISTOFER PEPPER MD Oct 05, 2016 14:29
[2016-10-05] MEDS ORDERED: SOD CHLORIDE 0.9% 500 ML IV ONE (15:00)
[2016-10-05] MEDS ORDERED: MAGNESIUM SULFATE 20 GM/500 ML 500 ML IV SCH (15:30)
[2016-10-05] MEDS ORDERED: MAGNESIUM SULFATE 4 GM/100 ML 100 ML IVPB ONE (15:30)
[2016-10-05] MEDS: NIFEdipine (XL) 60 MG TAB PO SCH (22:45)
[2016-10-06] VITALS (13 sets, daily range): BP systolic 130–168; BP diastolic 80–98; PULSE 81–160; RESP 16–20
[2016-10-06] MEDS: IBUPROFEN 600 MG TAB PO PRN ×2 (00:11→22:38)
[2016-10-06 07:38] LABS: ADD SCAN DIFF NO
[2016-10-06 07:42] LABS: BASOPHILS % 0.5 % (0.0-2.0); EOSINOPHILS # 0.1 10^3/ul (0.0-0.5); EOSINOPHILS % 1.4 % (0.0-7.0); HEMATOCRIT 27.4 % (37.0-47.0); HEMOGLOBIN 8.9 g/dl (12.0-16.0); LYMPHOCYTES # 2.3 10^3/ul (0.8-2.9); LYMPHOCYTES % 26.2 % (15.0-51.0); MEAN CORPUSCULAR HEMOGLOBIN 28.3 pg (29.0-33.0); MEAN CORPUSCULAR HGB CONC 32.5 g/dl (32.0-37.0); MEAN PLATELET VOLUME 9.5 fl (7.4-10.4); MONOCYTE # 0.6 10^3/ul (0.3-0.9); NEUTROPHIL # 5.6 10^3/ul (1.6-7.5); NEUTROPHILS % 64.4 % (39.0-77.0); PLATELET COUNT 390 10^3/UL (140-415); RED BLOOD COUNT 3.15 10^6/ul (4.20-5.40); RED CELL DISTRIBUTION WIDTH 13.5 % (11.5-14.5); WHITE BLOOD COUNT 8.7 10^3/ul (4.8-10.8)
[2016-10-06 07:59] LABS: IRON 31 ug/dl (35-150)
[2016-10-06 08:02] LABS: CALCIUM 8.5 mg/dl (8.4-10.2); CREATININE 0.5 mg/dl (0.44-1.00); MAGNESIUM 1.8 mg/dl (1.7-2.5); POTASSIUM 4.3 mmol/L (3.5-5.1)
[2016-10-06 08:10] LABS: TOTAL IRON BINDING CAPACITY 364 ug/dl (241-421)
[2016-10-06] MEDS: NIFEdipine (XL) 60 MG TAB PO SCH ×2 (08:27→21:16)
[2016-10-06] MEDS: FERROUS SULFATE (EC) 325 MG TAB PO SCH (08:27)
--- NOTE | 2016-10-06 11:18 | PN ---
Date/Time of Note Date/Time of Note DATE: 10/06/16 TIME: 11:15 Assessment/Plan VTE Prophylaxis VTE Prophylaxis Intervention: SCD's Lines/Catheters [facility] [place] [facility] Urinary Cath still in place: No Assessment/Plan Chief Complaint/Hosp Course Assessment and plan 1. Essential hypertension Possibly -induced hypertension, with noncompliant with medical management Patient has been refusing medications such as atenolol and other blood pressure medication and stating when her blood pressure is elevated she feels better. I had a long conversation with the patient regarding the importance of compliance with medication. Better-controlled on Procardia XL, 60 mg p.o. twice daily 2. Status post , MACHINE II TRIMMER team is following 3. Iron deficiency anemia Patient has been started on ferrous sulfate plus vitamin C Recommend to be discharged on above medication 2 months Disposition: At this time patient blood pressure is better controlled and medicine team will sign off Discharge as per MACHINE II TRIMMER team on Procardia Follow up with ORTHODONTIC LAB TECHNICIAN and primary care physician as outpatient Medicine team will sign off and will follow up as needed Problems: Subjective 24 Hr Interval Summary Free Text/Dictation Patient denies of any chest pain or shortness of breath She complains of having generalized weakness No nausea vomiting diarrhea She has been able to tolerate her oral intake without any difficulty Blood pressure is mildly controlled on nifedipine Exam/Review of Systems Vital Signs Vitals Vital Signs Date Time Temp Pulse Resp B/P Pulse Ox O2 Delivery O2 Flow Rate FiO2 10/06/16 08:15 81 10/06/16 04:00 98.4 20 141/80 98 Room Air Intake and Output 10/05/16 10/05/16 10/06/16 15:00 23:00 07:00 Intake Total 550 ml 1240 ml Output Total 5 ml Balance 545 ml 1240 ml Exam General: The patient is well-developed, Not in acute distress. HEENT: Atraumatic, normocephalic. The pupils are equal and round . Neck: Supple with full range of motion. Chest: Normal expansion of the thorax during inspiration Lungs: Clear to auscultation bilaterally Heart: Normal S1-S2, Regular rhythm and rate. Abdomen: Soft , nontender, nondistended , bowel sounds are present. Extremities: Normal to inspection, no edema no cyanosis Neurologic: Normal mental status,The patient is awake, alert and oriented . Results Result Diagram: 10/06/16 0710 10/06/16 0710 Results 24 hrs Laboratory Tests Test 10/05/16 13:23 10/06/16 07:10 White Blood Count 9.8 8.7 Red Blood Count 3.28 L 3.15 L Hemoglobin 9.5 L 8.9 L Hematocrit 28.5 L 27.4 L Mean Corpuscular Volume 86.9 87.0 Mean Corpuscular Hemoglobin 29.0 28.3 L Mean Corpuscular Hemoglobin Concent 33.3 32.5 Red Cell Distribution Width 13.3 13.5 Platelet Count 445 #H 390 Mean Platelet Volume 9.8 9.5 Neutrophils % 66.0 64.4 Lymphocytes % 26.2 26.2 Monocytes % 6.0 7.0 Eosinophils % 0.9 1.4 Basophils % 0.4 0.5 Nucleated Red Blood Cells % 0.0 0.0 Neutrophils # 6.4 5.6 Lymphocytes # 2.6 2.3 Monocytes # 0.6 0.6 Eosinophils # 0.1 0.1 Basophils # 0.0 0.0 Nucleated Red Blood Cells # 0.0 0.0 Sodium Level 136 134 L Potassium Level 3.7 4.3 Chloride Level 101 107 Carbon Dioxide Level 27 24 Anion Gap 12 7 L Blood Urea Nitrogen 10 8 Creatinine 0.62 0.50 Glucose Level 89 82 Calcium Level 8.6 8.5 Total Bilirubin 0.2 Direct Bilirubin 0.00 Indirect Bilirubin 0.2 Aspartate Amino Transf (AST/SGOT) 18 Alanine Aminotransferase (ALT/SGPT) 18 Alkaline Phosphatase 171 H Total Protein 7.2 Albumin 3.4 Magnesium Level 1.8 Iron Level 31 L Total Iron Binding Capacity 364 Percent Iron Saturation 9 L Ferritin 17.7 Medications Medications Current Medications Methylergonovine Maleate (Methergine) 0.2 mg Q6H PRN PO VAGINAL BLEEDING; Start 09/29/16 at 19:00 Oxycodone/ Acetaminophen (Percocet (5/ 325)) 1 tab Q4H PRN PO PAIN LEVEL 4-6 Last administered on 10/04/16 20:28; Admin Dose 1 TAB; Start 09/29/16 at 19:00 Oxycodone/ Acetaminophen (Percocet (5/ 325)) 2 tab Q4H PRN PO PAIN LEVEL 7-10 Last administered on 10/05/16 06:00; Admin Dose 2 TAB; Start 09/29/16 at 19:00 Simethicone (Mylicon) 160 mg Q8H PRN PO DISTENSION/GAS/BLOATING; Start at 19:00 Sodium Biphosphate/ Sodium Phosphate 133 ml 133 ml DAILY PRN [place] CONSTIPATION; Start 09/29/16 at 19:00 Oxytocin/Lactated Ringer's 500 ml @ 0 mls/hr ONCE PRN IV For Hemorrhage Management; Start 09/29/16 at 19:00 Methylergonovine Maleate (Methergine) 0.2 mg ONCE PRN IM VAGINAL BLEEDING; Start 09/29/16 at 19:00 Carboprost Tromethamine (Hemabate) 250 mcg ONCE PRN IM VAGINAL BLEEDING; Start 09/29/16 at 19:00 Misoprostol (Cytotec) 1,000 mcg ONCE PRN [place] VAGINAL BLEEDING; Start 09/29/16 at 19:00 Ibuprofen (Motrin) 600 mg Q6H PRN PO PAIN Last administered on 10/06/16 00:11 ; Admin Dose 600 MG; Start 09/29/16 at 19:00 Acetaminophen 500 mg 500 mg Q6H PRN PO PAIN AND OR ELEVATED TEMP; Start at 19:00 Magnesium Sulfate (Magnesium Sulfate 20 Gm/500 ml) 500 ml @ 50 mls/hr Q10H IV Last administered on 10/03/16 08:54; Admin Dose 50 MLS/HR; Start 10/02/16 at 17 :30; Status Future Hold Hydralazine HCl (Apresoline) 25 mg TID PO ; Start 10/03/16 at 13:00; Status Future Hold Clonidine (Catapres) 0.1 mg Q6H PRN PO ELEVATED BLOOD PRESSURE Last administered on 10/04/16 22:23; Admin Dose 0.1 MG; Start 10/03/16 at 10:30 Nifedipine 60 mg 60 mg BID PO Last administered on 10/06/16 08:27; Admin Dose 60 MG; Start 10/05/16 at 21:00 Magnesium Sulfate (Magnesium Sulfate 20 Gm/500 ml) 500 ml @ 50 mls/hr Q10H IV ; Start 10/05/16 at 15:30; Status Future Hold Prenat Multivit/ [place]/Iron/Folic Ac ( S) 1 tab DAILY PO ; Start at 09:00 Ferrous Sulfate (Ferrous Sulfate (Ec)) 325 mg DAILY PO ; Start 10/07/16 at 09:00 Ascorbic Acid (Vitamin C) 500 mg DAILY PO ; Start 10/07/16 at 09:00 JOHNATHON REY MD Oct 06, 2016 11:18
--- NOTE | 2016-10-06 18:47 | CONS ---
Date/Time of Note Date/Time of Note DATE: 10/06/16 TIME: 18:45 Assessment/Plan Assessment/Plan Chief Complaint/Hosp Course IMPRESSION: 1. Hypertension, likely -induced.-improving on oral CCB 2. Abnormal electrocardiogram with inferior T-wave flattening to biphasic T- wave abnormalities.-negative troponin x 2 3. Status post delivery. 4. Systolic murmur.-NL ERF by echo with trace to mild MR/TR Recc: -Tele -serial ecg's -Continue procardia XL and Follow BP closely with possible need for additional anti-hypertensive -agree with mag repletion as necessary -D/C planning if BP remains relatively stable/well controlled likely affected by patient compliance Problems: Consultation Date/Type/Reason Admit Date/Time Sep 28, 2016 at 11:16 Initial Consult Date 10/05/2016 Type of Consultation: Cardiology Reason for Consultation HTN Referring Provider: KRISTOFER PEPPER MD Exam/Review of Systems Vital Signs Vitals Vital Signs Date Time Temp Pulse Resp B/P Pulse Ox O2 Delivery O2 Flow Rate FiO2 10/06/16 16:26 98.0 114 18 130/92 100 10/06/16 04:00 Room Air Intake and Output 10/05/16 10/05/16 10/06/16 15:00 23:00 07:00 Intake Total 550 ml 1240 ml Output Total 5 ml Balance 545 ml 1240 ml Exam Review of Systems: CONSTITUTIONAL: No fevers, chills. PULMONARY: No sob CARDIOVASCULAR: No chest pain/palpitations GASTROINTESTINAL: No nausea/vomiting. GENITOURINARY: No hematuria/dysuria. MUSCULOSKELETAL: No myagias/arthalgias. PSYCHIATRIC: The patient denies depression. NEUROLOGIC: No weakness Constitutional: alert Psych: no complaints Head: normocephalic ENMT: mucosa pink and moist Neck: jvd (8 cm water), supple Respiratory: clear to auscultation Cardiovascular: regular rate and rhythm Gastrointestinal: non-tender, soft Musculoskeletal: muscle tone (normal) Extremities: edema Neurological: other (No focal deficits) Results Result Diagram: 10/06/16 0710 10/06/16 0710 Results 24 hrs Laboratory Tests Test 10/06/16 07:10 White Blood Count 8.7 Red Blood Count 3.15 L Hemoglobin 8.9 L Hematocrit 27.4 L Mean Corpuscular Volume 87.0 Mean Corpuscular Hemoglobin 28.3 L Mean Corpuscular Hemoglobin Concent 32.5 Red Cell Distribution Width 13.5 Platelet Count 390 Mean Platelet Volume 9.5 Neutrophils % 64.4 Lymphocytes % 26.2 Monocytes % 7.0 Eosinophils % 1.4 Basophils % 0.5 Nucleated Red Blood Cells % 0.0 Neutrophils # 5.6 Lymphocytes # 2.3 Monocytes # 0.6 Eosinophils # 0.1 Basophils # 0.0 Nucleated Red Blood Cells # 0.0 Sodium Level 134 L Potassium Level 4.3 Chloride Level 107 Carbon Dioxide Level 24 Anion Gap 7 L Blood Urea Nitrogen 8 Creatinine 0.50 Glucose Level 82 Calcium Level 8.5 Magnesium Level 1.8 Iron Level 31 L Total Iron Binding Capacity 364 Percent Iron Saturation 9 L Ferritin 17.7 Medications Medications Current Medications Methylergonovine Maleate (Methergine) 0.2 mg Q6H PRN PO VAGINAL BLEEDING; Start 09/29/16 at 19:00 Oxycodone/ Acetaminophen (Percocet (5/ 325)) 1 tab Q4H PRN PO PAIN LEVEL 4-6 Last administered on 10/04/16 20:28; Admin Dose 1 TAB; Start 09/29/16 at 19:00 Oxycodone/ Acetaminophen (Percocet (5/ 325)) 2 tab Q4H PRN PO PAIN LEVEL 7-10 Last administered on 10/05/16 06:00; Admin Dose 2 TAB; Start 09/29/16 at 19:00 Simethicone (Mylicon) 160 mg Q8H PRN PO DISTENSION/GAS/BLOATING; Start at 19:00 Sodium Biphosphate/ Sodium Phosphate 133 ml 133 ml DAILY PRN [place] CONSTIPATION; Start 09/29/16 at 19:00 Oxytocin/Lactated Ringer's 500 ml @ 0 mls/hr ONCE PRN IV For Hemorrhage Management; Start 09/29/16 at 19:00 Methylergonovine Maleate (Methergine) 0.2 mg ONCE PRN IM VAGINAL BLEEDING; Start 09/29/16 at 19:00 Carboprost Tromethamine (Hemabate) 250 mcg ONCE PRN IM VAGINAL BLEEDING; Start 09/29/16 at 19:00 Misoprostol (Cytotec) 1,000 mcg ONCE PRN [place] VAGINAL BLEEDING; Start 09/29/16 at 19:00 Ibuprofen (Motrin) 600 mg Q6H PRN PO PAIN Last administered on 10/06/16 00:11 ; Admin Dose 600 MG; Start 09/29/16 at 19:00 Acetaminophen 500 mg 500 mg Q6H PRN PO PAIN AND OR ELEVATED TEMP; Start at 19:00 Magnesium Sulfate (Magnesium Sulfate 20 Gm/500 ml) 500 ml @ 50 mls/hr Q10H IV Last administered on 10/03/16 08:54; Admin Dose 50 MLS/HR; Start 10/02/16 at 17 :30; Status Future Hold Hydralazine HCl (Apresoline) 25 mg TID PO ; Start 10/03/16 at 13:00; Status Future Hold Clonidine (Catapres) 0.1 mg Q6H PRN PO ELEVATED BLOOD PRESSURE Last administered on 10/04/16 22:23; Admin Dose 0.1 MG; Start 10/03/16 at 10:30 Nifedipine 60 mg 60 mg BID PO Last administered on 10/06/16 08:27; Admin Dose 60 MG; Start 10/05/16 at 21:00 Magnesium Sulfate (Magnesium Sulfate 20 Gm/500 ml) 500 ml @ 50 mls/hr Q10H IV ; Start 10/05/16 at 15:30; Status Future Hold Prenat Multivit/ [place]/Iron/Folic Ac ( S) 1 tab DAILY PO ; Start at 09:00 Ferrous Sulfate (Ferrous Sulfate (Ec)) 325 mg DAILY PO ; Start 10/07/16 at 09:00 Ascorbic Acid (Vitamin C) 500 mg DAILY PO ; Start 10/07/16 at 09:00 PRANAY ZAVALA Oct 06, 2016 18:47
[2016-10-07] VITALS (15 sets, daily range): BP systolic 141–164; BP diastolic 76–113; PULSE 85–170; RESP 17–20
[2016-10-07] MEDS ORDERED: SOD CHLORIDE 0.9% 500 ML IV ONE ×3 (01:00→17:00)
[2016-10-07] MEDS: MULTIVIT/MIN/FOLATE/IRON/PREN TAB PO SCH (09:42)
[2016-10-07] MEDS: FERROUS SULFATE (EC) 325 MG TAB PO SCH (09:42)
[2016-10-07] MEDS: ASCORBIC ACID 500 MG TAB PO SCH (09:42)
[2016-10-07] MEDS: NIFEdipine (XL) 60 MG TAB PO SCH (09:43)
--- NOTE | 2016-10-07 10:15 | PN ---
Date/Time of Note Date/Time of Note DATE: 10/07/16 TIME: 10:10 Assessment/Plan VTE Prophylaxis VTE Prophylaxis Intervention: SCD's Lines/Catheters IV Catheter Type (from [facility]): Saline Lock Urinary Cath still in place: No Assessment/Plan Chief Complaint/Hosp Course Assessment and plan 1. Essential hypertension Possibly -induced hypertension, with noncompliant with medical management Cardiology has been consulted, will follow up his recommendations Recommend to discontinue Procardia XL, 60 mg p.o. and start metoprolol 25 mg secondary to tachycardia 2. 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 Iron deficiency anemia Continue ferrous sulfate plus vitamin C Recommend to be discharged on above medication 2 months Disposition: Discharge as per HOUSEKEEPING ASSOCIATE team Follow up with BICY[facility] REPAIRMAN and primary care physician as outpatient Medicine team will sign off and will follow up as needed Problems: Subjective 24 Hr Interval Summary Free Text/Dictation Patient denies of any chest pain or shortness of breath No nausea vomiting diarrhea Denies of any headache, lightheadedness, or weakness Is requesting to be discharged home today after her medication is being adjusted Exam/Review of Systems Vital Signs Vitals Vital Signs Date Time Temp Pulse Resp B/P Pulse Ox O2 Delivery O2 Flow Rate FiO2 10/07/16 08:32 86 10/07/16 07:46 98.2 18 141/91 100 10/06/16 04:00 Room Air Intake and Output 10/06/16 10/06/16 10/07/16 15:00 23:00 07:00 Intake Total 450 ml 1220 ml Balance 450 ml 1220 ml Exam General: The patient is well-developed, Not in acute distress. HEENT: Atraumatic, normocephalic. The pupils are equal and round . Neck: Supple with full range of motion. Chest: Normal expansion of the thorax during inspiration Lungs: Clear to auscultation bilaterally Heart: Normal S1-S2, Regular rhythm and rate. Abdomen: Soft , nontender, nondistended , bowel sounds are present. Extremities: Normal to inspection, no edema no cyanosis Neurologic: Normal mental status,The patient is awake, alert and oriented . Results Result Diagram: 10/06/16 0710 10/06/16 0710 Medications Medications Current Medications Methylergonovine Maleate (Methergine) 0.2 mg Q6H PRN PO VAGINAL BLEEDING; Start 09/29/16 at 19:00 Oxycodone/ Acetaminophen (Percocet (5/ 325)) 1 tab Q4H PRN PO PAIN LEVEL 4-6 Last administered on 10/04/16 20:28; Admin Dose 1 TAB; Start 09/29/16 at 19:00 Oxycodone/ Acetaminophen (Percocet (5/ 325)) 2 tab Q4H PRN PO PAIN LEVEL 7-10 Last administered on 10/05/16 06:00; Admin Dose 2 TAB; Start 09/29/16 at 19:00 Simethicone (Mylicon) 160 mg Q8H PRN PO DISTENSION/GAS/BLOATING; Start at 19:00 Sodium Biphosphate/ Sodium Phosphate 133 ml 133 ml DAILY PRN [place] CONSTIPATION; Start 09/29/16 at 19:00 Oxytocin/Lactated Ringer's 500 ml @ 0 mls/hr ONCE PRN IV For Hemorrhage Management; Start 09/29/16 at 19:00 Methylergonovine Maleate (Methergine) 0.2 mg ONCE PRN IM VAGINAL BLEEDING; Start 09/29/16 at 19:00 Carboprost Tromethamine (Hemabate) 250 mcg ONCE PRN IM VAGINAL BLEEDING; Start 09/29/16 at 19:00 Misoprostol (Cytotec) 1,000 mcg ONCE PRN [place] VAGINAL BLEEDING; Start 09/29/16 at 19:00 Ibuprofen (Motrin) 600 mg Q6H PRN PO PAIN Last administered on 10/06/16 22:38 ; Admin Dose 600 MG; Start 09/29/16 at 19:00 Acetaminophen 500 mg 500 mg Q6H PRN PO PAIN AND OR ELEVATED TEMP; Start at 19:00 Magnesium Sulfate (Magnesium Sulfate 20 Gm/500 ml) 500 ml @ 50 mls/hr Q10H IV Last administered on 10/03/16 08:54; Admin Dose 50 MLS/HR; Start 10/02/16 at 17 :30; Status Future Hold Hydralazine HCl (Apresoline) 25 mg TID PO ; Start 10/03/16 at 13:00; Status Future Hold Clonidine (Catapres) 0.1 mg Q6H PRN PO ELEVATED BLOOD PRESSURE Last administered on 10/04/16 22:23; Admin Dose 0.1 MG; Start 10/03/16 at 10:30 Nifedipine 60 mg 60 mg BID PO Last administered on 10/07/16 09:43; Admin Dose 60 MG; Start 10/05/16 at 21:00 Magnesium Sulfate (Magnesium Sulfate 20 Gm/500 ml) 500 ml @ 50 mls/hr Q10H IV ; Start 10/05/16 at 15:30; Status Future Hold Prenat Multivit/ Siding Stapler/Iron/Folic Ac ( S) 1 tab DAILY PO Last administered on 10/07/16 09:42; Admin Dose 1 TAB; Start 10/07/16 at 09:00 Ferrous Sulfate (Ferrous Sulfate (Ec)) 325 mg DAILY PO Last administered on 09:42; Admin Dose 325 MG; Start 10/07/16 at 09:00 Ascorbic Acid (Vitamin C) 500 mg DAILY PO Last administered on 10/07/16 09:42 ; Admin Dose 500 MG; Start 10/07/16 at 09:00 JOHNATHON REY MD Oct 07, 2016 10:15
[2016-10-07] MEDS: METOPROLOL 50 MG TAB PO SCH ×2 (10:30→20:58)
[2016-10-07] MEDS ORDERED: MAGNESIUM OXIDE 400 MG TAB PO ONE (10:30)
[2016-10-07] MEDS ORDERED: METOPROLOL 25 MG TAB PO SCH (10:30)
--- NOTE | 2016-10-07 15:35 | CONS ---
Date/Time of Note Date/Time of Note DATE: 10/07/16 TIME: 15:32 Assessment/Plan Assessment/Plan Chief Complaint/Hosp Course IMPRESSION: 1. Hypertension, likely -induced.-improving on oral CCB 2. Abnormal electrocardiogram with inferior T-wave flattening to biphasic T- wave abnormalities.-negative troponin x 2 3. Status post delivery. 4. Systolic murmur.-NL ERF by echo with trace to mild MR/TR 5. Orthostasis/tachycardia with standing-? etiology volume depletion/ deconditioned/procardia? Recc: -Tele -serial ecg's -Will give additional IVF x 1 liter -Procardia changes to metoprolol -agree with mag repletion as necessary -D/C planning when BP stable and no significant tachy with standing Problems: Consultation Date/Type/Reason Admit Date/Time Sep 28, 2016 at 11:16 Initial Consult Date 10/05/2016 Type of Consultation: Cardiology Reason for Consultation HTN/tachycardia Referring Provider: KRISTOFER PEPPER MD Exam/Review of Systems Vital Signs Vitals Vital Signs Date Time Temp Pulse Resp B/P Pulse Ox O2 Delivery O2 Flow Rate FiO2 10/07/16 12:09 101 10/07/16 11:43 97.5 20 149/89 100 10/06/16 04:00 Room Air Intake and Output 10/06/16 10/06/16 10/07/16 15:00 23:00 07:00 Intake Total 450 ml 1220 ml Balance 450 ml 1220 ml Exam Review of Systems: CONSTITUTIONAL: No fevers, chills. PULMONARY: No sob CARDIOVASCULAR: No chest pain/palpitations GASTROINTESTINAL: No nausea/vomiting. GENITOURINARY: No hematuria/dysuria. MUSCULOSKELETAL: No myagias/arthalgias. PSYCHIATRIC: The patient denies depression. NEUROLOGIC: No weakness Constitutional: alert Psych: no complaints Head: normocephalic ENMT: mucosa pink and moist Neck: jvd (none), supple Respiratory: clear to auscultation Cardiovascular: regular rate and rhythm Gastrointestinal: non-tender, soft Musculoskeletal: muscle tone (normal) Extremities: edema (none) Neurological: other (No focal deficits) Results Result Diagram: 10/06/16 0710 10/06/16 0710 Medications Medications Current Medications Methylergonovine Maleate (Methergine) 0.2 mg Q6H PRN PO VAGINAL BLEEDING; Start 09/29/16 at 19:00 Oxycodone/ Acetaminophen (Percocet (5/ 325)) 1 tab Q4H PRN PO PAIN LEVEL 4-6 Last administered on 10/04/16 20:28; Admin Dose 1 TAB; Start 09/29/16 at 19:00 Oxycodone/ Acetaminophen (Percocet (5/ 325)) 2 tab Q4H PRN PO PAIN LEVEL 7-10 Last administered on 10/05/16 06:00; Admin Dose 2 TAB; Start 09/29/16 at 19:00 Simethicone (Mylicon) 160 mg Q8H PRN PO DISTENSION/GAS/BLOATING; Start at 19:00 Sodium Biphosphate/ Sodium Phosphate 133 ml 133 ml DAILY PRN [place] CONSTIPATION; Start 09/29/16 at 19:00 Oxytocin/Lactated Ringer's 500 ml @ 0 mls/hr ONCE PRN IV For Hemorrhage Management; Start 09/29/16 at 19:00 Methylergonovine Maleate (Methergine) 0.2 mg ONCE PRN IM VAGINAL BLEEDING; Start 09/29/16 at 19:00 Carboprost Tromethamine (Hemabate) 250 mcg ONCE PRN IM VAGINAL BLEEDING; Start 09/29/16 at 19:00 Misoprostol (Cytotec) 1,000 mcg ONCE PRN [place] VAGINAL BLEEDING; Start 09/29/16 at 19:00 Ibuprofen (Motrin) 600 mg Q6H PRN PO PAIN Last administered on 10/06/16 22:38 ; Admin Dose 600 MG; Start 09/29/16 at 19:00 Acetaminophen 500 mg 500 mg Q6H PRN PO PAIN AND OR ELEVATED TEMP; Start at 19:00 Magnesium Sulfate (Magnesium Sulfate 20 Gm/500 ml) 500 ml @ 50 mls/hr Q10H IV Last administered on 10/03/16 08:54; Admin Dose 50 MLS/HR; Start 10/02/16 at 17 :30; Status Future Hold Hydralazine HCl (Apresoline) 25 mg TID PO ; Start 10/03/16 at 13:00; Status Future Hold Clonidine 0.1 mg 0.1 mg Q6H PRN PO ELEVATED BLOOD PRESSURE Last administered on 10/04/16 22:23; Admin Dose 0.1 MG; Start 10/03/16 at 10:30 Magnesium Sulfate (Magnesium Sulfate 20 Gm/500 ml) 500 ml @ 50 mls/hr Q10H IV ; Start 10/05/16 at 15:30; Status Future Hold Prenat Multivit/ Assisted Living Nursing Director/Iron/Folic Ac ( S) 1 tab DAILY PO Last administered on 10/07/16 09:42; Admin Dose 1 TAB; Start 10/07/16 at 09:00 Ferrous Sulfate (Ferrous Sulfate (Ec)) 325 mg DAILY PO Last administered on 09:42; Admin Dose 325 MG; Start 10/07/16 at 09:00 Ascorbic Acid (Vitamin C) 500 mg DAILY PO Last administered on 10/07/16 09:42 ; Admin Dose 500 MG; Start 10/07/16 at 09:00 Metoprolol Tartrate (Lopressor) 50 mg BID PO ; Start 10/07/16 at 10:30 PRANAY ZAVALA Oct 07, 2016 15:35
[2016-10-08] VITALS (8 sets, daily range): BP systolic 140–166; BP diastolic 74–90; PULSE 74–112; RESP 17–18
[2016-10-08] MEDS: ASCORBIC ACID 500 MG TAB PO SCH (08:15)
[2016-10-08] MEDS: FERROUS SULFATE (EC) 325 MG TAB PO SCH (08:15)
[2016-10-08] MEDS: METOPROLOL 50 MG TAB PO SCH ×2 (08:15→13:10)
[2016-10-08] MEDS: MULTIVIT/MIN/FOLATE/IRON/PREN TAB PO SCH (08:15)
--- NOTE | 2016-10-08 13:59 | CONS ---
Date/Time of Note Date/Time of Note DATE: 10/08/16 TIME: 13:56 Assessment/Plan Assessment/Plan Chief Complaint/Hosp Course IMPRESSION: 1. Hypertension, likely -induced.-- now on BB given tachy and orthostasis while on CCB 2. Abnormal electrocardiogram with inferior T-wave flattening to biphasic T- wave abnormalities.-negative troponin x 2 3. Status post delivery. 4. Systolic murmur.-NL ERF by echo with trace to mild MR/TR 5. Orthostasis/tachycardia with standing-? etiology volume depletion/ deconditioned/procardia?- currently improved off of procardia s/p additional IVF on BB Recc: -Tele -serial ecg's -Continue metoprolol -agree with mag repletion as necessary -D/C planning if BP remains reasonably controlled with no significant tachy with standing Problems: Consultation Date/Type/Reason Admit Date/Time Sep 28, 2016 at 11:16 Initial Consult Date 10/05/2016 Type of Consultation: Cardiology Reason for Consultation HTN Referring Provider: KRISTOFER PEPPER MD Exam/Review of Systems Vital Signs Vitals Vital Signs Date Time Temp Pulse Resp B/P Pulse Ox O2 Delivery O2 Flow Rate FiO2 10/08/16 12:05 82 10/08/16 11:45 98.8 17 141/87 99 10/06/16 04:00 Room Air Intake and Output 10/07/16 10/07/16 10/08/16 15:00 23:00 07:00 Intake Total 900 ml 1000 ml Output Total 400 ml Balance 500 ml 1000 ml Exam Review of Systems: CONSTITUTIONAL: No fevers, chills. PULMONARY: No sob CARDIOVASCULAR: No chest pain/palpitations GASTROINTESTINAL: No nausea/vomiting. GENITOURINARY: No hematuria/dysuria. MUSCULOSKELETAL: No myagias/arthalgias. PSYCHIATRIC: The patient denies depression. NEUROLOGIC: No weakness Constitutional: alert, oriented Psych: no complaints Head: normocephalic ENMT: mucosa pink and moist Neck: jvd (8 cm water), supple Respiratory: clear to auscultation Cardiovascular: regular rate and rhythm Gastrointestinal: non-tender, soft Musculoskeletal: muscle tone (normal) Extremities: edema (none) Neurological: other (No focal deficits) Results Result Diagram: 10/06/16 0710 10/06/16 0710 Medications Medications Current Medications Methylergonovine Maleate (Methergine) 0.2 mg Q6H PRN PO VAGINAL BLEEDING; Start 09/29/16 at 19:00 Oxycodone/ Acetaminophen (Percocet (5/ 325)) 1 tab Q4H PRN PO PAIN LEVEL 4-6 Last administered on 10/04/16 20:28; Admin Dose 1 TAB; Start 09/29/16 at 19:00 Oxycodone/ Acetaminophen (Percocet (5/ 325)) 2 tab Q4H PRN PO PAIN LEVEL 7-10 Last administered on 10/05/16 06:00; Admin Dose 2 TAB; Start 09/29/16 at 19:00 Simethicone (Mylicon) 160 mg Q8H PRN PO DISTENSION/GAS/BLOATING; Start at 19:00 Sodium Biphosphate/ Sodium Phosphate 133 ml 133 ml DAILY PRN [place] CONSTIPATION; Start 09/29/16 at 19:00 Oxytocin/Lactated Ringer's 500 ml @ 0 mls/hr ONCE PRN IV For Hemorrhage Management; Start 09/29/16 at 19:00 Methylergonovine Maleate (Methergine) 0.2 mg ONCE PRN IM VAGINAL BLEEDING; Start 09/29/16 at 19:00 Carboprost Tromethamine (Hemabate) 250 mcg ONCE PRN IM VAGINAL BLEEDING; Start 09/29/16 at 19:00 Misoprostol (Cytotec) 1,000 mcg ONCE PRN [place] VAGINAL BLEEDING; Start 09/29/16 at 19:00 Ibuprofen (Motrin) 600 mg Q6H PRN PO PAIN Last administered on 10/06/16 22:38 ; Admin Dose 600 MG; Start 09/29/16 at 19:00 Acetaminophen 500 mg 500 mg Q6H PRN PO PAIN AND OR ELEVATED TEMP; Start at 19:00 Magnesium Sulfate (Magnesium Sulfate 20 Gm/500 ml) 500 ml @ 50 mls/hr Q10H IV Last administered on 10/03/16 08:54; Admin Dose 50 MLS/HR; Start 10/02/16 at 17 :30; Status Future Hold Hydralazine HCl (Apresoline) 25 mg TID PO ; Start 10/03/16 at 13:00; Status Future Hold Clonidine 0.1 mg 0.1 mg Q6H PRN PO ELEVATED BLOOD PRESSURE Last administered on 10/08/16 06:23; Admin Dose 0.1 MG; Start 10/03/16 at 10:30 Magnesium Sulfate (Magnesium Sulfate 20 Gm/500 ml) 500 ml @ 50 mls/hr Q10H IV ; Start 10/05/16 at 15:30; Status Future Hold Prenat Multivit/ [place]/Iron/Folic Ac ( S) 1 tab DAILY PO Last administered on 10/08/16 08:15; Admin Dose 1 TAB; Start 10/07/16 at 09:00 Ferrous Sulfate (Ferrous Sulfate (Ec)) 325 mg DAILY PO Last administered on 08:15; Admin Dose 325 MG; Start 10/07/16 at 09:00 Ascorbic Acid (Vitamin C) 500 mg DAILY PO Last administered on 10/08/16 08:15 ; Admin Dose 500 MG; Start 10/07/16 at 09:00 Metoprolol Tartrate (Lopressor) 50 mg BID PO Last administered on 10/08/16 13: 10; Admin Dose 50 MG; Start 10/07/16 at 10:30 PRANAY ZAVALA Oct 08, 2016 13:59
--- NOTE | 2016-10-08 15:38 | PN ---
Date/Time of Note Date/Time of Note DATE: 10/08/16 TIME: 15:31 OB Subjective Subjective Subjective Denies any complaint, vaginal bleeding minimal. Pumping her breast, No headache , no dizziness, no symptoms, no CP, no shortness of breath OB Objective Objective Objective GA: A&O, NAD Abdomen, soft, non tender, no rebound tenderness, no guarding, no rigidity Extremities: no calf tenderness, no click, no edema Incision: C/D/ I Hematology - 72 Hrs Test 10/06/16 07:10 White Blood Count 8.710^3/ul (4.8-10.8) Red Blood Count 3.1510^6/ul (4.20-5.40) L Hemoglobin 8.9g/dl (12.0-16.0) L Hematocrit 27.4% (37.0-47.0) L Mean Corpuscular Volume 87.0fl (82.0-101.0) Mean Corpuscular Hemoglobin 28.3pg (29.0-33.0) L Mean Corpuscular Hemoglobin Concent 32.5g/dl (32.0-37.0) Red Cell Distribution Width 13.5% (11.5-14.5) Platelet Count 34228^3/UL (140-415) Mean Platelet Volume 9.5fl (7.4-10.4) Neutrophils % 64.4% (39.0-77.0) Lymphocytes % 26.2% (15.0-51.0) Monocytes % 7.0% (0.0-11.0) Eosinophils % 1.4% (0.0-7.0) Basophils % 0.5% (0.0-2.0) Nucleated Red Blood Cells % 0.0/100WBC (0.0-0.0) Neutrophils # 5.610^3/ul (1.6-7.5) Lymphocytes # 2.310^3/ul (0.8-2.9) Monocytes # 0.610^3/ul (0.3-0.9) Eosinophils # 0.110^3/ul (0.0-0.5) Basophils # 0.010^3/ul (0.0-0.1) Nucleated Red Blood Cells # 0.010^3/ul (0.0-0.0) Chemistry Test 10/06/16 07:10 Sodium Level 134mmol/L (135-144) L Potassium Level 4.3mmol/L (3.5-5.1) Chloride Level 107mmol/L (97-110) Carbon Dioxide Level 24mmol/L (21-31) Anion Gap 7 (8-16) L Blood Urea Nitrogen 8mg/dl (7-20) Creatinine 0.50mg/dl (0.44-1.00) Glucose Level 82mg/dl (70-220) Calcium Level 8.5mg/dl (8.4-10.2) Magnesium Level 1.8mg/dl (1.7-2.5) Iron Level 31ug/dl (35-150) L Total Iron Binding Capacity 364ug/dl (241-421) Percent Iron Saturation 9% SAT (22-52) L Ferritin 17.7ng/ml (6.2-137.0) OB Assessment/Plan Other Assessment: S/p section for severe superimposed preclampsia and abruption Patient with history of CHTN, Non complaint with medictions s/p Medicne and cardiology consultation for management of HTN Now blood pressure fairly good control, Patient has been signed off by cards and IM. Apprarently with new blood pressure meds, ( metoprolol), better tolerance, no orthostatics. No ob problem at this time Breast feeding Other plan: DC home Follow up with cardiology, medicine and OBGYn Strict preclampsia precaution given Patient to contact her insurance for an OBGYN for follow up within 1-2 days after DC Follow up with Dr. Zhang ( cardiology) as well Patient repetitively counseled regarding risk for non complaincy with HTN medications and dangers to her self including risk for Stroke, retirement and short term disability, and increased risk for superimposed preclampsia in the first 14 days had been repetitively explained and patient aware of the symptoms. KRISTOFER PEPPER MD Oct 08, 2016 15:38
--- NOTE | 2016-10-08 15:41 | PD.PPDC ---
HEAD START DIRECTOR Discharge Instruction Provider Information Physician Information Kristofer Pepper MD Condition Patient Condition: Good Diet Special Diet: low sodium diet Activity/Restrictions Restrictions: No Exercising No Lifting Minimize Stair-climbing No Sexual Activity Nothing in the Vagina No [place] No Tampons, douche Follow-up Follow-up with Physician: 2, Day/Days Provider Information: Follow up in 1-2 days after DC home with cardiology and OBGYN Follow up in 1 and 2 weeks and 6 weeks with above services Return to clinic for HAT BLOCKER Instructions: Fever greater than 101 Chills Worsening abdominal pain Excessive Vaginal Bleeding More than 2 pads per hour Unable to tolerate diet Comment: Blurred vision, Epigastric pain, RUQ pain, leg pain with tenderness , SOB , chest pain, dizziness, lightheadadness or any other concerns OB Instructions: Breast Tenderness Depression Blurried Vision Headache Surgical Instructions: Incisional Drainage Incisional Redness KRISTOFER PEPPER MD Oct 08, 2016 15:41
[2016-10-08] MEDS ORDERED: IBUP-1542 PO (15:45)
[2016-10-08] MEDS ORDERED: PRENAT PO (15:45)
[2016-10-08] MEDS ORDERED: METO-429 PO (15:45)
[2016-10-08] MEDS ORDERED: LANO28CR TOP (15:45)
[2016-10-08] MEDS ORDERED: ASC500 PO (15:45)
[2016-10-08] MEDS ORDERED: FER325 PO (15:45)
--- NOTE | 2016-10-08 15:57 | DS ---
Date/Time of Note Date/Time of Note DATE: 10/08/16 TIME: 15:47 Discharge Summary Admission/Discharge Info Admit Date/Time Sep 28, 2016 at 11:16 Discharge Date/Time Final Diagnosis CHTN with superimposed preeclampsia Patient Condition: Good Consults Cardiology internal medicine Procedures section due to superimposed preclampsia CHTN with superimposed preclampsia Non adherence to medical treatment Declined psychiatric consultation and evaluation Hx of Present Illness 31 years old female with no care during her and severely elevated blood pressure presented to the hospital with vaginal bleeding concernning for placental abruption. Patient did not have any OB care during her . she reported history of preclampsia in prior pregnancies. she had prior admision due to severely elevated blood pressure, Declined all treatment and eventually due to placental abruption due to superimposed severe preclampsia underwent emergency section. Post she received Magnesium for seizure prophylaxis. she evaluated by cardiology and medicine service for management of HTN. Eventually her blood pressure well controlled on Metoporlol. she was asymptomatic with that medication. She is s/p echo consistent with mild MR. Patient was non complaint with medical advised repetitively and on many occasions, she refused psychiatric evaluation, On HD # 10, after being asymptomatic with metoprolol ordered by cardiology, She was noted to be stable and asymtpomatic and discharged from medicine, cardiology and OBGYN She was given strict preclampsia precaution and signs and symptoms explained, Risk for non adherence to medical treatment including grave prognosis including fdc and short term disability and discussed with the patient,. She was counseled repetitively by different services during this hospitalization. She was eventullay discharge home in stable conditon with instructions for follow up after discharge home with OBGYN, cardiology and medicine, Hospital Course IMPRESSION: 1. Hypertension, likely -induced.-- now on BB given tachy and orthostasis while on CCB 2. Abnormal electrocardiogram with inferior T-wave flattening to biphasic T- wave abnormalities.-negative troponin x 2 3. Status post delivery. 4. Systolic murmur.-NL ERF by echo with trace to mild MR/TR 5. Orthostasis/tachycardia with standing-? etiology volume depletion/ deconditioned/procardia?- currently improved off of procardia s/p additional IVF on BB Recc: -Tele -serial ecg's -Continue metoprolol -agree with mag repletion as necessary -D/C planning if BP remains reasonably controlled with no significant tachy with standing Home Meds Active Scripts Lanolin* ([id number]*) 28 Gm Cream..g., 1 APPLIC TOP BEDSIDE MEDICATION Y for BEDSIDE FOR AMALIA TO NIPPLES for 20 Days, #3 BOX 1 Refill Prov:KRISTOFER PEPPER MD 10/08/16 Multivit/Min/Fol Ac/Iron/Pren* ( S*) 1 Tab Tab, 1 TAB PO DAILY for 30 Days, #30 TAB 2 Refills Prov:KRISTOFER PEPPER MD 10/08/16 Ascorbic Acid (Vitamin C) 500 Mg Tab, 500 MG PO DAILY for 30 Days, #30 TAB Prov:KRISTOFER PEPPER MD 10/08/16 Ibuprofen* (Ibuprofen*) 600 Mg Tablet, 600 MG PO Q6H Y for PAIN for 10 Days, # 40 TAB 1 Refill Prov:KRISTOFER PEPPER MD 10/08/16 Metoprolol Tartrate* (Lopressor*) 50 Mg Tab, 50 MG PO BID for 30 Days, #60 TAB 2 Refills Prov:KRISTOFER PEPPER MD 10/08/16 Ferrous Sulfate* (Ferrous Sulfate*) 325 Mg Tabec, 325 MG PO DAILY for 30 Days, # 60 TAB 2 Refills Prov:KRISTOFER PEPPER MD 10/08/16 Follow-up Plan in 1-2 days witn cards and OBGYN 1-2 and 6 weeks with above services KRISTOFER PEPPER MD Oct 08, 2016 15:57
== END 2016-10-08 18:40 | disposition home or self-care (01) | DRG 766 ==
LOC: OBT 08:56 → L-D 08:57 → OBT 11:13 → OBG 11:16 → L-D 09-29 11:42 → PP1 09-30 17:07 → TEL 10-02 20:15
PROVIDERS: ADMIT Obstetrics & Gynecology Obstetrics; ATTEND Obstetrics & Gynecology Obstetrics
PROC: 10D00Z1 Extraction of Products of Conception, Low, Open Approach (ICD-10-PCS; principal; 2016-09-29 13:00)
DX: O14.14 Severe pre-eclampsia complicating childbirth (principal); D50.8 Other iron deficiency anemias; O90.89 Other complications of the puerperium, not elsewhere classified; O99.02 Anemia complicating childbirth; O75.89 Other specified complications of labor and delivery; R01.1 Cardiac murmur, unspecified; Y92.9 Unspecified place or not applicable; O46.8X3 Other antepartum hemorrhage, third trimester; O99.89 Other specified diseases and conditions complicating pregnancy, childbirth and the puerperium; O76 Abnormality in fetal heart rate and rhythm complicating labor and delivery; R94.31 Abnormal electrocardiogram [ECG] [EKG]; R06.02 Shortness of breath; R51 Headache; V49.9XXA Car occupant (driver) (passenger) injured in unspecified traffic accident, initial encounter; Z53.29 Procedure and treatment not carried out because of patient's decision for other reasons; Z88.8 Allergy status to other drugs, medicaments and biological substances; Z88.6 Allergy status to analgesic agent; Z37.0 Single live birth; Z3A.35 35 weeks gestation of pregnancy; Z91.14 Patient's other noncompliance with medication regimen
CPT/HCPCS: 76815; 76818; 76820; 80048; 80053; 80061; 80076; 81001; 81003; 82728; 83540; 83735; 84484; 84560; 85025; 85362; 85384; 85610; 85730; 86592; 86703; 86762; 86803; 86850; 86900; 86901; 86920; 87340; 88307; 90715; 93005; 93306; 99464; G0463; J0690; J1100; J1170; J1885; J2274; J2405; J2590; J3010; J3475; J7040; J7120

== ENCOUNTER 2017-05-12 09:34 | Inpatient (IN) | payer MEDICAID, OTHER ==
[~2017-05-12 09:34] MED LIST changes: -AMO500 PO; +ASC500 PO; +FER325 PO; +IBUP-1542 PO; +LANO28CR TOP; +METO-429 PO; -NIFE60TA60 PO; +PRENAT PO
[2017-05-12] MEDS ORDERED: hydrALAzine 20 MG INJ IV ONE (10:30)
[2017-05-12 10:31] LABS: BASOPHILS % 0.4 % (0.0-2.0); EOSINOPHILS % 0.1 % (0.0-7.0); HEMATOCRIT 32.3 % (37.0-47.0); LYMPHOCYTES % 8.8 % (15.0-51.0); MEAN CORPUSCULAR HEMOGLOBIN 22.2 pg (29.0-33.0); MEAN CORPUSCULAR VOLUME 71.6 fl (82.0-101.0); MONOCYTE # 0.6 10^3/ul (0.3-0.9); MONOCYTES % 5.1 % (0.0-11.0); NEUTROPHIL # 9.3 10^3/ul (1.6-7.5); NEUTROPHILS % 85.3 % (39.0-77.0); PLATELET COUNT 309 10^3/UL (140-415); RED BLOOD COUNT 4.51 10^6/ul (4.20-5.40); RED CELL DISTRIBUTION WIDTH 16.9 % (11.5-14.5); WHITE BLOOD COUNT 10.9 10^3/ul (4.8-10.8)
--- NOTE | 2017-05-12 10:31 | HP ---
Date/Time of Note Date/Time of Note DATE: 05/12/17 TIME: 10:29 OB - History Hx of Present Free Text/Dictation 20+wks with Right flank pain : 11 Para: 6 Care: None Obstetrical Complications: Other (chronic HTN) Medical Complications: None Past Family/Social History * Past Medical, Surgical, Family and Obstetric Histories reviewed from chart. OB Admission Exam Physical Exam Abdomen: WNL (+CVA tenderness) Extremities: Normal Reflexes: Normal Membranes: Intact Heart Rate: 150's OB Assessment/Plan Reason for admission: observation Plan: Expectant Management Other plan: Prenatalogy consult Ancef Labs Urine culture Patient is refusing any HTN medication,Extensive counselling regarding risks was given HORACIO CROW M.D. May 12, 2017 10:31
[2017-05-12 10:51] LABS: ALBUMIN 3.6 g/dl (3.3-4.9); ALBUMIN/GLOBULIN RATIO 1.02; BILIRUBIN,INDIRECT 0.3 mg/dl (0-1.1); BILIRUBIN,TOTAL 0.3 mg/dl (0.2-1.3); CALCIUM 8.6 mg/dl (8.4-10.2); CREATININE 0.71 mg/dl (0.44-1.00); POTASSIUM 3.7 mmol/L (3.5-5.1); TOTAL PROTEIN 7.1 g/dl (6.1-8.1); URIC ACID 3.3 mg/dl (3.1-7.9)
--- NOTE | 2017-05-12 11:01 | RADRPT ---
PROCEDURE: US OB. CLINICAL INDICATION: Preeclampsia TECHNIQUE: Multiple sonographic images of the pelvis were obtained. The images were reviewed on a PACS workstation. COMPARISON: 09/28/2016 FINDINGS: The cervix is closed with a length of 1.3 cm. There is a single viable intrauterine gestation. Cardiac activity is present with 168 beats per min erin. There is a cephalic presentation. Measurements were made in order to determine age. The results are as follows: BPD =5.13 cm HC =18.68 cm AC =15.64 cm FL =3.20 cm. Estimated gestational age of approximately 20 weeks 6 days. The estimated date of delivery is 09/23/2017. The EFW = 358.93 g 50.1% . The placenta is anterior. There is no evidence for an abruption or placenta previa There is a normal amount of amniotic fluid IMPRESSION: Single viable intrauterine gestation of approximately 20 weeks 6 days The estimated date of delivery is 09/23/2017 . Short cervical length of 1.36 cm. Funneling is identified. .Lenin Lynch MD, Date Time Electronically viewed and signed by .Lenin Lynch MD, on 05/12/2017 11:01 .W/
[2017-05-12 11:27] LABS: ADD UMIC YES; UR ASCORBIC ACID NEGATIVE (NEGATIVE); UR BACTERIA FEW /HPF (NONE SEEN); UR BILIRUBIN (Dip) NEGATIVE (NEGATIVE); UR BLOOD (Dip) 1+ mg/dL (NEGATIVE); UR CLARITY TURBID (CLEAR); UR COLOR YELLOW (YELLOW); UR GLUCOSE (Dip) NEGATIVE (NEGATIVE); UR KETONES (Dip) NEGATIVE (NEGATIVE); UR LEUKOCYTE ESTERASE (Dip) 3+ Leu/ul (NEGATIVE); UR MUCUS MANY /HPF (NONE SEEN); UR NITRITE (Dip) POSITIVE (NEGATIVE); UR NONSQUAMOUS EPITHELIAL CELL 2 /HPF (NONE SEEN); UR RBC 37 /HPF (0-5); UR SPECIFIC GRAVITY (Dip) 1.016 (1.003-1.030); UR SQUAMOUS EPITHELIAL CELL FEW /HPF (FEW); UR TOTAL PROTEIN (Dip) 2+ mg/dl (NEGATIVE); UR UROBILINOGEN (Dip) NEGATIVE (NEGATIVE)
[2017-05-12] MEDS ORDERED: CEFAZOLIN 2 GM/50 ML (PMX) 50 ML IVPB ONE (11:53)
[2017-05-12] MEDS: PRENATAL VITAMIN PO SCH (12:00)
[2017-05-12] MEDS: LACTATED RINGER'S 1,000 ML IV SCH ×2 (12:02→17:53)
[2017-05-12] MEDS: CEFAZOLIN 2 GM/50 ML (PMX) 50 ML IVPB SCH ×2 (12:02→21:59)
[2017-05-12 12:04] LABS: CANNABINOIDS Positive (NEGATIVE)
[2017-05-12 12:14] LABS: BARBITURATES Negative (NEGATIVE); BENZODIAZEPINES Negative (NEGATIVE); COCAINE Negative (NEGATIVE)
[2017-05-12 12:19] LABS: OPIATES Negative (NEGATIVE)
[2017-05-12] MEDS: ACETAMINOPHEN 325 MG TAB PO PRN ×3 (12:41→22:38)
--- NOTE | 2017-05-12 15:55 | TRIAGE ---
OB Triage Datetime Report Generated by CPN: 05/12/2017 15:54 Datetime: 05/12/2017 15:19 Labor Evaluation Frequency: 0 Monitor Mode: External Resting Tone [place]: Relaxed Datetime: 05/12/2017 14:20 Labor Evaluation Frequency: 0 Monitor Mode: External Resting Tone [place]: Relaxed Datetime: 05/12/2017 12:16 Assessment Type: Admission Assessment Vaginal Bleeding: None Maternal Assessment Level of Consciousness: Fully Conscious DTR's/Clonus: DTRs 2+; No Clonus Headache: Denies Blurred Vision: No Respiratory Effort: Unlabored; Regular Rhythm; Equal Expansion Breath Sounds, Left: Clear and Equal Breath Sounds, Right: Clear and Equal Nausea/Vomiting: Denies RUQ Epigastric Pain: Denies Facial Edema: None Fall Risk Assessment History of Falling: (0) No Secondary Diagnosis: (0) No Ambulatory Aid: (0) Bedrest/Nurse Assist IV Therapy: (20) Yes Gait: (0) Normal/Bedrest/Immobile Mental Status: (0) Oriented to Own Ability Fall Score: 20 Fall Risk Score Definition: No Risk: No action required Pain Assessment Pain Scale: 8 Pain Type: Pressure Pain Location: Right Flank Pain Goal: 0 Vaginal Exam Dilatation (cms): cl 1.3 Datetime: 05/12/2017 12:14 Labor Evaluation Frequency: 0 Monitor Mode: External Resting Tone [place]: Relaxed Datetime: 05/12/2017 12:08 Contraction Comments: toco placed on lower abd Datetime: 05/12/2017 12:06 Pain Assessment Pain Scale: 8 Pain Location: Right Flank Pain Goal: 0 Datetime: 05/12/2017 11:10 Stage of : OB Triage Datetime: 05/12/2017 10:30 Assessment Type: Triage Maternal Assessment Level of Consciousness: Fully Conscious DTR's/Clonus: DTRs 2+; No Clonus Headache: Denies Blurred Vision: No Respiratory Effort: Unlabored; Regular Rhythm; Equal Expansion Breath Sounds, Left: Clear and Equal Breath Sounds, Right: Clear and Equal Nausea/Vomiting: Denies RUQ Epigastric Pain: Denies Lower Extremities Edema: None Degree: None Upper Extremities Edema: None Degree: None Facial Edema: None Fall Risk Assessment History of Falling: (0) No Secondary Diagnosis: (0) No Ambulatory Aid: (0) Bedrest/Nurse Assist IV Therapy: (0) No Gait: (0) Normal/Bedrest/Immobile Mental Status: (0) Oriented to Own Ability Fall Score: 0 Fall Risk Score Definition: No Risk: No action required Datetime: 05/12/2017 10:18 Time of Arrival: 05/12/2017 10:00 EGA: 20.3 Arrived By: Wheelchair Arrived From: Emergency Dept Chief Complaint: Back pain, elevated BPs Contractions: Denies/Absent Rupture of Membranes: Denies Vaginal Bleeding: None Vaginal Discharge: Denies Recent Sexual Intercouse: Denies Abdominal Trauma: Not Applicable Patient Complaints: Other Time Provider Notified: 05/12/2017 10:00 Provider Notified: Teena Initial Plan: EFW, Cervical Length, PIH panel, doppler Datetime: 05/12/2017 10:00 Monitor Mode: External Resting Tone [place]: Relaxed Datetime: 05/12/2017 09:58 Pain Assessment Pain Scale: 8 Pain Presence: Intermittent Pain Type: Ache Pain Location: Abdomen; Back Pain Goal: 0 Pain Relief Measures: Comfort Measures Pain Assessment Comments: Pt reporting pain in back stating "I know I have a UTI" Datetime: 05/12/2017 09:45 Heart Rate FHR Baseline Rate: 160 Monitor Mode: Doppler Datetime: 05/12/2017 09:36 Stage of : OB Triage
--- NOTE | 2017-05-12 18:16 | RADRPT ---
PROCEDURE: Retroperitoneal ultrasound. CLINICAL INDICATION: Flank pain TECHNIQUE: Parker scale and color doppler ultrasound images of the retroperitoneum, kidneys, urinary bladder COMPARISON: No prior studies are available for comparison. FINDINGS: Kidneys: Right length (cm) : 11.4 Left length (cm) : 11.2 Right cortical thickness: Normal. Left cortical thickness: Normal. Echogenicity: Normal bilaterally. Hydronephrosis: Moderate bilateral hydronephrosis. Renal calculi: None. Focal lesions: None. Free fluid/ascites: None. Abdominal aorta: Not visualized by the psychologist educational. Bladder: Moderately distended. Other findings: None. IMPRESSION: Moderate bilateral hydronephrosis. Moderately distended urinary bladder. RPTAT: AADD .Rico Gardiner MD, Date Time Electronically viewed and signed by .Rico Gardiner MD, on 05/12/2017 18:15 .B/
--- NOTE | 2017-05-12 18:18 | PERINOTE ---
Date/Time of Note Date/Time of Note DATE: 05/12/17 TIME: 18:04 Assessment/Recommendations Other Assessments IUP at 20 weeks Hypertension, most likely chronic. Preeclampsia at this GA would be extremely unusual. Given the length of time that this patient has had hypertension, renal damage is very likely. Short cervix, indicating an increased risk for delivery Short interpregnancy interval (delivered in September,) Renal symptoms, uncertain etiology The patient declines antihypertensives and many other interventions. Recommendations: Would continue antibiotic treatment as you are doing. Would consider renal US to evaluate for chronic renal damage or stones Would continue to monitor BP. Current BP does not mandate treatment. Dating is by US, however the patient is very likely to have a small for dates . Would repeat US for growth every 3 weeks. Would seek for earlier dating criteria Would consider referral to the food service helper for a work up for the cause of this patient's periodic elevated BP with systemic symptoms. OB Subjective Free Text/Dictaton Patient admitted with flank pain for presumed pyelonephritis. Also noted to have very elevated blood pressure. Elevated BP has been an element of many prior visits to this hospital HD# 1 IUP @ 20 weeks Current Medications Current Medications Lactated Ringer's 1,000 ml @ 125 mls/hr Q8H IV Last administered on 05/12/17 17:53; Admin Dose 125 MLS/HR; Start 05/12/17 at 11:14 Cefazolin Sodium/ Dextrose (Ancef 2 Gm/50 ml (Pmx)) 50 ml @ 100 mls/hr Q8 IVPB Last administered on 05/12/17 12:02; Admin Dose 100 MLS/HR; Start 05/12/17 at 14:00 Prenat Multivit/ [place]/Iron/Folic Ac () 1 tab DAILY PO ; Start 05/12/17 at 12:00 Ferrous Sulfate (Ferrous Sulfate (Ec)) 325 mg DAILY PO ; Start 05/13/17 at 09:00 Acetaminophen (Tylenol Tab) 650 mg Q4H PRN PO PAIN AND OR ELEVATED TEMP Last administered on 05/12/17 17:53; Admin Dose 650 MG; Start 05/12/17 at 12:30 Past Medical History Medical History: hypertension Surgical History: other ( delivery, ectopic ) 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
[2017-05-13] MEDS: LACTATED RINGER'S 1,000 ML IV SCH ×4 (02:27→22:24)
[2017-05-13] MEDS: CEFAZOLIN 2 GM/50 ML (PMX) 50 ML IVPB SCH ×3 (06:25→22:23)
[2017-05-13] MEDS: ACETAMINOPHEN 325 MG TAB PO PRN ×3 (06:32→19:36)
[2017-05-13] MEDS: FERROUS SULFATE (EC) 325 MG TAB PO SCH (09:00)
[2017-05-13] MEDS: PRENATAL VITAMIN PO SCH (09:00)
[2017-05-13] MEDS ORDERED: PRENATAL VITAMIN PO SCH (09:00)
--- NOTE | 2017-05-13 15:20 | PN ---
Date/Time of Note Date/Time of Note DATE: 05/13/17 TIME: 14:52 OB Subjective Subjective Subjective May 13, 2017 OB hospital visit This is a 31 years old 11 para 6 ectopic 1 3 with estimated date of confinement of September 26, 2016 which makes her 20 weeks and 5 days today . she came to triage yesterday with fever and was admitted. her WBC was elevated . she had a CVA tenderness. ultrasound examination was performed .she was hospitalized due to a strong suspicion of urinary tract infection and pyelonephritis she was placed on antibiotic Ancef 2 g every 6 hours her urinalysis yesterday was 2+ positive for protein 3+ for leukocyte esterase, white count was 10.9. She has a chronic blood pressure .she claims that between the pregnancies. she denies chronic elevated blood pressure ,however this is hard to believe . her urine test was positive for cannabis. She had very difficult course with her previous pregnancies and was repeatedly admitted In this hospital. She did refuse taking any medication for her blood pressure .she refused vaccination for herself and for children. She mostly refused the medication and do not follow the recommendation of doctors and nurses . She says she knows her body better than any Doctor. For this reason she does not want to take any medication . Her blood pressure today is around 145/85. Current Medications Medications (Trade) Dose Ordered Sig/Rosanne Route PRN Reason Start Time Stop Time Status Last Admin Dose Admin Hydralazine HCl 5 mg 5 mg ONCE ONCE IV 05/12/17 10:30 05/12/17 10:48 DC Lactated Ringer's 1,000 ml @ 125 mls/hr Q8H IV 05/12/17 11:14 05/13/17 12:07 Cefazolin Sodium/ Dextrose (Ancef 2 Gm/50 ml (Pmx)) 50 ml @ 100 mls/hr Q8 IVPB 05/12/17 14:00 05/13/17 14:02 Prenat Multivit/ [place]/Iron/Folic Ac () 1 tab DAILY PO 05/12/17 12:00 Ferrous Sulfate (Ferrous Sulfate (Ec)) 325 mg DAILY PO 05/13/17 09:00 Prenat Multivit/ [place]/Iron/Folic Ac 1 tab 1 tab DAILY PO 05/13/17 09:00 UNV Cefazolin Sodium/ Dextrose (Ancef 2 Gm/50 ml (Pmx)) 50 ml @ ud STK-MED ONCE IVPB 05/12/17 11:53 05/12/17 11:54 DC Acetaminophen (Tylenol Tab) 650 mg Q4H PRN PO PAIN AND OR ELEVATED TEMP 05/12/17 12:30 05/13/17 10:44 .. Today heart tone is normal . she does have some degree of costovertebral angle mostly on the left side . Her blood pressure as I mentioned is around 145/80 . Her temperature gradually coming down to 99.8 . She has been seen by Dr. López who also is suspicious of chronic blood pressure for this difficult patient. I had a long discussion with her regarding the need for antibiotic and to limit the use of cannabis or any other drug . We are l still waiting for the final result of the urine culture and sensitivity. . BRITTANI HUBBARD MD May 13, 2017 15:20
[2017-05-13] MEDS ORDERED: ACETAMINOPHEN 1000MG/100ML IV 100 ML IVPB ONE (23:45)
[2017-05-14] MEDS: CEFAZOLIN 2 GM/50 ML (PMX) 50 ML IVPB SCH ×3 (06:08→22:11)
[2017-05-14] MEDS: LACTATED RINGER'S 1,000 ML IV SCH ×2 (08:00→17:06)
[2017-05-14] MEDS: PRENATAL VITAMIN PO SCH (08:32)
[2017-05-14] MEDS: FERROUS SULFATE (EC) 325 MG TAB PO SCH (08:32)
[2017-05-14] MEDS: ACETAMINOPHEN 325 MG TAB PO PRN ×4 (10:02→23:12)
--- NOTE | 2017-05-14 15:19 | QN ---
Documentation Comment May 14, 2017 Hospital visit This is a 31 years old 11 para 6 ectopic 1 3 with estimated date of confinement of September 26, 2016 which makes her 20 weeks and 5 days today . she came to triage yesterday with fever and was admitted. her WBC was elevated . she had a CVA tenderness. Yesterday she was admitted in the hospital and ureter CVA tenderness and evidence of urinary tract infection and pyelonephritis her urine was sent for culture sensitivity and today the result came back E. coli sensitive to Ancef for this reason her antibiotic was changed she is getting Ancef 2 g every 6 hours In the past 6 hours she feels much better is afebrile less CVA tenderness mostly on the left side. Became less combative and follow orders to some degree. 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 BRITTANI HUBBARD MD May 14, 2017 15:19
[2017-05-15] MEDS: LACTATED RINGER'S 1,000 ML IV SCH ×2 (01:47→09:56)
[2017-05-15] MEDS: CEFAZOLIN 2 GM/50 ML (PMX) 50 ML IVPB SCH (06:13)
[2017-05-15] MEDS: ACETAMINOPHEN 325 MG TAB PO PRN ×2 (06:31→10:02)
[2017-05-15] MEDS: PRENATAL VITAMIN PO SCH (08:51)
[2017-05-15] MEDS: FERROUS SULFATE (EC) 325 MG TAB PO SCH (08:51)
--- NOTE | 2017-05-15 11:36 | QN ---
Documentation Comment patient is seen by the bedside,No symptoms .patient is placed on PO antibiotics BP 140-150/90s No headache No blurry vision No epigastric pain CXL 1.3. Patient signs AMA and desires to leave the Hospital .risks discussed. Patient needs a Perinatalogy appointment and also An OB physician to follow up with, HORACIO CROW M.D. May 15, 2017 11:36
--- NOTE | 2017-05-15 11:37 | DS ---
Date/Time of Note Date/Time of Note DATE: 05/15/17 TIME: 11:36 Discharge Summary Admission/Discharge Info Admit Date/Time May 12, 2017 at 10:30 Discharge Date/Time May Discharge Diagnosis Pyelonephritis ,Chronic HTN Short Cervix Patient Condition: Good Hospital Course uneventful Home Meds Active Scripts Lanolin* (Fkm-H-Vjayon*) 28 Gm Cream..g., 1 APPLIC TOP BEDSIDE MEDICATION Y for BEDSIDE FOR AMALIA TO NIPPLES for 20 Days, #3 BOX 1 Refill Prov:KRISTOFER PEPPER MD 10/08/16 Multivit/Min/Fol Ac/Iron/Pren* ( S*) 1 Tab Tab, 1 TAB PO DAILY for 30 Days, #30 TAB 2 Refills Prov:KRISTOFER PEPPER MD 10/08/16 Ascorbic Acid (Vitamin C) 500 Mg Tab, 500 MG PO DAILY for 30 Days, #30 TAB Prov:KRISTOFER PEPPER MD 10/08/16 Ibuprofen* (Ibuprofen*) 600 Mg Tablet, 600 MG PO Q6H Y for PAIN for 10 Days, # 40 TAB 1 Refill Prov:KRISTOFER PEPPER MD 10/08/16 Metoprolol Tartrate* (Lopressor*) 50 Mg Tab, 50 MG PO BID for 30 Days, #60 TAB 2 Refills Prov:KRISTOFER PEPPER MD 10/08/16 Ferrous Sulfate* (Ferrous Sulfate*) 325 Mg Tabec, 325 MG PO DAILY for 30 Days, # 60 TAB 2 Refills Prov:KRISTOFER PEPPER MD 10/08/16 Primary Care Provider Not On Staff Doctor HORACIO CROW M.D. May 15, 2017 11:37
== END 2017-05-15 12:00 | disposition left against medical advice (07) | DRG 781 ==
LOC: OBT 09:34 → L-D 09:35 → OBT 10:30 → OBG 10:30
PROVIDERS: ADMIT Obstetrics & Gynecology; ATTEND Obstetrics & Gynecology
DX: O23.02 Infections of kidney in pregnancy, second trimester (principal); O26.872 Cervical shortening, second trimester; O10.912 Unspecified pre-existing hypertension complicating pregnancy, second trimester; O99.322 Drug use complicating pregnancy, second trimester; O34.219 Maternal care for unspecified type scar from previous cesarean delivery; Z3A.20 20 weeks gestation of pregnancy; Z87.59 Personal history of other complications of pregnancy, childbirth and the puerperium; F12.90 Cannabis use, unspecified, uncomplicated
CPT/HCPCS: 36415; 76775; 76815; 76817; 80053; 80307; 81001; 84560; 85025; 86592; 86703; 86850; 86900; 86901; 87086; 87340; G0463; J0131; J0690; J7120